=== PATIENT | male | born 1960 | race Caucasian/White ===

== ENCOUNTER 2018-02-16 07:07 | Inpatient (IN) | payer MEDICAID ==
[~2018-02-16] VITALS: Ht 190.5 cm; Wt 70.2 kg
[2018-02-16] VITALS (13 sets, daily range): BP systolic 88–119; BP diastolic 51–73
[~2018-02-16 07:07] MED LIST: ALBU2.5V12 NEB; ASPI81TA52 PO; ATOR-2 PO; BECL7.3A7 IH; CLOP75TA15 PO; OMEP-84 PO; SILD100T PO; TRAZ-219 PO
[2018-02-16 08:59] LABS: HEMATOCRIT 45.2 % (42.0-52.0); HEMOGLOBIN 15.1 g/dl (14.0-17.9); MEAN CORPUSCULAR HEMOGLOBIN 34.8 PG (27.0-31.0); MEAN CORPUSCULAR HGB CONC 33.5 % (33.0-36.5); MEAN CORPUSCULAR VOLUME 103.9 FL (78-98); PLATELET COUNT 489 X10'3 (140-440); RED BLOOD COUNT 4.35 X10'6 (4.70-6.10); RED CELL DISTRIBUTION WIDTH 14.4 % (11.5-14.5); WHITE BLOOD COUNT 7.6 X10'3 (4.5-11.0)
[2018-02-16 09:00] LABS: BASOPHILS % (AUTO) 0.6 % (0-1); EOSINOPHILS # (AUTO) 0.2 X10'3 (0-0.9); EOSINOPHILS % (AUTO) 2.2 % (0-6); LYMPHOCYTES # (AUTO) 1.9 X10'3 (1.1-4.8); LYMPHOCYTES % (AUTO) 24.8 % (21-51); MONOCYTES # (AUTO) 0.5 X10'3 (0-0.9); MONOCYTES % (AUTO) 7.2 % (2-12); NEUTROPHILS % (AUTO) 65.2 % (42-75)
[2018-02-16] MEDS ORDERED: ondansetron/PF 4mg/2ml inj IV PRN ×2 (09:00→14:30)
[2018-02-16] MEDS ORDERED: magnesium 4gm in 100ml NS 100 ML IV PRN (09:00)
[2018-02-16] MEDS ORDERED: potassium Cl 40MEQ/NS 500ml 500 ML IV PRN ×2 (09:00)
[2018-02-16] MEDS ORDERED: potassium Cl 20 mEq SR tablet PO PRN ×2 (09:00)
[2018-02-16] MEDS ORDERED: magnesium Cl slow-release 64mg tablet PO PRN (09:00)
[2018-02-16] MEDS ORDERED: magnesium 1gm/100ml D5W IVPB 100 ML IV PRN (09:00)
[2018-02-16 09:13] LABS: ALANINE AMINOTRANSFERASE 21 U/L (12-78); ALBUMIN 3.6 G/DL (3.4-5.0); ALBUMIN/GLOBULIN RATIO 0.9 (1.1-1.5); ALKALINE PHOSPHATASE 165 IU/L (46-116); ANION GAP 9 (8-16); ASPARTATE AMINO TRANSFERASE 16 U/L (10-37); BILIRUBIN,TOTAL 0.4 MG/DL (0.1-1.0); BLOOD UREA NITROGEN 6 MG/DL (7-18); BUN/CREATININE RATIO 6.6 (5.4-32.0); CALCIUM 9.4 MG/DL (8.5-10.1); CHLORIDE 103 MMOL/L (99-107); CREATININE 0.91 MG/DL (0.60-1.10); GLUCOSE 103 MG/DL (70-104); POTASSIUM 4.1 MMOL/L (3.5-5.1); SODIUM 140 MMOL/L (135-145); TOTAL CARBON DIOXIDE 27.8 MMOL/L (24-32); TOTAL PROTEIN 7.8 G/DL (6.4-8.2); eGFR 86 ML/MIN
[2018-02-16] MEDS ORDERED: bacitracin 15gm ointment TP ONE (14:21)
[2018-02-16] MEDS ORDERED: ceFAZolin 1000mg inj ONE (14:21)
[2018-02-16] MEDS ORDERED: ringers solution, lacted 1,000 ML IV SCH (14:26)
[2018-02-16] MEDS ORDERED: hydrALAZINE 20mg/ml inj. IV PRN (14:30)
[2018-02-16] MEDS ORDERED: enalaprilat dihydrate 2.5mg/2ml vial IV PRN (14:30)
[2018-02-16] MEDS ORDERED: fentaNYL/PF 50MCG/1 ML 2ML syringe IV PRN ×2 (14:30)
[2018-02-16] MEDS ORDERED: morphine 4 MG/ML inj SYRINge IV PRN ×2 (14:30)
[2018-02-16] MEDS ORDERED: sevoflurane 250ml liquid IH ONE (14:46)
[2018-02-16] MEDS ORDERED: fentaNYL/PF 50MCG/1 ML 2ML syringe ONE (14:54)
[2018-02-16] MEDS ORDERED: midazolam 2 mg/2 ml injection ONE (14:54)
[2018-02-16] MEDS ORDERED: phenylephrine 10mg/ml inj. ONE (15:08)
[2018-02-16] MEDS ORDERED: LIDOcaine 2% (20mg/ml) 5ml vial ONE (15:27)
[2018-02-16] MEDS ORDERED: propofol inj 20 ML IV ONE (15:27)
[2018-02-16] MEDS: HYDROcodone/acetaminophen 5mg/325mg tablet PO PRN ×2 (17:32→21:31)
[2018-02-16] MEDS: lactobacillus rhamnosus 10,000 MMU CELLS/CAPSULE PO SCH (20:57)
[2018-02-16] MEDS ORDERED: traZODone 50mg tablet PO SCH (21:00)
[2018-02-16] MEDS: ceFAZolin 1GM/D5W- ADD-VANTAGE 50 ML IV SCH (21:23)
[2018-02-16] MEDS: albuterol 2.5 MG/3 ML nebule NEB SCH (22:00)
[2018-02-17] VITALS: BP 103/56
[2018-02-17] MEDS: ceFAZolin 1GM/D5W- ADD-VANTAGE 50 ML IV SCH ×2 (02:16→08:20)
[2018-02-17] MEDS: albuterol 2.5 MG/3 ML nebule NEB SCH ×2 (03:00→07:31)
[2018-02-17 05:42] LABS: BASOPHILS # (AUTO) 0.1 X10'3 (0-0.2); BASOPHILS % (AUTO) 0.5 % (0-1); EOSINOPHILS # (AUTO) 0.1 X10'3 (0-0.9); EOSINOPHILS % (AUTO) 1.4 % (0-6); HEMATOCRIT 43.7 % (42.0-52.0); HEMOGLOBIN 14.4 g/dl (14.0-17.9); LYMPHOCYTES % (AUTO) 10.3 % (21-51); MEAN CORPUSCULAR HEMOGLOBIN 34.3 PG (27.0-31.0); MEAN CORPUSCULAR VOLUME 103.9 FL (78-98); MEAN PLATELET VOLUME 7.6 FL (7.4-10.4); MONOCYTES # (AUTO) 0.4 X10'3 (0-0.9); MONOCYTES % (AUTO) 4.5 % (2-12); NEUTROPHILS # (AUTO) 8.3 X10'3 (1.8-7.7); NEUTROPHILS % (AUTO) 83.3 % (42-75); PLATELET COUNT 462 X10'3 (140-440); RED BLOOD COUNT 4.21 X10'6 (4.70-6.10); RED CELL DISTRIBUTION WIDTH 13.8 % (11.5-14.5); WHITE BLOOD COUNT 9.9 X10'3 (4.5-11.0)
[2018-02-17 05:57] LABS: ALBUMIN 3.3 G/DL (3.4-5.0); ANION GAP 12 (8-16); BLOOD UREA NITROGEN 12 MG/DL (7-18); BUN/CREATININE RATIO 13.3 (5.4-32.0); CALCIUM 9.5 MG/DL (8.5-10.1); CHLORIDE 103 MMOL/L (99-107); GLUCOSE 135 MG/DL (70-104); POTASSIUM 4.2 MMOL/L (3.5-5.1); SODIUM 139 MMOL/L (135-145); TOTAL CARBON DIOXIDE 24.5 MMOL/L (24-32); eGFR 87 ML/MIN
[2018-02-17 07:11] VITALS: BP 136/70
[2018-02-17] MEDS ORDERED: pantoprazole 40mg Tablet.DR PO SCH (07:30)
[2018-02-17] MEDS ORDERED: clopidogrel 75mg tablet PO SCH (08:00)
[2018-02-17] MEDS ORDERED: K and/or MAG REPLACEMENT MC SCH (08:00)
[2018-02-17] MEDS ORDERED: atorvastatin 20mg tablet PO SCH (08:00)
[2018-02-17] MEDS ORDERED: budesonide 0.5mg/2ml UD nebule IH SCH (08:00)
[2018-02-17] MEDS ORDERED: aspirin 81mg tablet.DR PO SCH (08:00)
[2018-02-17] MEDS: lactobacillus rhamnosus 10,000 MMU CELLS/CAPSULE PO SCH (08:19)
[2018-02-17] MEDS: HYDROcodone/acetaminophen 5mg/325mg tablet PO PRN ×2 (08:19→11:36)
[2018-02-17] MEDS ORDERED: CEPH250T PO (11:02)
[2018-02-17 12:00] VITALS: BP 121/74
[2018-02-17] MEDS ORDERED: traZODone 50mg tablet PO SCH ×2 (20:00→21:00)
[2018-02-17] MEDS ORDERED: non-formulary drug (Trazodone HCl 1 TAB) PO SCH (21:00)
== END 2018-02-17 13:50 | disposition home or self-care (01) | DRG 813 ==
LOC: ER 07:08 → ED HOLD 08:58 → SUR 3N 11:41 → PACU 14:21 → SUR 3N 16:16
PROVIDERS: ADMIT Internal Medicine; ATTEND Internal Medicine
PROC: 0Y9J0ZZ Drainage of Left Lower Leg, Open Approach (ICD-10-PCS; 2018-02-16)
PROC: 3E02340 Introduction of Influenza Vaccine into Muscle, Percutaneous Approach (ICD-10-PCS; principal; 2018-02-17)
DX: M96.841 Postprocedural hematoma of a musculoskeletal structure following other procedure (principal); I89.8 Other specified noninfective disorders of lymphatic vessels and lymph nodes; E78.00 Pure hypercholesterolemia, unspecified; E78.5 Hyperlipidemia, unspecified; I10 Essential (primary) hypertension; I73.9 Peripheral vascular disease, unspecified; J44.9 Chronic obstructive pulmonary disease, unspecified; Y83.2 Surgical operation with anastomosis, bypass or graft as the cause of abnormal reaction of the patient, or of later complication, without mention of misadventure at the time of the procedure; Y82.8 Other medical devices associated with adverse incidents; K21.9 Gastro-esophageal reflux disease without esophagitis; S80.12XA Contusion of left lower leg, initial encounter; F12.90 Cannabis use, unspecified, uncomplicated; Z79.02 Long term (current) use of antithrombotics/antiplatelets; Z79.51 Long term (current) use of inhaled steroids; Z79.82 Long term (current) use of aspirin; Z87.891 Personal history of nicotine dependence; Z23 Encounter for immunization; Z91.030 Bee allergy status; Z79.899 Other long term (current) drug therapy; Y92.89 Other specified places as the place of occurrence of the external cause
CPT/HCPCS: 36415; 80048; 80053; 83735; 85025; 85610; 87070; 87075; 87077; 87186; 93005; 94760; 99285; A7000; G0378; J0690; J2001; J2250; J2370; J2704; J3010; J7120; Q2037

== ENCOUNTER 2018-03-01 13:27 | Inpatient (IN) | payer MEDICAID ==
[2018-03-01] VITALS (16 sets, daily range): BP systolic 101–138; BP diastolic 57–88
[~2018-03-01] VITALS: Ht 190.5 cm; Wt 71.0 kg
[~2018-03-01 13:27] MED LIST changes: +cefazolin/dext.iso 2gm/100 ML IV ONE; +famotidine 20mg tablet PO ONE; +ringers solution, lacted 1,000 ML IV SCH
[2018-03-01] MEDS ORDERED: LYR25C PO (14:14)
[2018-03-01] MEDS: albuterol 2.5 MG/3 ML nebule NEB PRN (14:14)
[2018-03-01] MEDS ORDERED: LISI40TA4 PO (14:14)
[2018-03-01] MEDS ORDERED: ALBU18HF2 INH (14:14)
[2018-03-01] MEDS ORDERED: LAMO100T2 PO (14:14)
[2018-03-01] MEDS ORDERED: LURA20TA PO (14:14)
[2018-03-01] MEDS ORDERED: famotidine 20mg tablet PO ONE (14:15)
[2018-03-01 14:39] LABS: BASOPHILS % (AUTO) 0.2 % (0-1); EOSINOPHILS # (AUTO) 0.6 X10'3 (0-0.9); EOSINOPHILS % (AUTO) 2.5 % (0-6); LYMPHOCYTES # (AUTO) 2.3 X10'3 (1.1-4.8); LYMPHOCYTES % (AUTO) 10.3 % (21-51); MEAN CORPUSCULAR VOLUME 102.8 FL (78-98); MEAN PLATELET VOLUME 7.4 FL (7.4-10.4); MONOCYTES # (AUTO) 1.1 X10'3 (0-0.9); MONOCYTES % (AUTO) 5.2 % (2-12); NEUTROPHILS # (AUTO) 17.9 X10'3 (1.8-7.7); NEUTROPHILS % (AUTO) 81.8 % (42-75); PRE OP HEMATOCRIT 44.9 % (42.0-52.0); PRE OP HEMOGLOBIN 14.8 g/dL (14.0-17.9); PRE OP PLATELET COUNT 321 X10'3 (140-440); RED BLOOD COUNT 4.37 X10'6 (4.70-6.10); RED CELL DISTRIBUTION WIDTH 14.3 % (11.5-14.5)
[2018-03-01 14:47] LABS: ALBUMIN 3.8 G/DL (3.4-5.0); ALKALINE PHOSPHATASE 150 IU/L (46-116); BLOOD UREA NITROGEN 9 MG/DL (7-18); BUN/CREATININE RATIO 10.6 (5.4-32.0); CALCIUM 9.3 MG/DL (8.5-10.1); CHLORIDE 101 MMOL/L (99-107); CREATININE 0.85 MG/DL (0.60-1.10); PRE OP ALT 23 U/L (30-65); PRE OP ANION GAP 12 (8-16); PRE OP AST 17 U/L (10-37); PRE OP BILIRUB, TOTAL 0.4 MG/DL (0.0-1.0); PRE OP GLUCOSE 100 MG/DL (70-104); PRE OP POTASSIUM 4.2 MMOL/L (3.4-5.1); PRE OP SODIUM 139 MMOL/L (135-145); TOTAL CARBON DIOXIDE 25.7 MMOL/L (24-32); TOTAL PROTEIN 7.7 G/DL (6.4-8.2); eGFR > 90 ML/MIN
[2018-03-01 14:48] LABS: PRE OP PROTIME 9.9 SECONDS (9.0-12.0)
[2018-03-01] MEDS ORDERED: midazolam 2 mg/2 ml injection ONE (16:24)
[2018-03-01] MEDS ORDERED: fentaNYL /PF 50mcg/ml 5ml ampule ONE (16:24)
[2018-03-01] MEDS ORDERED: propofol inj 20 ML IV ONE (16:52)
[2018-03-01] MEDS ORDERED: LIDOcaine 2% (20mg/ml) 5ml vial ONE (16:52)
[2018-03-01] MEDS ORDERED: sevoflurane 250ml liquid IH ONE (16:55)
[2018-03-01] MEDS ORDERED: proCHLORperazine 10 MG/2 ml inj IV PRN (17:35)
[2018-03-01] MEDS ORDERED: meperidine/PF 25mg/ml syringe IV PRN ×3 (17:35)
[2018-03-01] MEDS ORDERED: ondansetron/PF 4mg/2ml inj IV PRN ×2 (17:35→18:00)
[2018-03-01] MEDS ORDERED: morphine 4 MG/ML inj SYRINge IV PRN ×2 (17:35)
[2018-03-01] MEDS ORDERED: ringers solution, lacted 1,000 ML IV SCH (17:35)
[2018-03-01] MEDS ORDERED: dexamethasone sod phosphate 4mg/ml inj. ONE (17:37)
[2018-03-01] MEDS ORDERED: ondansetron/PF 4mg/2ml inj ONE (17:37)
[2018-03-01] MEDS ORDERED: vancomycin/NS 1 GM ADD-VANTAGE 250 ML IV SCH (19:00)
[2018-03-01] MEDS: potassium CL 20mEq in D5-1/2NS 1,000 ML IV SCH (19:21)
[2018-03-01] MEDS ORDERED: non-formulary drug (Sildenafil Citrate* (Viagra*) 1 TAB) PO SCH (21:05)
[2018-03-01] MEDS ORDERED: non-formulary drug (Albuterol Sulfate 1 VIAL) NEB PRN (21:05)
[2018-03-01] MEDS: traZODone 50mg tablet PO SCH (22:44)
[2018-03-01] MEDS: lurasidone 20mg tablet PO SCH (22:45)
[2018-03-01] MEDS: HYDROcodone/acetaminophen 10/325mg tab PO PRN (22:54)
[2018-03-01] MEDS: lamoTRIgine 100mg tablet PO SCH (22:58)
[2018-03-02] VITALS: BP 116/64
[2018-03-02 04:00] VITALS: BP 113/72
[2018-03-02] MEDS: potassium CL 20mEq in D5-1/2NS 1,000 ML IV SCH ×4 (04:50→23:39)
[2018-03-02 04:51] LABS: BASOPHILS % (AUTO) 0.1 % (0-1); EOSINOPHILS % (AUTO) 0.7 % (0-6); HEMATOCRIT 39.5 % (42.0-52.0); HEMOGLOBIN 13.1 g/dl (14.0-17.9); LYMPHOCYTES # (AUTO) 0.8 X10'3 (1.1-4.8); LYMPHOCYTES % (AUTO) 14.7 % (21-51); MEAN CORPUSCULAR HEMOGLOBIN 33.9 PG (27.0-31.0); MEAN CORPUSCULAR HGB CONC 33.1 % (33.0-36.5); MEAN CORPUSCULAR VOLUME 102.3 FL (78-98); MEAN PLATELET VOLUME 7.8 FL (7.4-10.4); MONOCYTES # (AUTO) 0.2 X10'3 (0-0.9); NEUTROPHILS # (AUTO) 4.2 X10'3 (1.8-7.7); NEUTROPHILS % (AUTO) 80.5 % (42-75); PLATELET COUNT 278 X10'3 (140-440); RED BLOOD COUNT 3.86 X10'6 (4.70-6.10); RED CELL DISTRIBUTION WIDTH 14.4 % (11.5-14.5); WHITE BLOOD COUNT 5.2 X10'3 (4.5-11.0)
[2018-03-02] MEDS: HYDROcodone/acetaminophen 10/325mg tab PO PRN ×3 (04:53→23:48)
[2018-03-02] MEDS ORDERED: vancomycin/NS 1 GM ADD-VANTAGE 250 ML IV ONE ×2 (06:30→06:35)
[2018-03-02] MEDS: atorvastatin 20mg tablet PO SCH (07:27)
[2018-03-02] MEDS: pantoprazole 40mg Tablet.DR PO SCH (07:28)
[2018-03-02] MEDS: aspirin 81mg tablet.DR PO SCH (07:28)
[2018-03-02] MEDS: clopidogrel 75mg tablet PO SCH (07:28)
[2018-03-02 07:41] VITALS: BP 97/58
[2018-03-02] MEDS ORDERED: pregabalin 25mg capsule PO SCH (08:00)
[2018-03-02] MEDS: lisinopril 20mg tablet PO SCH (08:00)
[2018-03-02] MEDS: budesonide 0.5mg/2ml UD nebule IH SCH ×2 (09:44→19:49)
[2018-03-02] MEDS: albuterol 2.5 MG/3 ML nebule NEB PRN ×2 (09:44→19:50)
[2018-03-02] MEDS ORDERED: vancomycin/NS 1 GM ADD-VANTAGE 250 ML IV SCH ×2 (10:00→20:00)
[2018-03-02 12:00] VITALS: BP 90/48
[2018-03-02] MEDS ORDERED: iohexol 350MG/ML 100ml bottle IV ONE (14:56)
[2018-03-02 15:57] LABS: BASOPHILS % (AUTO) 0.3 % (0-1); EOSINOPHILS # (AUTO) 0.2 X10'3 (0-0.9); EOSINOPHILS % (AUTO) 1.5 % (0-6); HEMATOCRIT 36.9 % (42.0-52.0); HEMOGLOBIN 12.1 g/dl (14.0-17.9); LYMPHOCYTES # (AUTO) 1.7 X10'3 (1.1-4.8); LYMPHOCYTES % (AUTO) 14.7 % (21-51); MEAN CORPUSCULAR HEMOGLOBIN 33.6 PG (27.0-31.0); MEAN CORPUSCULAR HGB CONC 32.8 % (33.0-36.5); MEAN CORPUSCULAR VOLUME 102.5 FL (78-98); MEAN PLATELET VOLUME 7.3 FL (7.4-10.4); MONOCYTES # (AUTO) 0.8 X10'3 (0-0.9); MONOCYTES % (AUTO) 6.5 % (2-12); NEUTROPHILS # (AUTO) 9.1 X10'3 (1.8-7.7); PLATELET COUNT 280 X10'3 (140-440); RED CELL DISTRIBUTION WIDTH 14.4 % (11.5-14.5); WHITE BLOOD COUNT 11.8 X10'3 (4.5-11.0)
[2018-03-02] MEDS: vancomycin/NS 1 GM ADD-VANTAGE 250 ML IV SCH ×2 (16:45→23:46)
[2018-03-02 19:30] VITALS: BP 125/68
[2018-03-02] MEDS ORDERED: lamoTRIgine 100mg tablet PO SCH (21:00)
[2018-03-02] MEDS: traZODone 50mg tablet PO SCH (21:16)
[2018-03-02] MEDS: lactobacillus rhamnosus 10,000 MMU CELLS/CAPSULE PO SCH (21:17)
[2018-03-02] MEDS: lamoTRIgine 100mg tablet PO SCH (21:17)
[2018-03-03 04:53] LABS: BASOPHILS % (AUTO) 0.4 % (0-1); EOSINOPHILS # (AUTO) 0.1 X10'3 (0-0.9); EOSINOPHILS % (AUTO) 0.6 % (0-6); HEMATOCRIT 35.7 % (42.0-52.0); HEMOGLOBIN 11.6 g/dl (14.0-17.9); LYMPHOCYTES # (AUTO) 2.6 X10'3 (1.1-4.8); LYMPHOCYTES % (AUTO) 26.9 % (21-51); MEAN CORPUSCULAR HEMOGLOBIN 33.4 PG (27.0-31.0); MEAN CORPUSCULAR HGB CONC 32.5 % (33.0-36.5); MEAN CORPUSCULAR VOLUME 102.9 FL (78-98); MEAN PLATELET VOLUME 7.9 FL (7.4-10.4); MONOCYTES # (AUTO) 0.6 X10'3 (0-0.9); NEUTROPHILS # (AUTO) 6.3 X10'3 (1.8-7.7); NEUTROPHILS % (AUTO) 66.1 % (42-75); PLATELET COUNT 265 X10'3 (140-440); RED BLOOD COUNT 3.47 X10'6 (4.70-6.10); RED CELL DISTRIBUTION WIDTH 14.6 % (11.5-14.5); WHITE BLOOD COUNT 9.5 X10'3 (4.5-11.0)
[2018-03-03 07:00] VITALS: BP 106/73
[2018-03-03] MEDS: lisinopril 20mg tablet PO SCH (07:21)
[2018-03-03] MEDS: lactobacillus rhamnosus 10,000 MMU CELLS/CAPSULE PO SCH ×2 (07:26→20:27)
[2018-03-03] MEDS: pantoprazole 40mg Tablet.DR PO SCH (07:26)
[2018-03-03] MEDS: vancomycin/NS 1 GM ADD-VANTAGE 250 ML IV SCH (07:27)
[2018-03-03] MEDS: atorvastatin 20mg tablet PO SCH (07:27)
[2018-03-03] MEDS: pregabalin 75mg capsule PO SCH (07:28)
[2018-03-03] MEDS: lurasidone 20mg tablet PO SCH ×2 (08:00→21:11)
[2018-03-03] MEDS: budesonide 0.5mg/2ml UD nebule IH SCH ×2 (08:15→21:03)
[2018-03-03] MEDS: clopidogrel 75mg tablet PO SCH (10:27)
[2018-03-03] MEDS: HYDROcodone/acetaminophen 10/325mg tab PO PRN ×3 (10:28→21:18)
[2018-03-03] MEDS: aspirin 81mg tablet.DR PO SCH (10:28)
[2018-03-03] MEDS: potassium CL 20mEq in D5-1/2NS 1,000 ML IV SCH (11:12)
[2018-03-03 12:00] VITALS: BP 105/69
[2018-03-03] MEDS: doxycycline inj 100 MG in normal saline 100ml IV soln 100 ML IV SCH ×2 (13:02→19:41)
[2018-03-03] MEDS ORDERED: VANCOMYCIN LEVEL IV NR (14:30)
[2018-03-03 18:00] VITALS: BP 124/68
[2018-03-03] MEDS: albuterol 2.5 MG/3 ML nebule NEB PRN (21:03)
[2018-03-03] MEDS: traZODone 50mg tablet PO SCH (21:12)
[2018-03-03] MEDS: lamoTRIgine 100mg tablet PO SCH (21:12)
[2018-03-04] VITALS: BP 150/78
[2018-03-04 05:20] LABS: BASOPHILS % (AUTO) 0.5 % (0-1); EOSINOPHILS # (AUTO) 0.2 X10'3 (0-0.9); EOSINOPHILS % (AUTO) 2.4 % (0-6); HEMATOCRIT 38.7 % (42.0-52.0); HEMOGLOBIN 12.4 g/dl (14.0-17.9); LYMPHOCYTES # (AUTO) 3.1 X10'3 (1.1-4.8); LYMPHOCYTES % (AUTO) 34.4 % (21-51); MEAN CORPUSCULAR HGB CONC 32.1 % (33.0-36.5); MEAN CORPUSCULAR VOLUME 102.8 FL (78-98); MEAN PLATELET VOLUME 7.7 FL (7.4-10.4); MONOCYTES # (AUTO) 0.6 X10'3 (0-0.9); MONOCYTES % (AUTO) 7.3 % (2-12); NEUTROPHILS # (AUTO) 4.9 X10'3 (1.8-7.7); NEUTROPHILS % (AUTO) 55.4 % (42-75); PLATELET COUNT 300 X10'3 (140-440); RED BLOOD COUNT 3.77 X10'6 (4.70-6.10); RED CELL DISTRIBUTION WIDTH 14.7 % (11.5-14.5); WHITE BLOOD COUNT 8.9 X10'3 (4.5-11.0)
[2018-03-04] MEDS: pantoprazole 40mg Tablet.DR PO SCH (07:00)
[2018-03-04] MEDS: budesonide 0.5mg/2ml UD nebule IH SCH ×2 (07:40→19:47)
[2018-03-04] MEDS: atorvastatin 20mg tablet PO SCH (08:00)
[2018-03-04] MEDS: lactobacillus rhamnosus 10,000 MMU CELLS/CAPSULE PO SCH ×2 (08:00→20:33)
[2018-03-04] MEDS: pregabalin 75mg capsule PO SCH (08:00)
[2018-03-04] MEDS: clopidogrel 75mg tablet PO SCH (08:00)
[2018-03-04] MEDS: aspirin 81mg tablet.DR PO SCH (08:00)
[2018-03-04] MEDS: doxycycline inj 100 MG in normal saline 100ml IV soln 100 ML IV SCH (08:00)
[2018-03-04] MEDS: lisinopril 20mg tablet PO SCH (08:00)
[2018-03-04 09:34] VITALS: BP 114/65
[2018-03-04 12:27] VITALS: BP 119/59
[2018-03-04] MEDS: DOXYCYCLINE 100MG CAPSULE PO SCH (17:16)
[2018-03-04] MEDS: albuterol 2.5 MG/3 ML nebule NEB PRN (19:47)
[2018-03-04 20:00] VITALS: BP 128/70
[2018-03-04] MEDS: lurasidone 20mg tablet PO SCH (20:33)
[2018-03-04] MEDS: traZODone 50mg tablet PO SCH (20:34)
[2018-03-04] MEDS: lamoTRIgine 100mg tablet PO SCH (20:34)
[2018-03-04] MEDS: HYDROcodone/acetaminophen 10/325mg tab PO PRN (20:35)
[2018-03-05] VITALS: BP 96/53
[2018-03-05 04:31] LABS: BASOPHILS % (AUTO) 0.4 % (0-1); EOSINOPHILS # (AUTO) 0.3 X10'3 (0-0.9); HEMATOCRIT 41.9 % (42.0-52.0); HEMOGLOBIN 13.7 g/dl (14.0-17.9); LYMPHOCYTES # (AUTO) 2.5 X10'3 (1.1-4.8); LYMPHOCYTES % (AUTO) 27.4 % (21-51); MEAN CORPUSCULAR HEMOGLOBIN 33.7 PG (27.0-31.0); MEAN CORPUSCULAR HGB CONC 32.7 % (33.0-36.5); MEAN CORPUSCULAR VOLUME 102.9 FL (78-98); MEAN PLATELET VOLUME 7.8 FL (7.4-10.4); MONOCYTES # (AUTO) 0.7 X10'3 (0-0.9); MONOCYTES % (AUTO) 8.1 % (2-12); NEUTROPHILS # (AUTO) 5.7 X10'3 (1.8-7.7); NEUTROPHILS % (AUTO) 61.1 % (42-75); PLATELET COUNT 294 X10'3 (140-440); RED BLOOD COUNT 4.07 X10'6 (4.70-6.10); RED CELL DISTRIBUTION WIDTH 14.4 % (11.5-14.5); WHITE BLOOD COUNT 9.3 X10'3 (4.5-11.0)
[2018-03-05 07:00] VITALS: BP 101/66
[2018-03-05] MEDS: lisinopril 20mg tablet PO SCH (07:42)
[2018-03-05] MEDS: pregabalin 75mg capsule PO SCH (07:42)
[2018-03-05] MEDS: clopidogrel 75mg tablet PO SCH (07:42)
[2018-03-05] MEDS: lactobacillus rhamnosus 10,000 MMU CELLS/CAPSULE PO SCH ×2 (07:42→20:01)
[2018-03-05] MEDS: aspirin 81mg tablet.DR PO SCH (07:42)
[2018-03-05] MEDS: pantoprazole 40mg Tablet.DR PO SCH (07:43)
[2018-03-05] MEDS: atorvastatin 20mg tablet PO SCH (07:43)
[2018-03-05] MEDS: albuterol 2.5 MG/3 ML nebule NEB PRN ×2 (08:24→21:10)
[2018-03-05] MEDS: budesonide 0.5mg/2ml UD nebule IH SCH ×2 (08:24→21:10)
[2018-03-05] MEDS: DOXYCYCLINE 100MG CAPSULE PO SCH ×2 (08:43→17:50)
[2018-03-05 11:00] VITALS: BP 95/50
[2018-03-05 20:00] VITALS: BP 99/63
[2018-03-05] MEDS: lamoTRIgine 100mg tablet PO SCH (20:01)
[2018-03-05] MEDS: lurasidone 20mg tablet PO SCH (20:01)
[2018-03-05] MEDS: traZODone 50mg tablet PO SCH (20:01)
[2018-03-06] VITALS: BP 89/65
[2018-03-06 05:15] LABS: BASOPHILS % (AUTO) 0.3 % (0-1); EOSINOPHILS # (AUTO) 0.4 X10'3 (0-0.9); EOSINOPHILS % (AUTO) 4.5 % (0-6); HEMATOCRIT 43.7 % (42.0-52.0); HEMOGLOBIN 14.4 g/dl (14.0-17.9); LYMPHOCYTES # (AUTO) 2.1 X10'3 (1.1-4.8); MEAN CORPUSCULAR HEMOGLOBIN 33.5 PG (27.0-31.0); MEAN CORPUSCULAR HGB CONC 32.9 % (33.0-36.5); MEAN CORPUSCULAR VOLUME 101.6 FL (78-98); MEAN PLATELET VOLUME 7.7 FL (7.4-10.4); MONOCYTES # (AUTO) 0.7 X10'3 (0-0.9); MONOCYTES % (AUTO) 8.3 % (2-12); NEUTROPHILS # (AUTO) 4.8 X10'3 (1.8-7.7); NEUTROPHILS % (AUTO) 59.9 % (42-75); PLATELET COUNT 331 X10'3 (140-440); RED CELL DISTRIBUTION WIDTH 14.6 % (11.5-14.5); WHITE BLOOD COUNT 7.9 X10'3 (4.5-11.0)
[2018-03-06] MEDS: lisinopril 20mg tablet PO SCH (08:00)
[2018-03-06 08:07] VITALS: BP 100/78
[2018-03-06] MEDS: budesonide 0.5mg/2ml UD nebule IH SCH ×2 (08:09→19:23)
[2018-03-06] MEDS: albuterol 2.5 MG/3 ML nebule NEB PRN (08:09)
[2018-03-06] MEDS: aspirin 81mg tablet.DR PO SCH (08:55)
[2018-03-06] MEDS: pantoprazole 40mg Tablet.DR PO SCH (08:55)
[2018-03-06] MEDS: lactobacillus rhamnosus 10,000 MMU CELLS/CAPSULE PO SCH ×2 (08:55→20:30)
[2018-03-06] MEDS: atorvastatin 20mg tablet PO SCH (09:01)
[2018-03-06] MEDS: DOXYCYCLINE 100MG CAPSULE PO SCH ×2 (09:02→17:45)
[2018-03-06] MEDS: pregabalin 75mg capsule PO SCH (09:02)
[2018-03-06] MEDS: magnesium hydroxide 30ml (MOM) UD suspension PO SCH ×2 (09:06→20:30)
[2018-03-06] MEDS: clopidogrel 75mg tablet PO SCH (09:06)
[2018-03-06 12:35] VITALS: BP 117/72
[2018-03-06 20:00] VITALS: BP 117/80
[2018-03-06] MEDS: lurasidone 20mg tablet PO SCH (20:30)
[2018-03-06] MEDS: traZODone 50mg tablet PO SCH (20:30)
[2018-03-06] MEDS: lamoTRIgine 100mg tablet PO SCH (20:30)
[2018-03-06] MEDS: HYDROcodone/acetaminophen 10/325mg tab PO PRN (20:30)
[2018-03-07] VITALS: BP 106/72
[2018-03-07 07:22] VITALS: BP 116/71
[2018-03-07] MEDS: budesonide 0.5mg/2ml UD nebule IH SCH ×2 (07:42→19:53)
[2018-03-07] MEDS: pantoprazole 40mg Tablet.DR PO SCH (09:02)
[2018-03-07] MEDS: lactobacillus rhamnosus 10,000 MMU CELLS/CAPSULE PO SCH ×2 (09:02→20:14)
[2018-03-07] MEDS: aspirin 81mg tablet.DR PO SCH (09:03)
[2018-03-07] MEDS: atorvastatin 20mg tablet PO SCH (09:04)
[2018-03-07] MEDS: magnesium hydroxide 30ml (MOM) UD suspension PO SCH ×2 (09:05→20:14)
[2018-03-07] MEDS: pregabalin 75mg capsule PO SCH (09:05)
[2018-03-07] MEDS: lisinopril 20mg tablet PO SCH (09:06)
[2018-03-07] MEDS: DOXYCYCLINE 100MG CAPSULE PO SCH ×2 (09:07→17:30)
[2018-03-07] MEDS: clopidogrel 75mg tablet PO SCH (09:07)
[2018-03-07 11:30] VITALS: BP 100/67
[2018-03-07] MEDS: HYDROcodone/acetaminophen 10/325mg tab PO PRN ×2 (12:43→20:15)
[2018-03-07 20:00] VITALS: BP 145/67
[2018-03-07] MEDS: lamoTRIgine 100mg tablet PO SCH (20:14)
[2018-03-07] MEDS: traZODone 50mg tablet PO SCH (20:14)
[2018-03-07] MEDS: lurasidone 20mg tablet PO SCH (20:14)
[2018-03-08] VITALS: BP 117/67
[2018-03-08] MEDS: budesonide 0.5mg/2ml UD nebule IH SCH ×2 (07:57→21:08)
[2018-03-08 08:38] VITALS: BP 110/73
[2018-03-08] MEDS: clopidogrel 75mg tablet PO SCH (08:46)
[2018-03-08] MEDS: magnesium hydroxide 30ml (MOM) UD suspension PO SCH ×2 (08:46→20:00)
[2018-03-08] MEDS: atorvastatin 20mg tablet PO SCH (08:46)
[2018-03-08] MEDS: DOXYCYCLINE 100MG CAPSULE PO SCH ×2 (08:46→17:40)
[2018-03-08] MEDS: lactobacillus rhamnosus 10,000 MMU CELLS/CAPSULE PO SCH ×2 (08:46→20:20)
[2018-03-08] MEDS: aspirin 81mg tablet.DR PO SCH (08:46)
[2018-03-08] MEDS: pregabalin 75mg capsule PO SCH (08:47)
[2018-03-08] MEDS: lisinopril 20mg tablet PO SCH (08:47)
[2018-03-08] MEDS: pantoprazole 40mg Tablet.DR PO SCH (09:00)
[2018-03-08] MEDS: HYDROcodone/acetaminophen 10/325mg tab PO PRN (09:20)
[2018-03-08 13:02] VITALS: BP 140/79
[2018-03-08 20:00] VITALS: BP 95/62
[2018-03-08] MEDS: hydrocortisone 1% cream 28gm TP SCH (20:00)
[2018-03-08] MEDS: traZODone 50mg tablet PO SCH (20:20)
[2018-03-08] MEDS: lamoTRIgine 100mg tablet PO SCH (20:20)
[2018-03-08] MEDS: nystatin 15 GM powder TP SCH (20:20)
[2018-03-08] MEDS: lurasidone 20mg tablet PO SCH (20:20)
[2018-03-08] MEDS: albuterol 2.5 MG/3 ML nebule NEB PRN (21:08)
[2018-03-09] VITALS: BP 91/54
[2018-03-09 07:00] VITALS: BP 113/70
[2018-03-09] MEDS: budesonide 0.5mg/2ml UD nebule IH SCH ×2 (07:30→19:49)
[2018-03-09] MEDS: magnesium hydroxide 30ml (MOM) UD suspension PO SCH ×2 (08:00→20:00)
[2018-03-09] MEDS: pregabalin 75mg capsule PO SCH (08:19)
[2018-03-09] MEDS: lisinopril 20mg tablet PO SCH (08:20)
[2018-03-09] MEDS: lactobacillus rhamnosus 10,000 MMU CELLS/CAPSULE PO SCH ×2 (08:20→21:00)
[2018-03-09] MEDS: DOXYCYCLINE 100MG CAPSULE PO SCH ×2 (08:20→18:20)
[2018-03-09] MEDS: clopidogrel 75mg tablet PO SCH (08:20)
[2018-03-09] MEDS: aspirin 81mg tablet.DR PO SCH (08:20)
[2018-03-09] MEDS: atorvastatin 20mg tablet PO SCH (08:21)
[2018-03-09] MEDS: enoxaparin 40mg/0.4ml syringe SUBCUT SCH (08:22)
[2018-03-09] MEDS: nystatin 15 GM powder TP SCH ×2 (08:29→21:01)
[2018-03-09] MEDS: hydrocortisone 1% cream 28gm TP SCH ×2 (08:30→20:59)
[2018-03-09] MEDS: pantoprazole 40mg Tablet.DR PO SCH (08:41)
[2018-03-09 11:00] VITALS: BP 122/80
[2018-03-09 13:00] VITALS: BP 99/67
[2018-03-09] MEDS: albuterol 2.5 MG/3 ML nebule NEB PRN (19:49)
[2018-03-09 20:00] VITALS: BP 97/68
[2018-03-09] MEDS: traZODone 50mg tablet PO SCH (20:59)
[2018-03-09] MEDS: lamoTRIgine 100mg tablet PO SCH (20:59)
[2018-03-09] MEDS: lurasidone 20mg tablet PO SCH (21:00)
[2018-03-10] VITALS: BP 90/53
[2018-03-10] MEDS: enoxaparin 40mg/0.4ml syringe SUBCUT SCH (08:00)
[2018-03-10] MEDS: clopidogrel 75mg tablet PO SCH (08:00)
[2018-03-10] MEDS: magnesium hydroxide 30ml (MOM) UD suspension PO SCH ×2 (08:00→20:00)
[2018-03-10] MEDS: aspirin 81mg tablet.DR PO SCH (08:00)
[2018-03-10 08:14] VITALS: BP 115/62
[2018-03-10 08:32] LABS: BASOPHILS % (AUTO) 0.3 % (0-1); EOSINOPHILS # (AUTO) 0.2 X10'3 (0-0.9); EOSINOPHILS % (AUTO) 2.5 % (0-6); LYMPHOCYTES # (AUTO) 2.1 X10'3 (1.1-4.8); LYMPHOCYTES % (AUTO) 23.5 % (21-51); MEAN CORPUSCULAR HEMOGLOBIN 33.8 PG (27.0-31.0); MEAN CORPUSCULAR HGB CONC 33.5 % (33.0-36.5); MEAN PLATELET VOLUME 7.6 FL (7.4-10.4); MONOCYTES # (AUTO) 0.9 X10'3 (0-0.9); MONOCYTES % (AUTO) 9.7 % (2-12); NEUTROPHILS # (AUTO) 5.7 X10'3 (1.8-7.7); PRE OP HEMATOCRIT 45.4 % (42.0-52.0); PRE OP HEMOGLOBIN 15.2 g/dL (14.0-17.9); PRE OP PLATELET COUNT 336 X10'3 (140-440); RED CELL DISTRIBUTION WIDTH 14.4 % (11.5-14.5)
[2018-03-10] MEDS: lactobacillus rhamnosus 10,000 MMU CELLS/CAPSULE PO SCH ×2 (08:40→21:12)
[2018-03-10] MEDS: pregabalin 75mg capsule PO SCH (08:40)
[2018-03-10] MEDS: atorvastatin 20mg tablet PO SCH (08:41)
[2018-03-10] MEDS: pantoprazole 40mg Tablet.DR PO SCH (08:41)
[2018-03-10] MEDS: lisinopril 20mg tablet PO SCH (08:41)
[2018-03-10] MEDS: DOXYCYCLINE 100MG CAPSULE PO SCH (08:42)
[2018-03-10 08:48] LABS: ALANINE AMINOTRANSFERASE 34 U/L (12-78); ALKALINE PHOSPHATASE 168 IU/L (46-116); ANION GAP 12 (8-16); ASPARTATE AMINO TRANSFERASE 19 U/L (10-37); BILIRUBIN,TOTAL 0.6 MG/DL (0.1-1.0); BLOOD UREA NITROGEN 14 MG/DL (7-18); BUN/CREATININE RATIO 12.6 (5.4-32.0); CALCIUM 9.7 MG/DL (8.5-10.1); CHLORIDE 101 MMOL/L (99-107); CREATININE 1.11 MG/DL (0.60-1.10); GLUCOSE 118 MG/DL (70-104); POTASSIUM 4.5 MMOL/L (3.5-5.1); SODIUM 138 MMOL/L (135-145); TOTAL CARBON DIOXIDE 24.6 MMOL/L (24-32); TOTAL PROTEIN 8.1 G/DL (6.4-8.2); eGFR 68 ML/MIN
[2018-03-10 08:49] LABS: PARTIAL THROMBOPLASTIN TIME 29 SECONDS (22-32); PROTHROMBIN TIME 9.7 SECONDS (9.0-12.0)
[2018-03-10] MEDS: HYDROcodone/acetaminophen 10/325mg tab PO PRN ×2 (10:22→21:17)
[2018-03-10] MEDS: budesonide 0.5mg/2ml UD nebule IH SCH ×2 (10:40→21:23)
[2018-03-10] MEDS: nystatin 15 GM powder TP SCH ×2 (10:51→21:15)
[2018-03-10] MEDS: hydrocortisone 1% cream 28gm TP SCH ×2 (10:51→21:15)
[2018-03-10 12:40] VITALS: BP_SYST 107; BP_SYST 115; BP_DIAS 62; BP_DIAS 70
[2018-03-10 13:00] VITALS: BP 101/63
[2018-03-10 18:00] VITALS: BP 113/63
[2018-03-10] MEDS: linezolid 600mg tablet PO SCH (20:00)
[2018-03-10] MEDS: traZODone 50mg tablet PO SCH (21:15)
[2018-03-10] MEDS: lurasidone 20mg tablet PO SCH (21:16)
[2018-03-10] MEDS: lamoTRIgine 100mg tablet PO SCH (21:16)
[2018-03-11] VITALS: BP 100/64
[2018-03-11] MEDS: HYDROcodone/acetaminophen 10/325mg tab PO PRN (02:04)
[2018-03-11 07:23] VITALS: BP 104/63
[2018-03-11] MEDS: budesonide 0.5mg/2ml UD nebule IH SCH (07:53)
[2018-03-11] MEDS: nystatin 15 GM powder TP SCH (08:00)
[2018-03-11] MEDS: magnesium hydroxide 30ml (MOM) UD suspension PO SCH (08:00)
[2018-03-11] MEDS: lisinopril 20mg tablet PO SCH (08:00)
[2018-03-11] MEDS: hydrocortisone 1% cream 28gm TP SCH (08:00)
[2018-03-11] MEDS: atorvastatin 20mg tablet PO SCH (09:18)
[2018-03-11] MEDS: clopidogrel 75mg tablet PO SCH (09:19)
[2018-03-11] MEDS: pregabalin 75mg capsule PO SCH (09:19)
[2018-03-11] MEDS: pantoprazole 40mg Tablet.DR PO SCH (09:19)
[2018-03-11] MEDS: lactobacillus rhamnosus 10,000 MMU CELLS/CAPSULE PO SCH (09:19)
[2018-03-11] MEDS: aspirin 81mg tablet.DR PO SCH (09:19)
[2018-03-11] MEDS: linezolid 600mg tablet PO SCH (09:20)
[2018-03-11] MEDS: enoxaparin 40mg/0.4ml syringe SUBCUT SCH (09:21)
[2018-03-11 11:48] VITALS: BP 108/71
[2018-03-11] MEDS ORDERED: LINE600T36 PO (16:46)
== END 2018-03-11 18:20 | disposition home health service (06) | DRG 206 ==
LOC: PAS 13:27 → SUR 3N 19:09
PROVIDERS: ADMIT Surgery; ATTEND Surgery
PROC: 0HDKXZZ Extraction of Right Lower Leg Skin, External Approach (ICD-10-PCS; principal; 2018-03-01 16:55)
PROC: B42G1ZZ Computerized Tomography (CT Scan) of Left Lower Extremity Arteries using Low Osmolar Contrast (ICD-10-PCS; 2018-03-02)
PROC: CP1 Nuclear Medicine, Musculoskeletal System, Planar Nuclear Medicine Imaging (ICD-10-PCS; 2018-03-07)
DX: T82.392A Other mechanical complication of femoral arterial graft (bypass), initial encounter (principal); E78.5 Hyperlipidemia, unspecified; I10 Essential (primary) hypertension; I73.9 Peripheral vascular disease, unspecified; K21.9 Gastro-esophageal reflux disease without esophagitis; F32.9 Major depressive disorder, single episode, unspecified; Y82.8 Other medical devices associated with adverse incidents; J44.9 Chronic obstructive pulmonary disease, unspecified; Z87.891 Personal history of nicotine dependence; Z79.899 Other long term (current) drug therapy; Z79.82 Long term (current) use of aspirin; Y92.89 Other specified places as the place of occurrence of the external cause
CPT/HCPCS: 36415; 73706; 78805; 80053; 85025; 85610; 85730; 86885; 86900; 86901; 93005; 93922; 93926; 94640; 94760; A7000; A9570; G0378; J0690; J1100; J1650; J2001; J2250; J2405; J2704; J3010; J3370; J3490; J7030; J7120; J7626; Q9967

== ENCOUNTER 2018-03-31 09:45 | Day surgery (SDC) | payer MEDICAID ==
[~2018-03-31 09:45] MED LIST changes: +ALBU18HF2 INH; +LAMO100T2 PO; +LINE600T36 PO; +LISI40TA4 PO; +LURA20TA PO; +LYR25C PO; -cefazolin/dext.iso 2gm/100 ML IV ONE; -famotidine 20mg tablet PO ONE; -ringers solution, lacted 1,000 ML IV SCH
== END 2018-03-31 12:59 | disposition home or self-care (01) ==
LOC: WOUND CARE 09:45
PROVIDERS: ATTEND Surgery
DX: T81.89XD Other complications of procedures, not elsewhere classified, subsequent encounter (principal); L97.222 Non-pressure chronic ulcer of left calf with fat layer exposed; J44.9 Chronic obstructive pulmonary disease, unspecified; I10 Essential (primary) hypertension; K21.9 Gastro-esophageal reflux disease without esophagitis; E78.5 Hyperlipidemia, unspecified; F32.9 Major depressive disorder, single episode, unspecified; I73.9 Peripheral vascular disease, unspecified; F12.90 Cannabis use, unspecified, uncomplicated; E78.00 Pure hypercholesterolemia, unspecified; Z79.82 Long term (current) use of aspirin; Z79.899 Other long term (current) drug therapy; Z87.891 Personal history of nicotine dependence; Y83.8 Other surgical procedures as the cause of abnormal reaction of the patient, or of later complication, without mention of misadventure at the time of the procedure
CPT/HCPCS: 87070; 87075; 87077; 87102; 87186; 97597; A4456

== ENCOUNTER 2018-04-08 08:37 | Day surgery (SDC) | payer MEDICAID ==
[~2018-04-08 08:37] MED LIST changes: -SILD100T PO
--- NOTE | 2018-04-08 11:15 | NUR ---
Patient ambulated independently from [facility] and was admitted to outpatient wound care for physician visit with Souleymane Willis MD. Dressing removed, wound cleansed and lidocaine applied per order. Patient assessed for changes in conditions, medications and medical history. Patient is accompanied by his friend and his home health RN from [facility]. 1020 - Dr. Willis at bedside accompanied by RN. Wound assessed, time out performed by MD/RN. Wound debrided as detailed in the physician progress/procedure note. Plan of care discussed with patient. Dressings placed per MD orders. Pt instructed that they should not be disconnected from suction for more than 2 hours at a time. If they are not able to get the suction back on they need to remove the dressing and take all of the foam out of the wound, place hydrogel gauze on/in the wound, and change the dressing daily until someone can replace the dressing. Pt instructed to call the Wound Center or their Home Health Agency immediately if they notice a change in the color or amount of the fluid in the canister, their wound looks more red than usual or has a foul smell, the skin around their wound looks reddened or irritated, the dressing feels or appears loose, they experience pain or the alarm will not turn off. Pt instructed to call 911 or go to the ED if their canister fills rapidly with blood. Patient instructed on the signs and symptoms of infection and to call the Wound Center if any occur or to go to the ED if we are closed: Increased pain in wound Increase in drainage from the wound Redness in the skin surrounding the wound Bleeding from the wound Temperature of 101 or greater Patient instructed that the weight of their body puts a large amount of pressure on their wounds. This pressure keeps the new tissue from growing and inhibits new blood vessels from forming. Explained that, if they continue to bear weight on a body part that has a wound, the time it takes to heal the wound increases, the wound may get worse or the wound may not heal at all. Patient verbalized understanding of all discharge instructions and plan of care and ambulated independently out to [facility] accompanied by his friend and home health RN in stable condition with no sign or symptom of distress at time of discharge.
== END 2018-04-08 11:05 | disposition home or self-care (01) ==
LOC: WOUND CARE 08:37
PROVIDERS: ATTEND Surgery
DX: T81.89XD Other complications of procedures, not elsewhere classified, subsequent encounter (principal); L97.222 Non-pressure chronic ulcer of left calf with fat layer exposed; J44.9 Chronic obstructive pulmonary disease, unspecified; I10 Essential (primary) hypertension; K21.9 Gastro-esophageal reflux disease without esophagitis; E78.5 Hyperlipidemia, unspecified; I73.9 Peripheral vascular disease, unspecified; E78.00 Pure hypercholesterolemia, unspecified; F32.9 Major depressive disorder, single episode, unspecified; F12.90 Cannabis use, unspecified, uncomplicated; Z79.82 Long term (current) use of aspirin; Z79.899 Other long term (current) drug therapy; Z87.891 Personal history of nicotine dependence; Y83.8 Other surgical procedures as the cause of abnormal reaction of the patient, or of later complication, without mention of misadventure at the time of the procedure
CPT/HCPCS: 97597; A4456

== ENCOUNTER 2018-04-15 04:02 | Inpatient (IN) | payer MEDICAID | END 2018-04-22 17:51 | disposition home health service (06) | LOC: ER 04:02 → SUR 3N 04-18 17:29 → ED HOLD 09:25 → CICU 2S 14:06 ==

== ENCOUNTER → 2019-08-21 | Outpatient (CLI) | payer MEDICAID ==
[~2019-08-21] MED LIST changes: -LINE600T36 PO; -TRAZ-219 PO; +TRAZ-256 PO
== END | disposition home or self-care (01) ==
LOC: RAD 09:08
PROVIDERS: ATTEND Registered Nurse
DX: M79.672 Pain in left foot (principal); M62.81 Muscle weakness (generalized)
CPT/HCPCS: 78800; A9570

== ENCOUNTER → 2020-01-26 | Outpatient (CLI) | payer MEDICAID ==
[~2020-01-26] MED LIST changes: +barium sulfate 450ml oral suspension ONE
== END | disposition home or self-care (01) ==
LOC: RAD 10:05
PROVIDERS: ATTEND Nurse Practitioner
DX: K21.9 Gastro-esophageal reflux disease without esophagitis (principal)
CPT/HCPCS: 74220

== ENCOUNTER 2020-02-12 13:51 | Day surgery (SDC) | payer MEDICAID ==
[~2020-02-12] VITALS: Ht 190.5 cm; Wt 83.0 kg
[~2020-02-12 13:51] MED LIST changes: -barium sulfate 450ml oral suspension ONE
[2020-02-12] MEDS ORDERED: LISI-604 PO (14:14)
[2020-02-12] MEDS ORDERED: diphenhydrAMINE 25mg capsule PO PRN (14:15)
[2020-02-12] MEDS ORDERED: LORazepam 0.5 MG tablet PO PRN (14:15)
[2020-02-12] MEDS ORDERED: LISI-600 PO (14:15)
[2020-02-12] MEDS ORDERED: normal saline 1,000 ML IV SCH (14:15)
[2020-02-12] MEDS ORDERED: ATOR80TA13 PO (14:16)
[2020-02-12] MEDS ORDERED: GABA300C PO (14:17)
[2020-02-12] MEDS ORDERED: LIDO5CRE18 TOP (14:17)
[2020-02-12] MEDS ORDERED: HYDR-3965 PO (14:18)
[2020-02-12] MEDS ORDERED: ASPI-611 PO (14:19)
[2020-02-12] MEDS ORDERED: SILD50TA PO (14:20)
[2020-02-12] MEDS ORDERED: MIRT7.5T11 PO (14:20)
[2020-02-12] MEDS ORDERED: BUPR150T8 PO (14:21)
[2020-02-12 14:30] VITALS: BP 128/66
[2020-02-12] MEDS ORDERED: FLU VACC QS2020-21(6MOS UP)/PF 60 MCG/0.5 ML SYRINGE IMVAC ONE (16:50)
[2020-02-12] MEDS ORDERED: midazolam 2 mg/2 ml injection ONE ×2 (18:29→19:06)
[2020-02-12] MEDS ORDERED: heparin 1,000 UNITS/NS 500ml 500 ML ONE ×2 (18:29)
[2020-02-12] MEDS ORDERED: iohexol 350MG/ML 100ml bottle IV ONE (18:29)
[2020-02-12] MEDS ORDERED: fentaNYL/PF 50MCG/1 ML 2ML syringe ONE ×2 (18:29→19:06)
[2020-02-12] MEDS ORDERED: LIDOcaine 1% (10mg/ml)w/preservative injection 20ml MDV ONE (18:29)
[2020-02-12] MEDS ORDERED: heparin 1,000unit/ml 10ml vial 10 ML ONE (19:20)
[2020-02-12] MEDS ORDERED: iohexol 350 MG/ML 50ML vial IV ONE (20:05)
[2020-02-12] MEDS ORDERED: clopidogrel 300mg tablet ONE (20:10)
--- NOTE | 2020-02-12 20:15 | NUR ---
Report called to EASTON Kemp. 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
[2020-02-12 20:30] VITALS: BP 172/86
[2020-02-12 20:45] VITALS: BP 169/79
[2020-02-12 21:00] VITALS: BP 91/70
[2020-02-12] MEDS ORDERED: proCHLORperazine 10 MG/2 ml inj IV PRN (21:05)
[2020-02-12] MEDS ORDERED: OXAZEpam 15mg capsule PO PRN (21:05)
[2020-02-12] MEDS ORDERED: ondansetron/PF 4mg/2ml inj IV PRN (21:05)
[2020-02-12] MEDS ORDERED: HYDROcodone/acetaminophen 5mg/325mg tablet PO PRN ×2 (21:05)
[2020-02-12] MEDS ORDERED: nitroGLYCERIN 0.4mg SUBLingual tab SL PRN (21:05)
[2020-02-12] MEDS ORDERED: HYDROcodone/acetaminophen 10/325mg tab PO PRN (21:05)
[2020-02-12] MEDS ORDERED: non-formulary drug (Sildenafil Citrate* (Viagra*) 1 TAB) PO SCH (21:05)
[2020-02-12] MEDS ORDERED: acetaminophen 325mg tablet PO PRN (21:05)
[2020-02-12 21:15] VITALS: BP 133/93
[2020-02-12] MEDS ORDERED: albuterol 2.5 MG/3 ML nebule NEB PRN (21:25)
[2020-02-12 21:30] VITALS: BP 151/133
--- NOTE | 2020-02-12 21:41 | NUR ---
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
--- NOTE | 2020-02-12 22:12 | NUR ---
called Dr Elizondo regarding increased BP, Dr Elizondo stated "dont worry about it, he can still D/C tonight."
--- NOTE | 2020-02-12 22:14 | NUR ---
Pt C/O of Left calf cramping, stated he wants to still leave tonight.
--- NOTE | 2020-02-12 23:08 | NUR ---
Pt D/C'd in stable condition, IV taken out, cath site CDI, no hematoma, no bruising in the back. Pt left via wheelchair via home in personal car.
[2020-02-13] MEDS ORDERED: gabapentin 300mg capsule PO SCH
[2020-02-13] MEDS ORDERED: lurasidone 20mg tablet PO SCH (08:00)
[2020-02-13] MEDS ORDERED: pantoprazole 40mg Tablet.DR PO SCH (08:00)
[2020-02-13] MEDS ORDERED: lisinopril 10 MG tablet PO SCH (08:00)
[2020-02-13] MEDS ORDERED: clopidogrel 75mg tablet PO SCH (08:00)
[2020-02-13] MEDS ORDERED: pregabalin 75mg capsule PO SCH (08:00)
[2020-02-13] MEDS ORDERED: aspirin 81mg tablet.DR PO SCH (08:00)
[2020-02-13] MEDS ORDERED: LIDOcaine 5% patch TP SCH (08:00)
[2020-02-13] MEDS ORDERED: atorvastatin 20mg tablet PO SCH (08:00)
[2020-02-13] MEDS ORDERED: buPROPion SR 150mg tablet PO SCH (08:00)
[2020-02-13] MEDS ORDERED: lamoTRIgine 100mg tablet PO SCH (21:00)
[2020-02-13] MEDS ORDERED: traZODone 50mg tablet PO SCH (21:00)
[2020-02-13] MEDS ORDERED: mirtazapine 15mg tablet PO SCH (21:00)
== END 2020-02-12 23:18 | disposition home or self-care (01) ==
LOC: SSTAY O 13:51 → MED 3N 20:40 → SSTAY O 23:18
PROVIDERS: ATTEND Internal Medicine Interventional Cardiology
DX: I70.213 Atherosclerosis of native arteries of extremities with intermittent claudication, bilateral legs (principal); T82.856A Stenosis of peripheral vascular stent, initial encounter; E78.5 Hyperlipidemia, unspecified; F17.200 Nicotine dependence, unspecified, uncomplicated; I25.10 Atherosclerotic heart disease of native coronary artery without angina pectoris; I65.23 Occlusion and stenosis of bilateral carotid arteries; I10 Essential (primary) hypertension; F41.9 Anxiety disorder, unspecified; Z98.890 Other specified postprocedural states; Z23 Encounter for immunization; Z79.899 Other long term (current) drug therapy; Z79.01 Long term (current) use of anticoagulants; Z79.82 Long term (current) use of aspirin; Z82.3 Family history of stroke; Y83.8 Other surgical procedures as the cause of abnormal reaction of the patient, or of later complication, without mention of misadventure at the time of the procedure; Y92.89 Other specified places as the place of occurrence of the external cause
CPT/HCPCS: 37221; 37223; 37226; 75716; 90471; 93005; 99152; 99153; C1725; C1760; C1769; C1876; C1894; J1644; J2001; J2250; J3010; J7030; Q2039; Q9967; A4620; A6258; G0378

== ENCOUNTER 2020-07-02 12:25 | Day surgery (SDC) | payer MEDICAID ==
[~2020-07-02] VITALS: Ht 190.5 cm; Wt 88.3 kg
[2020-07-02] VITALS (8 sets, daily range): BP systolic 98–121; BP diastolic 63–86
[~2020-07-02 12:25] MED LIST changes: -ALBU18HF2 INH; +ASPI-611 PO; -ASPI81TA52 PO; -ATOR-2 PO; +ATOR80TA13 PO; -BECL7.3A7 IH; +BUPR150T8 PO; +GABA300C PO; +HYDR-3965 PO; +LIDO5CRE18 TOP; +LISI20TA28 PO; -LISI40TA4 PO; +MIRT7.5T11 PO; +SILD50TA PO
[2020-07-02] MEDS ORDERED: LORazepam 0.5 MG tablet PO PRN (12:50)
[2020-07-02] MEDS ORDERED: normal saline 1,000 ML IV SCH (12:50)
[2020-07-02] MEDS ORDERED: diphenhydrAMINE 25mg capsule PO PRN (12:50)
[2020-07-02] MEDS ORDERED: MONT10TA21 PO (12:55)
[2020-07-02] MEDS ORDERED: midazolam 1 mg/ML 2ml injection ONE (13:49)
[2020-07-02] MEDS ORDERED: LIDOcaine 1% (10mg/ml)w/preservative injection 20ml MDV ONE (13:49)
[2020-07-02] MEDS ORDERED: heparin 1,000unit/ml 10ml vial 10 ML ONE (13:49)
[2020-07-02] MEDS ORDERED: iohexol 350MG/ML 100ml bottle IV ONE (13:49)
[2020-07-02] MEDS ORDERED: fentaNYL/PF 50MCG/1 ML 2ML syringe ONE (13:49)
[2020-07-02] MEDS ORDERED: verapamil 2.5 mg/ml inj IV ONE (14:12)
[2020-07-02] MEDS ORDERED: nitroGLYCERIN-Tridil 50MG/D5W 250 ML IV ONE (14:12)
[2020-07-02] MEDS ORDERED: proCHLORperazine 10 MG/2 ml inj IV PRN (15:05)
[2020-07-02] MEDS ORDERED: HYDROcodone/acetaminophen 10/325mg tab PO PRN (15:05)
[2020-07-02] MEDS ORDERED: ondansetron/PF 4mg/2ml inj IV PRN (15:05)
[2020-07-02] MEDS ORDERED: HYDROcodone/acetaminophen 5mg/325mg tablet PO PRN (15:05)
[2020-07-02] MEDS ORDERED: OXAZEpam 15mg capsule PO PRN (15:05)
[2020-07-02] MEDS ORDERED: FLU VACC QS2020-21(6MOS UP)/PF 60 MCG/0.5 ML SYRINGE IMVAC ONE (17:30)
== END 2020-07-02 17:50 | disposition home or self-care (01) ==
LOC: SSTAY O 12:25
PROVIDERS: ATTEND Internal Medicine Interventional Cardiology
DX: I70.218 Atherosclerosis of native arteries of extremities with intermittent claudication, other extremity (principal); J44.9 Chronic obstructive pulmonary disease, unspecified; I10 Essential (primary) hypertension; I25.10 Atherosclerotic heart disease of native coronary artery without angina pectoris; E78.5 Hyperlipidemia, unspecified; F41.9 Anxiety disorder, unspecified; Z79.899 Other long term (current) drug therapy; Z79.82 Long term (current) use of aspirin; Z85.01 Personal history of malignant neoplasm of esophagus; Z82.3 Family history of stroke; Z95.820 Peripheral vascular angioplasty status with implants and grafts
CPT/HCPCS: 36216; 75756; 93005; 99152; C1769; C1894; J1644; J2001; J2250; J3010; J7030; Q0163; Q9967; 36215; A4620; J3490

== ENCOUNTER 2020-08-20 11:11 | Day surgery (SDC) | payer MEDICAID ==
[~2020-08-20] VITALS: Ht 190.5 cm; Wt 90.1 kg
[2020-08-20] VITALS (8 sets, daily range): BP systolic 102–132; BP diastolic 70–89
[~2020-08-20 11:11] MED LIST changes: -GABA300C PO; +MONT10TA21 PO; -SILD50TA PO
[2020-08-20] MEDS ORDERED: LORazepam 0.5 MG tablet PO PRN (11:40)
[2020-08-20] MEDS ORDERED: diphenhydrAMINE 25mg capsule PO PRN (11:40)
[2020-08-20] MEDS ORDERED: normal saline 1,000 ML IV SCH (11:40)
[2020-08-20] MEDS ORDERED: FLO110IN INH (12:04)
[2020-08-20] MEDS ORDERED: SILD100T PO (12:05)
[2020-08-20] MEDS ORDERED: fentaNYL/PF 50MCG/1 ML 2ML syringe ONE (13:32)
[2020-08-20] MEDS ORDERED: LIDOcaine 1% (10mg/ml)w/preservative injection 20ml MDV ONE (13:32)
[2020-08-20] MEDS ORDERED: heparin 1,000unit/ml 10ml vial 10 ML ONE (13:32)
[2020-08-20] MEDS ORDERED: midazolam 1 mg/ML 2ml injection ONE (13:32)
[2020-08-20] MEDS ORDERED: iohexol 350MG/ML 100ml bottle IV ONE ×3 (13:33→14:17)
[2020-08-20] MEDS ORDERED: HYDROcodone/acetaminophen 5mg/325mg tablet PO PRN (15:25)
[2020-08-20] MEDS ORDERED: ondansetron/PF 4mg/2ml inj IV PRN (15:25)
[2020-08-20] MEDS ORDERED: OXAZEpam 15mg capsule PO PRN (15:25)
[2020-08-20] MEDS ORDERED: HYDROcodone/acetaminophen 10/325mg tab PO PRN (15:25)
[2020-08-20] MEDS ORDERED: proCHLORperazine 10 MG/2 ml inj IV PRN (15:25)
== END 2020-08-20 17:00 | disposition home or self-care (01) ==
LOC: SSTAY O 11:11
PROVIDERS: ATTEND Internal Medicine Interventional Cardiology
DX: I77.1 Stricture of artery (principal); I10 Essential (primary) hypertension; E78.5 Hyperlipidemia, unspecified; F41.9 Anxiety disorder, unspecified; I65.23 Occlusion and stenosis of bilateral carotid arteries; I70.213 Atherosclerosis of native arteries of extremities with intermittent claudication, bilateral legs; F17.200 Nicotine dependence, unspecified, uncomplicated; J44.9 Chronic obstructive pulmonary disease, unspecified; I25.10 Atherosclerotic heart disease of native coronary artery without angina pectoris; Z85.01 Personal history of malignant neoplasm of esophagus; Z79.899 Other long term (current) drug therapy; Z79.82 Long term (current) use of aspirin; Z79.01 Long term (current) use of anticoagulants; Z82.3 Family history of stroke
CPT/HCPCS: 36215; 75625; 75710; 93005; 99152; 99153; C1751; C1760; C1769; C1887; J1644; J2001; J2250; J3010; Q9967; 36200; A4620; A6258

== ENCOUNTER 2020-12-10 11:52 | Day surgery (SDC) | payer MEDICAID ==
[2020-12-09 14:55] LABS: PARTIAL THROMBOPLASTIN TIME 26 SECONDS (22-32)
[~2020-12-10] VITALS: Ht 190.5 cm; Wt 91.8 kg
[~2020-12-10 11:52] MED LIST changes: +FLO110IN INH; +SILD100T PO
[2020-12-10] MEDS ORDERED: diphenhydrAMINE 25mg capsule PO PRN (12:10)
[2020-12-10] MEDS ORDERED: normal saline 1,000 ML IV SCH (12:10)
[2020-12-10] MEDS ORDERED: LORazepam 0.5 MG tablet PO PRN (12:10)
[2020-12-10 12:30] VITALS: BP 128/87
[2020-12-10 13:17] LABS: ALBUMIN 3.7 G/DL (3.4-5.0); ANION GAP 10 (8-16); BLOOD UREA NITROGEN 10 MG/DL (7-18); CALCIUM 8.7 MG/DL (8.5-10.1); CHLORIDE 103 MMOL/L (99-107); CREATININE 1.11 MG/DL (0.60-1.10); GLUCOSE 114 MG/DL (70-104); POTASSIUM 4.5 MMOL/L (3.5-5.1); SODIUM 137 MMOL/L (135-145); TOTAL CARBON DIOXIDE 24.5 MMOL/L (24-32); eGFR 68 ML/MIN
[2020-12-10 13:26] LABS: BASOPHILS % (AUTO) 0.6 % (0-1); EOSINOPHILS # (AUTO) 0.2 X10'3 (0-0.9); EOSINOPHILS % (AUTO) 2.7 % (0-6); HEMATOCRIT 47.5 % (42.0-52.0); HEMOGLOBIN 16.1 g/dl (14.0-17.9); LYMPHOCYTES # (AUTO) 1.7 X10'3 (1.1-4.8); LYMPHOCYTES % (AUTO) 20.6 % (21-51); MEAN CORPUSCULAR HEMOGLOBIN 35.9 PG (27.0-31.0); MEAN CORPUSCULAR HGB CONC 33.9 g/dL (33.0-36.5); MEAN CORPUSCULAR VOLUME 105.9 FL (78-98); MEAN PLATELET VOLUME 7.3 FL (7.4-10.4); MONOCYTES # (AUTO) 0.6 X10'3 (0-0.9); MONOCYTES % (AUTO) 6.9 % (2-12); NEUTROPHILS # (AUTO) 5.9 X10'3 (1.8-7.7); NEUTROPHILS % (AUTO) 69.2 % (42-75); PLATELET COUNT 252 X10'3 (140-440); RED BLOOD COUNT 4.49 X10'6 (4.70-6.10); RED CELL DISTRIBUTION WIDTH 14.4 % (11.5-14.5); WHITE BLOOD COUNT 8.5 X10'3 (4.5-11.0)
[2020-12-10] MEDS ORDERED: fentaNYL/PF 50MCG/1 ML 2ML syringe ONE ×2 (15:03→15:51)
[2020-12-10] MEDS ORDERED: midazolam 1 mg/ML 2ml injection ONE ×2 (15:03→15:51)
[2020-12-10] MEDS ORDERED: LIDOcaine 1% (10mg/ml)w/preservative injection 20ml MDV ONE (15:03)
[2020-12-10] MEDS ORDERED: iohexol 350MG/ML 100ml bottle IV ONE (15:04)
[2020-12-10] MEDS ORDERED: heparin 1,000 UNITS/NS 500ml 500 ML ONE (15:04)
[2020-12-10] MEDS ORDERED: heparin 1,000unit/ml 10ml vial 10 ML ONE (15:25)
[2020-12-10] MEDS ORDERED: clopidogrel 300mg tablet ONE (16:29)
[2020-12-10 16:52] VITALS: BP 136/76
[2020-12-10 17:00] VITALS: BP 146/77
[2020-12-10 17:31] VITALS: BP 162/84
[2020-12-10 17:45] VITALS: BP 172/79
[2020-12-10 18:15] VITALS: BP 149/78
== END 2020-12-10 18:55 | disposition home or self-care (01) ==
LOC: SSTAY O 11:52
PROVIDERS: ATTEND Internal Medicine Interventional Cardiology
DX: I70.213 Atherosclerosis of native arteries of extremities with intermittent claudication, bilateral legs (principal); I25.10 Atherosclerotic heart disease of native coronary artery without angina pectoris; I10 Essential (primary) hypertension; E78.5 Hyperlipidemia, unspecified; F41.9 Anxiety disorder, unspecified; F17.200 Nicotine dependence, unspecified, uncomplicated; Z85.01 Personal history of malignant neoplasm of esophagus; Z79.899 Other long term (current) drug therapy; Z79.01 Long term (current) use of anticoagulants; Z82.3 Family history of stroke
CPT/HCPCS: 36415; 37226; 75630; 80048; 85025; 85610; 85730; 93005; 99152; 99153; C1725; C1760; C1769; C1876; C1894; J1644; J2001; J2250; J3010; J7030; Q0163; Q9967; 75716; A4620; A6258

== ENCOUNTER 2022-07-31 12:38 | Outpatient (CLI) | payer MEDICAID ==
[~2022-07-31 12:38] MED LIST changes: -LURA20TA PO; +LURA20TA8 PO; +MONT-48 PO; -MONT10TA21 PO
== END 2022-07-31 23:59 | disposition home or self-care (01) ==
LOC: VAS 12:38
PROVIDERS: ATTEND Surgery
DX: I73.9 Peripheral vascular disease, unspecified (principal)
CPT/HCPCS: 93970

== ENCOUNTER 2022-09-28 09:14 | Inpatient (IN) | payer MEDICAID ==
[2022-09-25 10:37] LABS: MEAN CORPUSCULAR HEMOGLOBIN 35.9 PG (27.0-31.0); MEAN CORPUSCULAR HGB CONC 33.7 g/dL (33.0-36.5); MEAN CORPUSCULAR VOLUME 106.7 FL (78-98); PRE OP HEMOGLOBIN 17.2 g/dL (14.0-17.9); RED BLOOD COUNT 4.78 X10'6 (4.70-6.10)
[2022-09-25 10:38] LABS: BASOPHILS # (AUTO) 0.1 X10'3 (0-0.2); BASOPHILS % (AUTO) 0.6 % (0-1); EOSINOPHILS # (AUTO) 0.8 X10'3 (0-0.9); EOSINOPHILS % (AUTO) 8.2 % (0-6); LYMPHOCYTES # (AUTO) 2.2 X10'3 (1.1-4.8); LYMPHOCYTES % (AUTO) 21.7 % (21-51); MEAN PLATELET VOLUME 7.2 FL (7.4-10.4); MONOCYTES # (AUTO) 0.8 X10'3 (0-0.9); MONOCYTES % (AUTO) 7.6 % (2-12); NEUTROPHILS # (AUTO) 6.3 X10'3 (1.8-7.7); NEUTROPHILS % (AUTO) 61.9 % (42-75); PRE OP PLATELET COUNT 255 X10'3 (140-440)
[2022-09-25 10:53] LABS: ALBUMIN 3.7 G/DL (3.4-5.0); ALKALINE PHOSPHATASE 191 IU/L (46-116); BLOOD UREA NITROGEN 13 MG/DL (7-18); BUN/CREATININE RATIO 12.3 (10.0-20.0); CALCIUM 8.8 MG/DL (8.5-10.1); CHLORIDE 104 MMOL/L (99-107); CREATININE 1.06 MG/DL (0.60-1.10); PRE OP ANION GAP 11 (8-16); PRE OP AST 42 U/L (10-37); PRE OP BILIRUB, TOTAL 0.5 MG/DL (0.0-1.0); PRE OP GLUCOSE 135 MG/DL (70-104); PRE OP POTASSIUM 3.8 MMOL/L (3.4-5.1); PRE OP SODIUM 141 MMOL/L (135-145); TOTAL CARBON DIOXIDE 25.8 MMOL/L (24-32); TOTAL PROTEIN 7.4 G/DL (6.4-8.2); eGFR 71 ML/MIN
[2022-09-25 11:09] LABS: CLARITY,URINE CLEAR (Clear); COLOR,URINE YELLOW (Yellow); GLUCOSE, URINE NEGATIVE (Neg); KETONES,URINE NEGATIVE (Neg); LEUKOCYTE ESTERASE ,URINE NEGATIVE (Neg); NITRITES, URINE NEGATIVE (Neg); OCCULT BLOOD,URINE NEGATIVE (Neg); PH,URINE 5.5 (4.8-8.0); PROTEIN,URINE NEGATIVE (Neg); UROBILINOGEN,URINE 0.2 E.U/dL (0.2-1.0)
[2022-09-25 11:10] LABS: UA COLLECTION TYPE VOIDED
[2022-09-25 11:16] LABS: PRE OP ALT 80 U/L (30-65); PRE OP INR 0.9 INR
[2022-09-28] VITALS (16 sets, daily range): BP systolic 115–172; BP diastolic 63–85
[~2022-09-28] VITALS: Ht 190.5 cm; Wt 94.8 kg
[~2022-09-28 09:14] MED LIST changes: +ALBU18HF2 IH; -ALBU2.5V12 NEB; +BUPR-317 PO; -BUPR150T8 PO; +BUSP15TA3 PO; +EZET10TA6 PO; +IPRA3AMP31 NEB; +LIDO35.4 TOP; -LIDO5CRE18 TOP; +LIDOcaine 1% (10mg/ml) 2ml vial ONE; +LORA10TA7 PO; -LURA20TA8 PO; -LYR25C PO; -MIRT7.5T11 PO; -MONT-48 PO; +PREG150C46 PO; +PROC10TA10 PO; -SILD100T PO; +TIOT4MIS5 PO; +ceFAZolin inj. 3,000 MG in normal saline 100ml IV soln 100 ML IV ONE; +famotidine 20mg tablet PO ONE; +ringers solution, lacted 1,000 ML IV SCH
[2022-09-28] MEDS ORDERED: dexamethasone sod phosphate 10mg/ml inj ONE (13:47)
[2022-09-28] MEDS ORDERED: desflurane 240ml liquid inh. IH ONE (13:47)
[2022-09-28] MEDS ORDERED: protamine sulf. 10mg/ml inj. IV ONE (13:47)
[2022-09-28] MEDS ORDERED: ePHEDrine 50MG/ML INJ. ONE (13:47)
[2022-09-28] MEDS ORDERED: MIDAZolam 1 MG/ML 5ML VIAL ONE (13:59)
[2022-09-28] MEDS ORDERED: fentaNYL /PF 50mcg/ml 5ml ampule ONE (13:59)
[2022-09-28] MEDS ORDERED: heparin 10,000 units/1 ML INJ ONE (14:45)
[2022-09-28] MEDS ORDERED: propofol inj 20 ML IV ONE (15:05)
[2022-09-28] MEDS ORDERED: LIDOcaine 2% (20mg/ml) 5ml vial ONE (15:06)
[2022-09-28] MEDS ORDERED: rocuronium 10mg/ml inj IV ONE ×3 (15:06→17:09)
[2022-09-28] MEDS ORDERED: phenylephrine 10mg/ml inj. -priapism dosing ONE (15:06)
[2022-09-28] MEDS ORDERED: morphine 10mg/ml inj. ONE ×2 (16:51→19:29)
[2022-09-28] MEDS ORDERED: heparin 1,000unit/ml 10ml vial 10 ML ONE (17:09)
[2022-09-28] MEDS ORDERED: ceFAZolin 1000mg inj ONE (18:08)
[2022-09-28] MEDS ORDERED: protamine sulfate 10mg/ml inj. ONE (18:44)
[2022-09-28] MEDS ORDERED: ondansetron/PF 4mg/2ml inj IV PRN ×2 (19:00→20:20)
[2022-09-28] MEDS ORDERED: acetaminophen 1,000mg/100ml IV 100 ML IV PRN ×2 (19:00→20:15)
[2022-09-28] MEDS ORDERED: hydrALAZINE 20mg/ml inj. IV PRN ×2 (19:00→20:15)
[2022-09-28] MEDS ORDERED: labetalol 20mg/4ml (5mg/ml) syringe IV PRN ×2 (19:00→20:15)
[2022-09-28] MEDS ORDERED: proCHLORperazine 10 MG/2 ml inj IV PRN ×2 (19:00→20:20)
[2022-09-28] MEDS ORDERED: morphine 4 MG/ML inj SYRINge IV PRN ×2 (19:00→20:20)
[2022-09-28] MEDS ORDERED: meperidine/PF 25mg/ml syringe IV PRN ×6 (19:00→20:20)
[2022-09-28] MEDS ORDERED: morphine 2 MG/ML inj. syringe IV PRN ×2 (19:00→20:20)
[2022-09-28] MEDS ORDERED: ringers solution, lacted 1,000 ML IV SCH ×2 (19:00→20:25)
[2022-09-28] MEDS ORDERED: ondansetron/PF 4mg/2ml inj ONE (19:00)
[2022-09-28 19:10] LABS: APTT 29 SECONDS (22-32)
[2022-09-28] MEDS ORDERED: sugammadex 200mg/2ml injection IV ONE (19:29)
--- NOTE | 2022-09-28 19:48 | NUR ---
Received from OR viaICU BED TO RR 4 , accompanied by Anesthesiologist DR TORRES and report given by Anesthesiolgist. PT PRESENTS WITH 20G RIGHT HAND, ART LINE RIGHT WRIST, BI LATERAL DORSALAS PEDUS PALPATED, DRESSIGN ON LEFT AND RIGHT LEGS CDI, BROWN CATHETER 60 NLS OUTPUT FROM OR, NEURO CHECK INTACT, SPO2 99% 10L MASK, LR RUNNING AT 100MLS/HR. VSS. Addendum: 09/28/22 at 1956 by Emerita Velez RN, RN Amended: Links added.
[2022-09-28] MEDS ORDERED: HYDROmorphone inj. 0.5 MG/0.5 ML DISP.SYRIN IV PRN (20:40)
[2022-09-28] MEDS ORDERED: naloxone 0.4 mg/ml inj IV PRN (20:45)
[2022-09-28] MEDS ORDERED: HYDROcodone/acetaminophen 10/325mg tab PO PRN (20:45)
--- NOTE | 2022-09-28 20:48 | NUR ---
Report called to receiving nurse NATE MCCORMACK. Transferred via ICU BED TO ROOM 2043. BED IN LOW LOCKED POSTION WITH CALL LIGHT IN REACH, PT HOOKED UP TO ALL MONITORS, CHART TAKEN TO NURSES STATION. TWO PT BELONGINGS BAGS WITH UPPER DENTURE AND READING GLASSES TAKEN TO PT ROOM 2043. Special Issues communicated to receiving nurse. Addendum: 09/28/22 at 2100 by Emerita Velez RN RN Amended: Links added.
[2022-09-28 21:39] LABS: BASOPHILS % (AUTO) 0.2 % (0-1); EOSINOPHILS % (AUTO) 0.1 % (0-6); HEMATOCRIT 41.6 % (42.0-52.0); HEMOGLOBIN 14.2 g/dl (14.0-17.9); LYMPHOCYTES # (AUTO) 0.6 X10'3 (1.1-4.8); LYMPHOCYTES % (AUTO) 4.9 % (21-51); MEAN CORPUSCULAR HEMOGLOBIN 36.1 PG (27.0-31.0); MEAN PLATELET VOLUME 7.3 FL (7.4-10.4); MONOCYTES # (AUTO) 0.2 X10'3 (0-0.9); MONOCYTES % (AUTO) 1.4 % (2-12); NEUTROPHILS # (AUTO) 10.8 X10'3 (1.8-7.7); NEUTROPHILS % (AUTO) 93.4 % (42-75); PLATELET COUNT 215 X10'3 (140-440); RED BLOOD COUNT 3.92 X10'6 (4.70-6.10); RED CELL DISTRIBUTION WIDTH 13.7 % (11.5-14.5); WHITE BLOOD COUNT 11.6 X10'3 (4.5-11.0)
[2022-09-28 21:55] LABS: GLUCOSE 180 MG/DL (70-104); POTASSIUM 4.3 MMOL/L (3.5-5.1); SODIUM 138 MMOL/L (135-145)
[2022-09-28 21:56] LABS: ALANINE AMINOTRANSFERASE 48 U/L (12-78); ALKALINE PHOSPHATASE 142 IU/L (46-116); ANION GAP 11 (8-16); ASPARTATE AMINO TRANSFERASE 27 U/L (10-37); BILIRUBIN,TOTAL 0.6 MG/DL (0.1-1.0); BLOOD UREA NITROGEN 8 MG/DL (7-18); BUN/CREATININE RATIO 7.8 (10.0-20.0); CALCIUM 8.2 MG/DL (8.5-10.1); CHLORIDE 105 MMOL/L (99-107); CREATININE 1.02 MG/DL (0.60-1.10); MAGNESIUM 1.7 MG/DL (1.5-2.4); PHOSPHORUS 3.8 MG/DL (2.3-4.5); TOTAL CARBON DIOXIDE 21.8 MMOL/L (24-32); TOTAL PROTEIN 6.1 G/DL (6.4-8.2); eGFR 74 ML/MIN
[2022-09-29] VITALS (18 sets, daily range): BP systolic 92–133; BP diastolic 56–82
[2022-09-29] MEDS ORDERED: proCHLORperazine 10mg tablet PO PRN (00:20)
[2022-09-29] MEDS ORDERED: HYDROcodone/acetaminophen 5mg/325mg tablet PO PRN (00:20)
[2022-09-29] MEDS: ceFAZolin/D5W- 1GM premix 50 ML IV SCH ×2 (00:21→07:11)
[2022-09-29] MEDS: HYDROcodone/acetaminophen 10/325mg tab PO PRN ×5 (00:22→20:45)
[2022-09-29] MEDS: potassium CL 20mEq in D5-1/2NS 1,000 ML IV SCH ×2 (00:22→04:45)
[2022-09-29] MEDS: traZODone 50mg tablet PO SCH ×2 (00:33→20:44)
[2022-09-29 02:33] LABS: BASOPHILS % (AUTO) 0.1 % (0-1); EOSINOPHILS % (AUTO) 0 % (0-6); HEMATOCRIT 38.3 % (42.0-52.0); HEMOGLOBIN 12.7 g/dl (14.0-17.9); LYMPHOCYTES # (AUTO) 0.4 X10'3 (1.1-4.8); LYMPHOCYTES % (AUTO) 3.2 % (21-51); MEAN CORPUSCULAR HEMOGLOBIN 35.5 PG (27.0-31.0); MEAN CORPUSCULAR HGB CONC 33.2 g/dL (33.0-36.5); MEAN PLATELET VOLUME 7.5 FL (7.4-10.4); MONOCYTES # (AUTO) 0.6 X10'3 (0-0.9); NEUTROPHILS # (AUTO) 12.9 X10'3 (1.8-7.7); NEUTROPHILS % (AUTO) 92.7 % (42-75); PLATELET COUNT 221 X10'3 (140-440); RED BLOOD COUNT 3.57 X10'6 (4.70-6.10); RED CELL DISTRIBUTION WIDTH 13.9 % (11.5-14.5); WHITE BLOOD COUNT 13.9 X10'3 (4.5-11.0)
[2022-09-29 02:38] LABS: ALBUMIN 2.7 G/DL (3.4-5.0); ANION GAP 13 (8-16); BLOOD UREA NITROGEN 8 MG/DL (7-18); BUN/CREATININE RATIO 6.1 (10.0-20.0); CALCIUM 8.1 MG/DL (8.5-10.1); CHLORIDE 102 MMOL/L (99-107); CREATININE 1.32 MG/DL (0.60-1.10); GLUCOSE 261 MG/DL (70-104); POTASSIUM 4.5 MMOL/L (3.5-5.1); SODIUM 135 MMOL/L (135-145); TOTAL CARBON DIOXIDE 20.3 MMOL/L (24-32); eGFR 55 ML/MIN
--- NOTE | 2022-09-29 06:18 | NUR ---
Problems reprioritized. Patient report given, questions answered & plan of care reviewed with Yasmeen MCCORMACK.
[2022-09-29] MEDS: ezetimibe 10mg tablet PO SCH (07:02)
[2022-09-29] MEDS: pantoprazole 40mg Tablet.DR PO SCH (07:03)
[2022-09-29] MEDS: lisinopril 20mg tablet PO SCH (07:03)
[2022-09-29] MEDS: pregabalin 75mg capsule PO SCH ×2 (07:03→20:44)
[2022-09-29] MEDS: aspirin 81mg, enteric-coated 1 TAB TABLET.DR PO SCH ×2 (07:04→10:45)
[2022-09-29] MEDS: atorvastatin 20mg tablet PO SCH (07:04)
[2022-09-29] MEDS: buproprion 150mg XL (24-hour) tablet PO SCH (07:07)
[2022-09-29] MEDS: loratadine 10mg tablet PO SCH (07:09)
[2022-09-29] MEDS: busPIRone 15mg tablet PO SCH ×2 (07:10→20:45)
[2022-09-29] MEDS: ipratropium/albuterol 3ml nebule NEB SCH ×2 (07:43→14:14)
[2022-09-29] MEDS: budesonide 0.5mg/2ml UD nebule IH SCH ×2 (07:44→19:55)
[2022-09-29] MEDS ORDERED: ipratropium 0.5 MG/2.5ML nebule NEB PRN (08:00)
[2022-09-29] MEDS ORDERED: clopidogrel 75mg tablet PO SCH (08:00)
[2022-09-29] MEDS: LIDOCAINE 5% OINTMENT 35GM TP SCH ×2 (08:00→20:00)
--- NOTE | 2022-09-29 09:30 | NUR ---
RN left voicemail for Dr. Jimenez re. Plavix and ASA resuming this morning and if Roberto can be dc'd.
[2022-09-29] MEDS: clopidogrel 75mg tablet PO SCH (10:45)
--- NOTE | 2022-09-29 13:08 | NUR ---
Report called to Allison TINSLEY on Tele Floor. Pt. to go to room 9858E.
--- NOTE | 2022-09-29 13:12 | NUR ---
Patient in room ICU 2043. I have received report from ICU nurse Yasmeen MCCORMACK and had the opportunity to ask questions and assume patient care.
--- NOTE | 2022-09-29 13:23 | NUR ---
Patient arrived to unit via hospital bed. No complaints of pain or discomfort noted at this time. Call light is in reach and BLL.
--- NOTE | 2022-09-29 13:37 | NUR ---
Pt. transferred to 3026 A via bed in stable condition. silver service waiter aware of pt's arrival. Pt. given call light. Water pitcher filled and provided. All belongings sent with pt.
--- NOTE | 2022-09-29 15:50 | NUR ---
Patient's dressings began to come off reinforced per surgeon's request for dressing to remain in place until tomorrow.
--- NOTE | 2022-09-29 18:09 | NUR ---
Problems reprioritized. Patient report given, questions answered & plan of care reviewed with Henrietta MCCORMACK.
--- NOTE | 2022-09-29 18:25 | NUR ---
Received report from primary care nurse Rosana TINSLEY. Assumed patient care. Patient is awake and alert on room air. In no apparent distress visiting with his . Call light and items of frequent use within reach. will continue to monitor for changes.
[2022-09-29] MEDS: lamoTRIgine 100mg tablet PO SCH (20:45)
[2022-09-30 02:00] VITALS: BP 120/87
[2022-09-30] MEDS: HYDROcodone/acetaminophen 10/325mg tab PO PRN ×4 (02:24→16:24)
--- NOTE | 2022-09-30 06:18 | NUR ---
Reported off to Rosana TAX COMMISSIONER. Patient is awake and alert watching television. In no apparent distress. Call light and items of frequent use within reach.
--- NOTE | 2022-09-30 06:30 | NUR ---
Patient in room PCU 3026. I have received report from Henrietta MCCORMACK and had the opportunity to ask questions and assume patient care.
[2022-09-30 06:58] LABS: BASOPHILS % (AUTO) 0.3 % (0-1); EOSINOPHILS % (AUTO) 0.5 % (0-6); HEMOGLOBIN 12.2 g/dl (14.0-17.9); LYMPHOCYTES % (AUTO) 18.9 % (21-51); MEAN CORPUSCULAR HEMOGLOBIN 37.7 PG (27.0-31.0); MEAN CORPUSCULAR HGB CONC 34.8 g/dL (33.0-36.5); MEAN CORPUSCULAR VOLUME 108.4 FL (78-98); MEAN PLATELET VOLUME 7.6 FL (7.4-10.4); MONOCYTES % (AUTO) 9.4 % (2-12); NEUTROPHILS # (AUTO) 7.6 X10'3 (1.8-7.7); NEUTROPHILS % (AUTO) 70.9 % (42-75); PLATELET COUNT 226 X10'3 (140-440); RED BLOOD COUNT 3.23 X10'6 (4.70-6.10); RED CELL DISTRIBUTION WIDTH 14.4 % (11.5-14.5); WHITE BLOOD COUNT 10.7 X10'3 (4.5-11.0)
[2022-09-30 07:00] VITALS: BP 97/59
[2022-09-30 07:00] LABS: ALBUMIN 2.7 G/DL (3.4-5.0); ANION GAP 9 (8-16); BLOOD UREA NITROGEN 12 MG/DL (7-18); BUN/CREATININE RATIO 10.6 (10.0-20.0); CALCIUM 8.7 MG/DL (8.5-10.1); CHLORIDE 102 MMOL/L (99-107); CREATININE 1.13 MG/DL (0.60-1.10); GLUCOSE 164 MG/DL (70-104); POTASSIUM 4.4 MMOL/L (3.5-5.1); SODIUM 136 MMOL/L (135-145); TOTAL CARBON DIOXIDE 25.5 MMOL/L (24-32); eGFR 66 ML/MIN
[2022-09-30] MEDS: budesonide 0.5mg/2ml UD nebule IH SCH ×2 (07:37→19:39)
[2022-09-30] MEDS: ipratropium/albuterol 3ml nebule NEB SCH ×3 (07:37→19:40)
[2022-09-30] MEDS: clopidogrel 75mg tablet PO SCH (07:58)
[2022-09-30] MEDS: pregabalin 75mg capsule PO SCH ×2 (07:58→19:18)
[2022-09-30] MEDS: ezetimibe 10mg tablet PO SCH (07:58)
[2022-09-30] MEDS: buproprion 150mg XL (24-hour) tablet PO SCH (07:58)
[2022-09-30] MEDS: loratadine 10mg tablet PO SCH (07:59)
[2022-09-30] MEDS: aspirin 81mg, enteric-coated 1 TAB TABLET.DR PO SCH (07:59)
[2022-09-30] MEDS: atorvastatin 20mg tablet PO SCH (07:59)
[2022-09-30] MEDS: busPIRone 15mg tablet PO SCH ×2 (07:59→19:19)
[2022-09-30] MEDS: pantoprazole 40mg Tablet.DR PO SCH (07:59)
[2022-09-30] MEDS: lisinopril 20mg tablet PO SCH (08:00)
[2022-09-30] MEDS: LIDOCAINE 5% OINTMENT 35GM TP SCH ×2 (08:00→19:27)
[2022-09-30 11:30] VITALS: BP 97/60
[2022-09-30 15:00] VITALS: BP 104/69
--- NOTE | 2022-09-30 17:45 | NUR ---
Bandages changed per Dr Padron's order. Incisions shows no s/s of infection at this time.
[2022-09-30 18:00] VITALS: BP 123/71
--- NOTE | 2022-09-30 18:30 | NUR ---
Problems reprioritized. Patient report given, questions answered & plan of care reviewed with Deanne RN.
--- NOTE | 2022-09-30 18:35 | NUR ---
Patient in room PCU 3026. I have received report from REFUGIO MCCORMACK and had the opportunity to ask questions and assume patient care.
[2022-09-30] MEDS: buPROPion SR 150mg tablet PO SCH (19:18)
[2022-09-30] MEDS: traZODone 50mg tablet PO SCH (21:08)
[2022-09-30] MEDS: lamoTRIgine 100mg tablet PO SCH (21:09)
[2022-09-30 22:00] VITALS: BP 123/72
[2022-10-01 02:00] VITALS: BP 133/75
--- NOTE | 2022-10-01 06:15 | NUR ---
Problems reprioritized. Patient report given, questions answered & plan of care reviewed with MANJINDER MCCORMACK.
--- NOTE | 2022-10-01 06:19 | NUR ---
Patient in room PCU 3026. I have received report from EASTON Cole and had the opportunity to ask questions and assume patient care.
[2022-10-01 07:41] VITALS: BP 116/75
[2022-10-01] MEDS: HYDROcodone/acetaminophen 10/325mg tab PO PRN ×3 (07:49→18:45)
[2022-10-01] MEDS: aspirin 81mg, enteric-coated 1 TAB TABLET.DR PO SCH (07:49)
[2022-10-01] MEDS: busPIRone 15mg tablet PO SCH ×2 (07:49→20:57)
[2022-10-01] MEDS: buPROPion SR 150mg tablet PO SCH ×2 (07:50→20:57)
[2022-10-01] MEDS: pantoprazole 40mg Tablet.DR PO SCH (07:50)
[2022-10-01] MEDS: ezetimibe 10mg tablet PO SCH (07:50)
[2022-10-01] MEDS: atorvastatin 20mg tablet PO SCH (07:50)
[2022-10-01] MEDS: loratadine 10mg tablet PO SCH (07:50)
[2022-10-01] MEDS: pregabalin 75mg capsule PO SCH ×2 (07:50→20:57)
[2022-10-01] MEDS: clopidogrel 75mg tablet PO SCH (07:50)
[2022-10-01] MEDS: lisinopril 20mg tablet PO SCH (07:50)
[2022-10-01] MEDS: LIDOCAINE 5% OINTMENT 35GM TP SCH ×2 (07:51→20:00)
[2022-10-01 07:52] LABS: BASOPHILS % (AUTO) 0.3 % (0-1); EOSINOPHILS # (AUTO) 0.1 X10'3 (0-0.9); EOSINOPHILS % (AUTO) 1.5 % (0-6); HEMATOCRIT 34.8 % (42.0-52.0); HEMOGLOBIN 11.8 g/dl (14.0-17.9); LYMPHOCYTES # (AUTO) 1.4 X10'3 (1.1-4.8); LYMPHOCYTES % (AUTO) 16.5 % (21-51); MEAN CORPUSCULAR HEMOGLOBIN 36.5 PG (27.0-31.0); MEAN CORPUSCULAR HGB CONC 33.9 g/dL (33.0-36.5); MEAN CORPUSCULAR VOLUME 107.6 FL (78-98); MEAN PLATELET VOLUME 7.3 FL (7.4-10.4); MONOCYTES % (AUTO) 12.2 % (2-12); NEUTROPHILS # (AUTO) 5.7 X10'3 (1.8-7.7); NEUTROPHILS % (AUTO) 69.5 % (42-75); PLATELET COUNT 243 X10'3 (140-440); RED BLOOD COUNT 3.23 X10'6 (4.70-6.10); RED CELL DISTRIBUTION WIDTH 14.1 % (11.5-14.5); WHITE BLOOD COUNT 8.2 X10'3 (4.5-11.0)
[2022-10-01 07:54] LABS: ALBUMIN 2.6 G/DL (3.4-5.0); ANION GAP 11 (8-16); BLOOD UREA NITROGEN 11 MG/DL (7-18); BUN/CREATININE RATIO 11.1 (10.0-20.0); CALCIUM 8.8 MG/DL (8.5-10.1); CHLORIDE 100 MMOL/L (99-107); CREATININE 0.99 MG/DL (0.60-1.10); GLUCOSE 176 MG/DL (70-104); POTASSIUM 4.1 MMOL/L (3.5-5.1); SODIUM 135 MMOL/L (135-145); TOTAL CARBON DIOXIDE 24.1 MMOL/L (24-32); eGFR 77 ML/MIN
[2022-10-01] MEDS: ipratropium/albuterol 3ml nebule NEB SCH ×3 (08:38→21:09)
[2022-10-01] MEDS: budesonide 0.5mg/2ml UD nebule IH SCH ×2 (08:38→21:09)
[2022-10-01 11:46] VITALS: BP 115/69
[2022-10-01 16:00] VITALS: BP 110/69
[2022-10-01 18:00] VITALS: BP 129/79
--- NOTE | 2022-10-01 18:19 | NUR ---
Problems reprioritized. Patient report given, questions answered & plan of care reviewed with EASTON Shrestha and EASTON Aaron.
[2022-10-01] MEDS: traZODone 50mg tablet PO SCH (20:57)
[2022-10-01] MEDS: lamoTRIgine 100mg tablet PO SCH (20:57)
[2022-10-01 22:00] VITALS: BP 120/68
[2022-10-02 02:00] VITALS: BP 118/76
[2022-10-02 06:18] LABS: BASOPHILS % (AUTO) 0.3 % (0-1); EOSINOPHILS # (AUTO) 0.4 X10'3 (0-0.9); EOSINOPHILS % (AUTO) 4.3 % (0-6); HEMATOCRIT 34.9 % (42.0-52.0); HEMOGLOBIN 11.8 g/dl (14.0-17.9); LYMPHOCYTES # (AUTO) 1.4 X10'3 (1.1-4.8); LYMPHOCYTES % (AUTO) 17.4 % (21-51); MEAN CORPUSCULAR HEMOGLOBIN 36.5 PG (27.0-31.0); MEAN CORPUSCULAR HGB CONC 33.8 g/dL (33.0-36.5); MEAN CORPUSCULAR VOLUME 107.9 FL (78-98); MEAN PLATELET VOLUME 7.2 FL (7.4-10.4); NEUTROPHILS # (AUTO) 5.5 X10'3 (1.8-7.7); PLATELET COUNT 282 X10'3 (140-440); RED BLOOD COUNT 3.23 X10'6 (4.70-6.10); RED CELL DISTRIBUTION WIDTH 14.3 % (11.5-14.5); WHITE BLOOD COUNT 8.3 X10'3 (4.5-11.0)
--- NOTE | 2022-10-02 06:19 | NUR ---
Problems reprioritized. Patient report given, questions answered & plan of care reviewed with Cherise MCCORMACK.
[2022-10-02 06:31] LABS: ALBUMIN 2.6 G/DL (3.4-5.0); ANION GAP 9 (8-16); BLOOD UREA NITROGEN 13 MG/DL (7-18); BUN/CREATININE RATIO 11.9 (10.0-20.0); CALCIUM 9.1 MG/DL (8.5-10.1); CHLORIDE 101 MMOL/L (99-107); CREATININE 1.09 MG/DL (0.60-1.10); GLUCOSE 157 MG/DL (70-104); POTASSIUM 4.1 MMOL/L (3.5-5.1); SODIUM 137 MMOL/L (135-145); TOTAL CARBON DIOXIDE 27.3 MMOL/L (24-32); eGFR 69 ML/MIN
--- NOTE | 2022-10-02 06:32 | NUR ---
Patient in room PCU 3026. I have received report from Scar RN and EASTON Shrestha and had the opportunity to ask questions and assume patient care.
[2022-10-02 06:49] VITALS: BP 115/71
[2022-10-02] MEDS: ezetimibe 10mg tablet PO SCH (07:04)
[2022-10-02] MEDS: atorvastatin 20mg tablet PO SCH (07:04)
[2022-10-02] MEDS: clopidogrel 75mg tablet PO SCH (07:04)
[2022-10-02] MEDS: buPROPion SR 150mg tablet PO SCH (07:04)
[2022-10-02] MEDS: busPIRone 15mg tablet PO SCH (07:05)
[2022-10-02] MEDS: loratadine 10mg tablet PO SCH (07:05)
[2022-10-02] MEDS: pantoprazole 40mg Tablet.DR PO SCH (07:05)
[2022-10-02] MEDS: lisinopril 20mg tablet PO SCH (07:05)
[2022-10-02] MEDS: pregabalin 75mg capsule PO SCH (07:05)
[2022-10-02] MEDS: aspirin 81mg, enteric-coated 1 TAB TABLET.DR PO SCH (07:06)
[2022-10-02] MEDS: LIDOCAINE 5% OINTMENT 35GM TP SCH (07:09)
[2022-10-02] MEDS: ipratropium/albuterol 3ml nebule NEB SCH (07:54)
[2022-10-02] MEDS: budesonide 0.5mg/2ml UD nebule IH SCH (07:54)
[2022-10-02] MEDS: HYDROcodone/acetaminophen 10/325mg tab PO PRN (08:57)
[2022-10-02 11:28] VITALS: BP 106/65
--- NOTE | 2022-10-02 12:35 | NUR ---
Report called to ALVINA Toscano at [facility]. All questions answered.
--- NOTE | 2022-10-02 13:40 | NUR ---
Patient dc't with all personal belongings to [facility] via [employer].
== END 2022-10-02 12:52 | DRG 181 ==
LOC: PAS IN 09:14 → ICU 2S 19:58 → PCU 3S 09-29 13:28
PROVIDERS: ADMIT Surgery; ATTEND Surgery
PROC: 041L09Q Bypass Left Femoral Artery to Lower Extremity Artery with Autologous Venous Tissue, Open Approach (ICD-10-PCS; 2022-09-28)
PROC: 04CL0ZZ Extirpation of Matter from Left Femoral Artery, Open Approach (ICD-10-PCS; 2022-09-28)
PROC: 06BP3ZZ Excision of Right Saphenous Vein, Percutaneous Approach (ICD-10-PCS; 2022-09-28)
PROC: 041L0JQ Bypass Left Femoral Artery to Lower Extremity Artery with Synthetic Substitute, Open Approach (ICD-10-PCS; principal; 2022-09-28 13:47)
DX: I70.212 Atherosclerosis of native arteries of extremities with intermittent claudication, left leg (principal); Z87.891 Personal history of nicotine dependence
CPT/HCPCS: 36415; 71046; 80048; 80053; 81003; 82948; 83735; 84100; 85025; 85610; 85730; 86885; 86900; 86901; 87081; 93005; 93306; 94640; 94760; 97116; 97161; 97530; A4615; A4618; A6213; A6253; A6258; A6260; A6402; A6446; A6449; A6455; A7000; C1758; C1768; G0378; J0131; J0690; J1100; J1170; J1644; J2250; J2274; J2370; J2405; J2704; J2720; J3010; J3480; J3490; J7030; J7040; J7120; Q0164

== ENCOUNTER 2022-12-29 07:59 | Outpatient (CLI) | payer MEDICAID ==
[~2022-12-29 07:59] MED LIST changes: -LIDOcaine 1% (10mg/ml) 2ml vial ONE; -PREG150C46 PO; +PREG150C47 PO; -PROC10TA10 PO; +PROC10TA97 PO; -ceFAZolin inj. 3,000 MG in normal saline 100ml IV soln 100 ML IV ONE; -famotidine 20mg tablet PO ONE; -ringers solution, lacted 1,000 ML IV SCH
== END 2022-12-29 23:59 | disposition home or self-care (01) ==
LOC: RT 07:59
PROVIDERS: ATTEND Family Medicine
DX: Z53.9 Procedure and treatment not carried out, unspecified reason (principal); J84.112 Idiopathic pulmonary fibrosis

== ENCOUNTER 2023-03-29 15:04 | Inpatient (IN) | payer MEDICAID ==
[~2023-03-29] VITALS: Ht 190.5 cm; Wt 102.7 kg
[2023-03-29] MEDS ORDERED: heparin 10,000 units/1 ML INJ IV ONE ×2 (16:35→16:55)
[2023-03-29] MEDS ORDERED: heparin 10,000 units/1 ML INJ IV PRN (16:35)
[2023-03-29] MEDS ORDERED: HYDROcodone/acetaminophen 5mg/325mg tablet PO PRN (16:50)
[2023-03-29] MEDS ORDERED: mag hydrox/Alum hydrox/simeth 30ml oral suspension PO PRN (16:50)
[2023-03-29] MEDS ORDERED: morphine 2 MG/ML inj. syringe IV PRN (16:50)
[2023-03-29] MEDS ORDERED: potassium Cl 20 mEq SR tablet PO PRN ×2 (16:50)
[2023-03-29] MEDS ORDERED: magnesium 4gm in 100ml NS 100 ML IV PRN (16:50)
[2023-03-29] MEDS ORDERED: magnesium hydroxide 30ml (MOM) UD suspension PO PRN (16:50)
[2023-03-29] MEDS ORDERED: ondansetron/PF 4mg/2ml inj IV PRN (16:50)
[2023-03-29] MEDS ORDERED: magnesium 2GM in 50ml NS 50 ML IV PRN (16:50)
[2023-03-29] MEDS ORDERED: potassium Cl 40MEQ/1/2NS 520ml 520 ML IV PRN (16:50)
[2023-03-29] MEDS ORDERED: magnesium Cl slow-release 64mg tablet PO PRN (16:50)
[2023-03-29 16:59] LABS: BASOPHILS # (AUTO) 0.1 X10'3 (0-0.2); BASOPHILS % (AUTO) 0.6 % (0-1); EOSINOPHILS # (AUTO) 0.2 X10'3 (0-0.9); HEMATOCRIT 46.2 % (42.0-52.0); HEMOGLOBIN 14.8 g/dl (14.0-17.9); LYMPHOCYTES # (AUTO) 1.2 X10'3 (1.1-4.8); LYMPHOCYTES % (AUTO) 13.8 % (21-51); MEAN CORPUSCULAR HEMOGLOBIN 30.7 PG (27.0-31.0); MEAN CORPUSCULAR HGB CONC 32.1 g/dL (33.0-36.5); MEAN CORPUSCULAR VOLUME 95.5 FL (78-98); MEAN PLATELET VOLUME 7.4 FL (7.4-10.4); MONOCYTES # (AUTO) 0.5 X10'3 (0-0.9); NEUTROPHILS # (AUTO) 6.9 X10'3 (1.8-7.7); NEUTROPHILS % (AUTO) 77.6 % (42-75); PLATELET COUNT 259 X10'3 (140-440); RED BLOOD COUNT 4.84 X10'6 (4.70-6.10); RED CELL DISTRIBUTION WIDTH 17.5 % (11.5-14.5); WHITE BLOOD COUNT 8.9 X10'3 (4.5-11.0)
[2023-03-29 17:12] LABS: APTT 26 SECONDS (22-32)
[2023-03-29 17:15] LABS: ALANINE AMINOTRANSFERASE 49 U/L (12-78); ALBUMIN 3.3 G/DL (3.4-5.0); ALBUMIN/GLOBULIN RATIO 0.8 (1.1-1.5); ALKALINE PHOSPHATASE 154 IU/L (46-116); ANION GAP 10 (8-16); ASPARTATE AMINO TRANSFERASE 30 U/L (10-37); BILIRUBIN,TOTAL 0.5 MG/DL (0.1-1.0); BLOOD UREA NITROGEN 10 MG/DL (7-18); BUN/CREATININE RATIO 8.3 (10.0-20.0); CALCIUM 9.2 MG/DL (8.5-10.1); CHLORIDE 103 MMOL/L (99-107); CREATININE 1.21 MG/DL (0.60-1.10); GLUCOSE 199 MG/DL (70-104); SODIUM 136 MMOL/L (135-145); TOTAL CARBON DIOXIDE 23.4 MMOL/L (24-32); TOTAL PROTEIN 7.3 G/DL (6.4-8.2); eCRCL 76 ML/MIN; eGFR 61 ML/MIN
[2023-03-29 17:20] LABS: INR 0.9 INR; POTASSIUM 4.3 MMOL/L (3.5-5.1)
[2023-03-29] MEDS: heparin 25,000 UNIT/250ml bag 250 ML IV PRN (17:25)
[2023-03-29 17:26] LABS: HEMOGLOBIN A1C 6.2 % (4.5-6.2)
[2023-03-29] MEDS: docusate sod 100mg capsule PO SCH (20:00)
[2023-03-29] MEDS: K and/or MAG REPLACEMENT MC SCH (20:12)
[2023-03-29 21:00] VITALS: BP 143/79; PULSE 75; RESP 16; TEMP 98; O2SAT 96
[2023-03-30] VITALS (12 sets, daily range): BP systolic 123–163; BP diastolic 56–82; PULSE 64–94; RESP 11–18; TEMP 98–98.2; O2SAT 94–98
[2023-03-30 05:30] LABS: BASOPHILS # (AUTO) 0.1 X10'3 (0-0.2); BASOPHILS % (AUTO) 0.7 % (0-1); EOSINOPHILS # (AUTO) 0.3 X10'3 (0-0.9); HEMATOCRIT 43.1 % (42.0-52.0); HEMOGLOBIN 14.5 g/dl (14.0-17.9); LYMPHOCYTES # (AUTO) 2.5 X10'3 (1.1-4.8); LYMPHOCYTES % (AUTO) 33.4 % (21-51); MEAN CORPUSCULAR HEMOGLOBIN 31.8 PG (27.0-31.0); MEAN CORPUSCULAR HGB CONC 33.5 g/dL (33.0-36.5); MEAN CORPUSCULAR VOLUME 94.9 FL (78-98); MEAN PLATELET VOLUME 7.6 FL (7.4-10.4); MONOCYTES # (AUTO) 0.6 X10'3 (0-0.9); MONOCYTES % (AUTO) 8.4 % (2-12); NEUTROPHILS % (AUTO) 53.5 % (42-75); PLATELET COUNT 255 X10'3 (140-440); RED BLOOD COUNT 4.54 X10'6 (4.70-6.10); RED CELL DISTRIBUTION WIDTH 17.4 % (11.5-14.5); WHITE BLOOD COUNT 7.4 X10'3 (4.5-11.0)
[2023-03-30 06:02] LABS: ALANINE AMINOTRANSFERASE 49 U/L (12-78); ALBUMIN 3.3 G/DL (3.4-5.0); ALBUMIN/GLOBULIN RATIO 0.8 (1.1-1.5); ALKALINE PHOSPHATASE 154 IU/L (46-116); ANION GAP 8 (8-16); ASPARTATE AMINO TRANSFERASE 31 U/L (10-37); BILIRUBIN,TOTAL 0.4 MG/DL (0.1-1.0); BLOOD UREA NITROGEN 13 MG/DL (7-18); BUN/CREATININE RATIO 11.1 (10.0-20.0); CALCIUM 9.4 MG/DL (8.5-10.1); CHLORIDE 103 MMOL/L (99-107); CHOLESTEROL 349 MG/DL (0-200); CREATININE 1.17 MG/DL (0.60-1.10); GLUCOSE 145 MG/DL (70-104); HDL CHOLESTEROL 50 MG/DL (35-60); LDL CHOLESTEROL 240 MG/DL (50-100); MAGNESIUM 2.1 MG/DL (1.5-2.4); SODIUM 136 MMOL/L (135-145); TOTAL CARBON DIOXIDE 24.8 MMOL/L (24-32); TOTAL PROTEIN 7.2 G/DL (6.4-8.2); TRIGLYCERIDES 243 MG/DL (20-135); eCRCL 78 ML/MIN; eGFR 63 ML/MIN
[2023-03-30] MEDS: K and/or MAG REPLACEMENT MC SCH ×2 (08:00→20:00)
[2023-03-30] MEDS: docusate sod 100mg capsule PO SCH ×2 (08:00→20:00)
[2023-03-30] MEDS: HYDROcodone/acetaminophen 10/325mg tab PO PRN ×3 (08:46→22:03)
[2023-03-30] MEDS: heparin 25,000 UNIT/250ml bag 250 ML IV PRN (11:50)
[2023-03-30] MEDS ORDERED: heparin 1,000 UNITS/NS 500ml 500 ML ONE ×2 (12:29→14:14)
[2023-03-30] MEDS ORDERED: iohexol 300mg/ml 100ml inj. ONE (12:29)
[2023-03-30] MEDS ORDERED: diphenhydrAMINE 50 mg/ml inj ONE (12:35)
[2023-03-30] MEDS ORDERED: midazolam 1 mg/ML 2ml injection ONE ×2 (12:35→13:21)
[2023-03-30] MEDS ORDERED: fentaNYL/PF 50MCG/1 ML 2ML syringe ONE ×2 (12:35→13:22)
[2023-03-30] MEDS ORDERED: heparin 1,000 UNITS/NS 500ml 500 ML IV SCH (14:15)
[2023-03-30] MEDS: tPA-cathflo 2mg/2ml IV flush 4 MG in normal saline 100ml IV soln 100 ML ICATH SCH ×2 (15:11→20:51)
[2023-03-30] MEDS: heparin 1,000 UNITS/NS 500ml 500 ML IV SCH (15:11)
[2023-03-30] MEDS ORDERED: HYDR-3972 PO (15:55)
[2023-03-30] MEDS ORDERED: HYDROcodone/acetaminophen 10/325mg tab PO PRN (16:00)
[2023-03-30] MEDS ORDERED: proCHLORperazine 10mg tablet PO PRN (16:10)
[2023-03-30] MEDS ORDERED: albuterol 2.5 MG/3 ML nebule NEB PRN (16:10)
[2023-03-30] MEDS: lamoTRIgine 100mg tablet PO SCH (20:54)
[2023-03-30 21:21] LABS: HEMATOCRIT 43.8 % (42.0-52.0); HEMOGLOBIN 14.3 g/dl (14.0-17.9); MEAN CORPUSCULAR HEMOGLOBIN 31.1 PG (27.0-31.0); MEAN CORPUSCULAR HGB CONC 32.7 g/dL (33.0-36.5); MEAN CORPUSCULAR VOLUME 95.2 FL (78-98); MEAN PLATELET VOLUME 7.2 FL (7.4-10.4); PLATELET COUNT 258 X10'3 (140-440); RED CELL DISTRIBUTION WIDTH 17.6 % (11.5-14.5); WHITE BLOOD COUNT 6.9 X10'3 (4.5-11.0)
[2023-03-30 21:37] LABS: FIBRINOGEN 398 MG/DL (177-424)
[2023-03-31] VITALS (25 sets, daily range): BP systolic 108–157; BP diastolic 64–98; PULSE 69–84; RESP 12–21; O2SAT 91–98
[2023-03-31] MEDS: morphine 2 MG/ML inj. syringe IV PRN ×3 (00:55→09:39)
[2023-03-31] MEDS ORDERED: heparin 25,000 UNIT/250ml bag 250 ML IV PRN (01:15)
[2023-03-31] MEDS: heparin 1,000 UNITS/NS 500ml 500 ML IV SCH ×2 (02:01→13:59)
[2023-03-31] MEDS: tPA-cathflo 2mg/2ml IV flush 4 MG in normal saline 100ml IV soln 100 ML ICATH SCH ×3 (05:36→21:27)
[2023-03-31 06:35] LABS: BASOPHILS % (AUTO) 0.4 % (0-1); EOSINOPHILS # (AUTO) 0.2 X10'3 (0-0.9); EOSINOPHILS % (AUTO) 2.3 % (0-6); HEMATOCRIT 42.4 % (42.0-52.0); HEMOGLOBIN 14.1 g/dl (14.0-17.9); LYMPHOCYTES # (AUTO) 1.6 X10'3 (1.1-4.8); LYMPHOCYTES % (AUTO) 15.3 % (21-51); MEAN CORPUSCULAR HEMOGLOBIN 31.9 PG (27.0-31.0); MEAN CORPUSCULAR HGB CONC 33.3 g/dL (33.0-36.5); MEAN CORPUSCULAR VOLUME 95.8 FL (78-98); MEAN PLATELET VOLUME 7.5 FL (7.4-10.4); MONOCYTES # (AUTO) 0.9 X10'3 (0-0.9); MONOCYTES % (AUTO) 8.3 % (2-12); NEUTROPHILS # (AUTO) 7.6 X10'3 (1.8-7.7); NEUTROPHILS % (AUTO) 73.7 % (42-75); PLATELET COUNT 237 X10'3 (140-440); RED BLOOD COUNT 4.43 X10'6 (4.70-6.10); RED CELL DISTRIBUTION WIDTH 17.3 % (11.5-14.5); WHITE BLOOD COUNT 10.4 X10'3 (4.5-11.0)
[2023-03-31 06:41] LABS: ALANINE AMINOTRANSFERASE 58 U/L (12-78); ALBUMIN 3.3 G/DL (3.4-5.0); ALBUMIN/GLOBULIN RATIO 0.8 (1.1-1.5); ALKALINE PHOSPHATASE 153 IU/L (46-116); AMYLASE 33 U/L (25-115); ANION GAP 8 (8-16); ASPARTATE AMINO TRANSFERASE 39 U/L (10-37); BILIRUBIN,TOTAL 0.7 MG/DL (0.1-1.0); BLOOD UREA NITROGEN 13 MG/DL (7-18); BUN/CREATININE RATIO 11.4 (10.0-20.0); CALCIUM 9.3 MG/DL (8.5-10.1); CHLORIDE 100 MMOL/L (99-107); CREATININE 1.14 MG/DL (0.60-1.10); GLUCOSE 145 MG/DL (70-104); LIPASE 23 U/L (16-77); PHOSPHORUS 4.7 MG/DL (2.3-4.5); POTASSIUM 4.2 MMOL/L (3.5-5.1); SODIUM 135 MMOL/L (135-145); TOTAL CARBON DIOXIDE 26.6 MMOL/L (24-32); TOTAL PROTEIN 7.4 G/DL (6.4-8.2); eCRCL 80 ML/MIN; eGFR 65 ML/MIN
[2023-03-31 06:45] LABS: APTT 26 SECONDS (22-32); FIBRINOGEN 389 MG/DL (177-424)
[2023-03-31 06:57] LABS: INR 0.9 INR
[2023-03-31] MEDS: K and/or MAG REPLACEMENT MC SCH ×2 (07:05→19:30)
[2023-03-31] MEDS: pantoprazole 40mg Tablet.DR PO SCH ×2 (07:05→07:35)
[2023-03-31] MEDS: docusate sod 100mg capsule PO SCH ×2 (07:06→20:52)
[2023-03-31] MEDS: ezetimibe 10mg tablet PO SCH (07:06)
[2023-03-31] MEDS: lisinopril 10 MG tablet PO SCH ×2 (07:06→07:35)
[2023-03-31] MEDS: atorvastatin 20mg tablet PO SCH (07:06)
[2023-03-31] MEDS: HYDROcodone/acetaminophen 10/325mg tab PO PRN (07:36)
[2023-03-31] MEDS ORDERED: midazolam 1 mg/ML 2ml injection ONE (09:57)
[2023-03-31] MEDS ORDERED: heparin 1,000 UNITS/NS 500ml 500 ML ONE (09:57)
[2023-03-31] MEDS ORDERED: LIDOcaine 1% 30ml preserv. free vial ONE (09:57)
[2023-03-31] MEDS ORDERED: iohexol 300mg/ml 100ml inj. ONE (09:57)
[2023-03-31] MEDS ORDERED: fentaNYL/PF 50MCG/1 ML 2ML syringe ONE (09:57)
[2023-03-31] MEDS ORDERED: diphenhydrAMINE 50 mg/ml inj ONE (09:57)
[2023-03-31] MEDS ORDERED: naloxone 0.4 mg/ml inj IV PRN (11:00)
[2023-03-31] MEDS ORDERED: PCA WASTE DOCUMENTATION 1 MG ML MC PRN (11:00)
[2023-03-31 11:45] LABS: HEMATOCRIT 42.7 % (42.0-52.0); HEMOGLOBIN 14.2 g/dl (14.0-17.9); MEAN CORPUSCULAR HEMOGLOBIN 31.5 PG (27.0-31.0); MEAN CORPUSCULAR HGB CONC 33.1 g/dL (33.0-36.5); MEAN CORPUSCULAR VOLUME 94.9 FL (78-98); MEAN PLATELET VOLUME 7.1 FL (7.4-10.4); PLATELET COUNT 226 X10'3 (140-440); RED CELL DISTRIBUTION WIDTH 17.5 % (11.5-14.5); WHITE BLOOD COUNT 8.4 X10'3 (4.5-11.0)
[2023-03-31 11:49] LABS: FIBRINOGEN 430 MG/DL (177-424)
[2023-03-31] MEDS: HYDROmorph/NS 0.2 mg/ml PCA 100 ML IV SCH ×7 (11:53→23:00)
[2023-03-31] MEDS ORDERED: FLU VACC QS2023-24(6MOS UP)/PF 60 MCG/0.5 ML SYRINGE IM ONE (12:00)
[2023-03-31] MEDS ORDERED: pneumococcal 23-VAL P-sac vacc 25 mcg/0.5ml vial IMVAC ONE (12:00)
[2023-03-31 19:54] LABS: FIBRINOGEN 338 MG/DL (177-424)
[2023-03-31 20:11] LABS: HEMOGLOBIN 13.6 g/dl (14.0-17.9); MEAN CORPUSCULAR HEMOGLOBIN 31.6 PG (27.0-31.0); MEAN CORPUSCULAR HGB CONC 33.3 g/dL (33.0-36.5); MEAN PLATELET VOLUME 6.8 FL (7.4-10.4); PLATELET COUNT 196 X10'3 (140-440); RED BLOOD COUNT 4.32 X10'6 (4.70-6.10); WHITE BLOOD COUNT 8.5 X10'3 (4.5-11.0)
[2023-03-31 20:21] LABS: FIBRINOGEN 346 MG/DL (177-424)
[2023-03-31] MEDS: lamoTRIgine 100mg tablet PO SCH (20:51)
[2023-04-01] VITALS (18 sets, daily range): BP systolic 102–152; BP diastolic 59–80; PULSE 69–114; RESP 13–23; O2SAT 81–98
[2023-04-01] MEDS ORDERED: heparin 1,000 UNITS/NS 500ml 500 ML ICATH ONE (00:40)
[2023-04-01] MEDS: HYDROmorph/NS 0.2 mg/ml PCA 100 ML IV SCH ×6 (01:00→23:00)
[2023-04-01] MEDS: tPA-cathflo 2mg/2ml IV flush 4 MG in normal saline 100ml IV soln 100 ML ICATH SCH ×3 (05:49→22:15)
[2023-04-01 06:30] LABS: EOSINOPHILS # (AUTO) 0.2 X10'3 (0-0.9); LYMPHOCYTES # (AUTO) 1.6 X10'3 (1.1-4.8); MEAN PLATELET VOLUME 7.4 FL (7.4-10.4); MONOCYTES # (AUTO) 0.8 X10'3 (0-0.9)
[2023-04-01 06:34] LABS: BASOPHILS % (AUTO) 0.4 % (0-1); EOSINOPHILS % (AUTO) 2.3 % (0-6); HEMATOCRIT 39.8 % (42.0-52.0); HEMOGLOBIN 13.3 g/dl (14.0-17.9); LYMPHOCYTES % (AUTO) 16.7 % (21-51); MEAN CORPUSCULAR HEMOGLOBIN 31.7 PG (27.0-31.0); MEAN CORPUSCULAR HGB CONC 33.5 g/dL (33.0-36.5); MEAN CORPUSCULAR VOLUME 94.5 FL (78-98); MONOCYTES % (AUTO) 8.4 % (2-12); NEUTROPHILS # (AUTO) 7.1 X10'3 (1.8-7.7); NEUTROPHILS % (AUTO) 72.2 % (42-75); PLATELET COUNT 193 X10'3 (140-440); RED BLOOD COUNT 4.21 X10'6 (4.70-6.10); RED CELL DISTRIBUTION WIDTH 16.7 % (11.5-14.5); WHITE BLOOD COUNT 9.8 X10'3 (4.5-11.0)
[2023-04-01 06:40] LABS: FIBRINOGEN 338 MG/DL (177-424); PROTHROMBIN TIME 10.8 SECONDS (9.0-12.0)
[2023-04-01 06:53] LABS: ALANINE AMINOTRANSFERASE 42 U/L (12-78); ALBUMIN 3.1 G/DL (3.4-5.0); ALBUMIN/GLOBULIN RATIO 0.8 (1.1-1.5); ALKALINE PHOSPHATASE 130 IU/L (46-116); AMYLASE 31 U/L (25-115); ANION GAP 11 (8-16); ASPARTATE AMINO TRANSFERASE 25 U/L (10-37); BILIRUBIN,TOTAL 1.1 MG/DL (0.1-1.0); BLOOD UREA NITROGEN 12 MG/DL (7-18); BUN/CREATININE RATIO 12.5 (10.0-20.0); CALCIUM 8.9 MG/DL (8.5-10.1); CHLORIDE 99 MMOL/L (99-107); CREATININE 0.96 MG/DL (0.60-1.10); GLUCOSE 137 MG/DL (70-104); LIPASE 23 U/L (16-77); MAGNESIUM 1.9 MG/DL (1.5-2.4); PHOSPHORUS 4.1 MG/DL (2.3-4.5); SODIUM 132 MMOL/L (135-145); TOTAL CARBON DIOXIDE 22.5 MMOL/L (24-32); eCRCL 95 ML/MIN; eGFR 79 ML/MIN
[2023-04-01] MEDS: lisinopril 10 MG tablet PO SCH (07:42)
[2023-04-01] MEDS: ezetimibe 10mg tablet PO SCH (07:42)
[2023-04-01] MEDS: pantoprazole 40mg Tablet.DR PO SCH (07:42)
[2023-04-01] MEDS: atorvastatin 20mg tablet PO SCH (07:43)
[2023-04-01] MEDS: docusate sod 100mg capsule PO SCH ×2 (07:43→20:36)
[2023-04-01] MEDS: K and/or MAG REPLACEMENT MC SCH ×2 (08:00→19:21)
[2023-04-01] MEDS ORDERED: LIDOcaine 1% (10mg/ml)w/preservative inj. 20ml MDV ONE (09:40)
[2023-04-01] MEDS ORDERED: iohexol 300mg/ml 100ml inj. ONE (09:41)
[2023-04-01] MEDS ORDERED: heparin 1,000 UNITS/NS 500ml 500 ML ONE (09:55)
[2023-04-01] MEDS ORDERED: midazolam 1 mg/ML 2ml injection ONE ×2 (10:08→20:59)
[2023-04-01 12:47] LABS: HEMATOCRIT 41.1 % (42.0-52.0); HEMOGLOBIN 13.7 g/dl (14.0-17.9); MEAN CORPUSCULAR HEMOGLOBIN 31.9 PG (27.0-31.0); MEAN CORPUSCULAR HGB CONC 33.4 g/dL (33.0-36.5); MEAN CORPUSCULAR VOLUME 95.6 FL (78-98); MEAN PLATELET VOLUME 7.2 FL (7.4-10.4); PLATELET COUNT 189 X10'3 (140-440); RED CELL DISTRIBUTION WIDTH 16.9 % (11.5-14.5); WHITE BLOOD COUNT 10.7 X10'3 (4.5-11.0)
[2023-04-01] MEDS ORDERED: heparin 10,000 units/1 ML INJ ONE (12:54)
[2023-04-01] MEDS ORDERED: iohexol 300 MG/1 ML 50ml polymer ONE ×3 (12:55→23:52)
[2023-04-01] MEDS ORDERED: ceFAZolin 1000mg inj ONE ×3 (13:18→21:49)
[2023-04-01 13:50] LABS: FIBRINOGEN 370 MG/DL (177-424)
[2023-04-01] MEDS ORDERED: LIDOcaine 1% (10mg/ml) 2ml vial ONE (15:00)
[2023-04-01] MEDS: normal saline 1000ml 1,000 ML IV SCH (19:14)
[2023-04-01] MEDS: lamoTRIgine 100mg tablet PO SCH (20:37)
[2023-04-01] MEDS ORDERED: ondansetron/PF 4mg/2ml inj ONE (20:52)
[2023-04-01] MEDS ORDERED: NORepinephrine 8 MG in NS 250 ML BAG (32 mcg/ml) IV ONE (20:52)
[2023-04-01] MEDS ORDERED: dexamethasone sod phosphate 10mg/ml inj ONE (20:52)
[2023-04-01] MEDS ORDERED: labetalol 20mg/4ml (5mg/ml) syringe IV ONE (20:52)
[2023-04-01] MEDS ORDERED: sevoflurane 250ml liquid IH ONE (20:52)
[2023-04-01] MEDS ORDERED: heparin 10,000 units/1 ML INJ IV ONE (21:00)
[2023-04-01] MEDS ORDERED: fentaNYL /PF 50mcg/ml 5ml ampule ONE (21:00)
[2023-04-01] MEDS ORDERED: propofol inj 20 ML IV ONE (21:50)
[2023-04-01] MEDS ORDERED: rocuronium 10mg/ml inj IV ONE ×2 (21:50→23:39)
[2023-04-01] MEDS ORDERED: LIDOcaine 2% (20mg/ml) 5ml vial ONE (21:50)
[2023-04-01] MEDS ORDERED: 0.9 % SODIUM CHLORIDE 10 ML VIAL ONE (22:01)
[2023-04-01] MEDS ORDERED: ePHEDrine 50MG/ML INJ. ONE (22:01)
[2023-04-02] VITALS (27 sets, daily range): BP systolic 97–154; BP diastolic 49–75; PULSE 78–114; RESP 13–24; O2SAT 92–98
[2023-04-02] MEDS ORDERED: hydrALAZINE 20mg/ml inj. IV PRN (00:10)
[2023-04-02] MEDS ORDERED: morphine 4 MG/ML inj SYRINge IV PRN (00:10)
[2023-04-02] MEDS ORDERED: morphine 2 MG/ML inj. syringe IV PRN (00:10)
[2023-04-02] MEDS ORDERED: acetaminophen 1,000mg/100ml IV 100 ML IV ONE (00:10)
[2023-04-02] MEDS ORDERED: ondansetron/PF 4mg/2ml inj IV PRN ×2 (00:10→00:30)
[2023-04-02] MEDS ORDERED: labetalol 20mg/4ml (5mg/ml) syringe IV PRN (00:10)
[2023-04-02] MEDS ORDERED: meperidine/PF 25mg/ml syringe IV PRN ×3 (00:10)
[2023-04-02] MEDS ORDERED: proCHLORperazine 10 MG/2 ml inj IV PRN (00:10)
[2023-04-02] MEDS ORDERED: ringers solution, lacted 1,000 ML IV SCH (00:10)
[2023-04-02] MEDS ORDERED: HYDROcodone/acetaminophen 10/325mg tab PO PRN (00:25)
[2023-04-02] MEDS ORDERED: naloxone 0.4 mg/ml inj IV PRN (00:30)
[2023-04-02] MEDS ORDERED: neostigmine methylsulfate 1 MG/ML 10ml vial ONE (00:40)
[2023-04-02] MEDS ORDERED: morphine 10mg/ml inj. ONE (00:40)
[2023-04-02] MEDS ORDERED: glycopyrrolate 0.2mg/ml inj ONE (00:40)
[2023-04-02] MEDS ORDERED: heparin 1,000unit/ml 10ml vial 10 ML ONE (00:40)
[2023-04-02] MEDS ORDERED: propofol inj 20 ML IV ONE (00:40)
[2023-04-02] MEDS: HYDROmorph/NS 0.2 mg/ml PCA 100 ML IV SCH ×11 (01:00→21:00)
[2023-04-02 01:14] LABS: APTT > 139 SECONDS (22-32)
[2023-04-02 01:20] LABS: BASOPHILS % (AUTO) 0.2 % (0-1); EOSINOPHILS # (AUTO) 0.1 X10'3 (0-0.9); HEMOGLOBIN 10.9 g/dl (14.0-17.9); MEAN CORPUSCULAR VOLUME 96.9 FL (78-98); MEAN PLATELET VOLUME 7.2 FL (7.4-10.4); MONOCYTES # (AUTO) 0.8 X10'3 (0-0.9); MONOCYTES % (AUTO) 6.5 % (2-12); NEUTROPHILS # (AUTO) 10.9 X10'3 (1.8-7.7); NEUTROPHILS % (AUTO) 84.3 % (42-75); PLATELET COUNT 171 X10'3 (140-440); WHITE BLOOD COUNT 12.9 X10'3 (4.5-11.0)
[2023-04-02] MEDS: normal saline 1000ml 1,000 ML IV SCH ×2 (01:20→16:20)
[2023-04-02 01:31] LABS: INR 1.1 INR; PROTHROMBIN TIME 11.5 SECONDS (9.0-12.0)
[2023-04-02 01:37] LABS: ALANINE AMINOTRANSFERASE 30 U/L (12-78); ALBUMIN 2.4 G/DL (3.4-5.0); ALBUMIN/GLOBULIN RATIO 0.7 (1.1-1.5); ALKALINE PHOSPHATASE 102 IU/L (46-116); AMYLASE 31 U/L (25-115); ANION GAP 8 (8-16); ASPARTATE AMINO TRANSFERASE 25 U/L (10-37); BILIRUBIN,TOTAL 1.6 MG/DL (0.1-1.0); BLOOD UREA NITROGEN 13 MG/DL (7-18); CALCIUM 7.8 MG/DL (8.5-10.1); CHLORIDE 101 MMOL/L (99-107); CREATININE 1.18 MG/DL (0.60-1.10); GLUCOSE 157 MG/DL (70-104); LIPASE 22 U/L (16-77); MAGNESIUM 1.6 MG/DL (1.5-2.4); PHOSPHORUS 4.1 MG/DL (2.3-4.5); SODIUM 132 MMOL/L (135-145); TOTAL PROTEIN 5.8 G/DL (6.4-8.2); eCRCL 78 ML/MIN; eGFR 63 ML/MIN
[2023-04-02] MEDS: K and/or MAG REPLACEMENT MC SCH ×2 (06:50→20:00)
[2023-04-02] MEDS ORDERED: enoxaparin 40mg/0.4ml syringe SQ SCH (08:00)
[2023-04-02] MEDS ORDERED: ceFAZolin/D5W- 1GM premix 50 ML IV SCH (08:00)
[2023-04-02] MEDS: docusate sod 100mg capsule PO SCH ×2 (08:06→19:52)
[2023-04-02] MEDS: apixaban 5mg tablet PO SCH ×2 (08:07→19:52)
[2023-04-02] MEDS: clopidogrel 75mg tablet PO SCH (08:07)
[2023-04-02] MEDS: pantoprazole 40mg Tablet.DR PO SCH (08:07)
[2023-04-02] MEDS: ezetimibe 10mg tablet PO SCH (08:08)
[2023-04-02] MEDS: atorvastatin 20mg tablet PO SCH (08:08)
[2023-04-02] MEDS: lisinopril 10 MG tablet PO SCH (08:15)
[2023-04-02] MEDS: acetaminophen 325mg tablet PO PRN ×3 (08:29→23:37)
[2023-04-02] MEDS: cefepime 2g/NS 100ml ADVANTAGE 100 ML IV SCH ×2 (09:15→16:03)
[2023-04-02] MEDS: vancomycin/NS 1 GM ADD-VANTAGE 250 ML IV SCH ×2 (09:15→20:50)
[2023-04-02] MEDS ORDERED: iohexol 350MG/ML 100ml bottle IV ONE (11:12)
[2023-04-02] MEDS ORDERED: iohexol 350 MG/ML 50ML vial IV ONE (11:12)
[2023-04-02] MEDS: lamoTRIgine 100mg tablet PO SCH (19:53)
[2023-04-03] VITALS (24 sets, daily range): BP systolic 81–146; BP diastolic 41–86; PULSE 75–111; RESP 12–26; O2SAT 95–98
[2023-04-03] MEDS: HYDROmorph/NS 0.2 mg/ml PCA 100 ML IV SCH ×2 (00:57→03:00)
[2023-04-03] MEDS: cefepime 2g/NS 100ml ADVANTAGE 100 ML IV SCH ×3 (01:07→16:00)
[2023-04-03] MEDS: normal saline 1000ml 1,000 ML IV SCH ×2 (02:15→04:12)
[2023-04-03 02:57] LABS: BASOPHILS % (AUTO) 0.4 % (0-1); EOSINOPHILS # (AUTO) 0.1 X10'3 (0-0.9); EOSINOPHILS % (AUTO) 1.8 % (0-6); HEMATOCRIT 29.1 % (42.0-52.0); HEMOGLOBIN 9.8 g/dl (14.0-17.9); LYMPHOCYTES # (AUTO) 0.7 X10'3 (1.1-4.8); LYMPHOCYTES % (AUTO) 10.9 % (21-51); MEAN CORPUSCULAR HEMOGLOBIN 32.2 PG (27.0-31.0); MEAN CORPUSCULAR HGB CONC 33.5 g/dL (33.0-36.5); MEAN PLATELET VOLUME 7.2 FL (7.4-10.4); MONOCYTES # (AUTO) 0.7 X10'3 (0-0.9); MONOCYTES % (AUTO) 10.7 % (2-12); NEUTROPHILS % (AUTO) 76.2 % (42-75); PLATELET COUNT 160 X10'3 (140-440); RED BLOOD COUNT 3.03 X10'6 (4.70-6.10); RED CELL DISTRIBUTION WIDTH 16.9 % (11.5-14.5); WHITE BLOOD COUNT 6.6 X10'3 (4.5-11.0)
[2023-04-03 03:12] LABS: PROTHROMBIN TIME 10.7 SECONDS (9.0-12.0)
[2023-04-03 03:19] LABS: ALANINE AMINOTRANSFERASE 54 U/L (12-78); ALBUMIN 2.2 G/DL (3.4-5.0); ALBUMIN/GLOBULIN RATIO 0.6 (1.1-1.5); ALKALINE PHOSPHATASE 97 IU/L (46-116); AMYLASE 36 U/L (25-115); ANION GAP 10 (8-16); ASPARTATE AMINO TRANSFERASE 88 U/L (10-37); BLOOD UREA NITROGEN 8 MG/DL (7-18); BUN/CREATININE RATIO 7.6 (10.0-20.0); CHLORIDE 101 MMOL/L (99-107); CREATININE 1.05 MG/DL (0.60-1.10); GLUCOSE 181 MG/DL (70-104); LIPASE 20 U/L (16-77); PHOSPHORUS 2.2 MG/DL (2.3-4.5); POTASSIUM 3.5 MMOL/L (3.5-5.1); SODIUM 132 MMOL/L (135-145); TOTAL CARBON DIOXIDE 21.3 MMOL/L (24-32); TOTAL PROTEIN 5.8 G/DL (6.4-8.2); eCRCL 87 ML/MIN; eGFR 72 ML/MIN
[2023-04-03] MEDS: K and/or MAG REPLACEMENT MC SCH ×2 (08:00→20:00)
[2023-04-03] MEDS: clopidogrel 75mg tablet PO SCH (08:34)
[2023-04-03] MEDS: atorvastatin 20mg tablet PO SCH (08:36)
[2023-04-03] MEDS: docusate sod 100mg capsule PO SCH ×2 (08:36→19:52)
[2023-04-03] MEDS: apixaban 5mg tablet PO SCH ×2 (08:36→19:50)
[2023-04-03] MEDS: lisinopril 10 MG tablet PO SCH (08:37)
[2023-04-03] MEDS: ezetimibe 10mg tablet PO SCH (08:37)
[2023-04-03] MEDS: pantoprazole 40mg Tablet.DR PO SCH (08:38)
[2023-04-03] MEDS: HYDROcodone/acetaminophen 10/325mg tab PO PRN ×2 (09:28→19:51)
[2023-04-03] MEDS: vancomycin/NS 1 GM ADD-VANTAGE 250 ML IV SCH (09:28)
[2023-04-03] MEDS: lactose-reduced food (Ensure Enlive) - 237ml bottle PO SCH (17:30)
[2023-04-03] MEDS: lamoTRIgine 100mg tablet PO SCH (19:51)
[2023-04-03] MEDS ORDERED: VANCOMYCIN LEVEL IV ONE (20:30)
[2023-04-03] MEDS: VANCOmycin 1250MG/NS 250ml Bag 250 ML IV SCH (21:06)
[2023-04-04] VITALS (13 sets, daily range): BP systolic 98–129; BP diastolic 47–73; PULSE 74–91; RESP 16–26; TEMP 98.1–98.6; O2SAT 94–100
[2023-04-04] MEDS: cefepime 2g/NS 100ml ADVANTAGE 100 ML IV SCH ×3 (00:06→15:32)
[2023-04-04 02:48] LABS: PROTHROMBIN TIME 10.3 SECONDS (9.0-12.0)
[2023-04-04 02:54] LABS: ALBUMIN 2.2 G/DL (3.4-5.0); AMYLASE 43 U/L (25-115); ANION GAP 10 (8-16); BLOOD UREA NITROGEN 9 MG/DL (7-18); BUN/CREATININE RATIO 9.7 (10.0-20.0); CHLORIDE 105 MMOL/L (99-107); CREATININE 0.93 MG/DL (0.60-1.10); GLUCOSE 149 MG/DL (70-104); LIPASE 51 U/L (16-77); PHOSPHORUS 2.1 MG/DL (2.3-4.5); POTASSIUM 3.3 MMOL/L (3.5-5.1); SODIUM 135 MMOL/L (135-145); eCRCL 98 ML/MIN; eGFR 82 ML/MIN
[2023-04-04] MEDS ORDERED: potassium phosphate inj 30 MMOL in normal saline 250ml IV soln 250 ML IV ONE (03:20)
[2023-04-04] MEDS: HYDROcodone/acetaminophen 10/325mg tab PO PRN ×3 (06:52→20:33)
[2023-04-04] MEDS: lactose-reduced food (Ensure Enlive) - 237ml bottle PO SCH ×2 (07:30→17:38)
[2023-04-04] MEDS: pantoprazole 40mg Tablet.DR PO SCH (07:32)
[2023-04-04] MEDS: clopidogrel 75mg tablet PO SCH (07:32)
[2023-04-04] MEDS: atorvastatin 20mg tablet PO SCH (07:33)
[2023-04-04] MEDS: lisinopril 10 MG tablet PO SCH (07:33)
[2023-04-04] MEDS: apixaban 5mg tablet PO SCH ×2 (07:33→20:29)
[2023-04-04] MEDS: ezetimibe 10mg tablet PO SCH (07:34)
[2023-04-04 08:00] LABS: BASOPHILS # (AUTO) 0.1 X10'3 (0-0.2); BASOPHILS % (AUTO) 1.1 % (0-1); EOSINOPHILS # (AUTO) 0.3 X10'3 (0-0.9); EOSINOPHILS % (AUTO) 4.4 % (0-6); HEMOGLOBIN 10.1 g/dl (14.0-17.9); LYMPHOCYTES # (AUTO) 1.1 X10'3 (1.1-4.8); LYMPHOCYTES % (AUTO) 19.3 % (21-51); MEAN CORPUSCULAR HEMOGLOBIN 31.5 PG (27.0-31.0); MEAN CORPUSCULAR HGB CONC 32.7 g/dL (33.0-36.5); MEAN CORPUSCULAR VOLUME 96.4 FL (78-98); MEAN PLATELET VOLUME 7.4 FL (7.4-10.4); MONOCYTES # (AUTO) 0.8 X10'3 (0-0.9); MONOCYTES % (AUTO) 13.4 % (2-12); NEUTROPHILS # (AUTO) 3.6 X10'3 (1.8-7.7); NEUTROPHILS % (AUTO) 61.8 % (42-75); PLATELET COUNT 205 X10'3 (140-440); RED BLOOD COUNT 3.21 X10'6 (4.70-6.10); RED CELL DISTRIBUTION WIDTH 17.3 % (11.5-14.5); WHITE BLOOD COUNT 5.8 X10'3 (4.5-11.0)
[2023-04-04] MEDS: K and/or MAG REPLACEMENT MC SCH ×3 (08:00→19:33)
[2023-04-04] MEDS: docusate sod 100mg capsule PO SCH ×2 (08:00→20:00)
[2023-04-04 08:11] LABS: ALANINE AMINOTRANSFERASE 90 U/L (12-78); ALBUMIN/GLOBULIN RATIO 0.5 (1.1-1.5); ALKALINE PHOSPHATASE 141 IU/L (46-116); ASPARTATE AMINO TRANSFERASE 115 U/L (10-37); BILIRUBIN,DIRECT 0.3 MG/DL (0-0.3); BILIRUBIN,TOTAL 0.5 MG/DL (0.1-1.0); TOTAL PROTEIN 6.6 G/DL (6.4-8.2)
[2023-04-04] MEDS: VANCOmycin 1250MG/NS 250ml Bag 250 ML IV SCH ×2 (08:44→20:31)
[2023-04-04] MEDS ORDERED: potassium Cl 40MEQ/1/2NS 520ml 520 ML IV PRN (16:20)
[2023-04-04] MEDS ORDERED: potassium Cl 20 mEq SR tablet PO PRN ×2 (16:20)
[2023-04-04] MEDS: lamoTRIgine 100mg tablet PO SCH (20:29)
[2023-04-04] MEDS: traZODone 50mg tablet PO PRN (20:33)
[2023-04-05] MEDS: cefepime 2g/NS 100ml ADVANTAGE 100 ML IV SCH ×3 (00:21→17:34)
[2023-04-05 06:00] VITALS: BP 97/46; PULSE 89; RESP 20; TEMP 98.8; O2SAT 96
[2023-04-05 06:22] LABS: ALANINE AMINOTRANSFERASE 72 U/L (12-78); ALBUMIN 2.2 G/DL (3.4-5.0); ALBUMIN/GLOBULIN RATIO 0.5 (1.1-1.5); ALKALINE PHOSPHATASE 147 IU/L (46-116); ANION GAP 13 (8-16); ASPARTATE AMINO TRANSFERASE 58 U/L (10-37); BILIRUBIN,TOTAL 0.5 MG/DL (0.1-1.0); BLOOD UREA NITROGEN 9 MG/DL (7-18); BUN/CREATININE RATIO 9.6 (10.0-20.0); CALCIUM 8.7 MG/DL (8.5-10.1); CHLORIDE 106 MMOL/L (99-107); CREATININE 0.94 MG/DL (0.60-1.10); GLUCOSE 141 MG/DL (70-104); POTASSIUM 3.6 MMOL/L (3.5-5.1); SODIUM 138 MMOL/L (135-145); TOTAL CARBON DIOXIDE 19.4 MMOL/L (24-32); TOTAL PROTEIN 6.5 G/DL (6.4-8.2); eCRCL 97 ML/MIN; eGFR 81 ML/MIN
[2023-04-05 06:37] LABS: BASOPHILS % (AUTO) 0.6 % (0-1); EOSINOPHILS # (AUTO) 0.4 X10'3 (0-0.9); EOSINOPHILS % (AUTO) 6.3 % (0-6); HEMATOCRIT 29.7 % (42.0-52.0); LYMPHOCYTES # (AUTO) 1.3 X10'3 (1.1-4.8); LYMPHOCYTES % (AUTO) 21.2 % (21-51); MEAN CORPUSCULAR HEMOGLOBIN 32.2 PG (27.0-31.0); MEAN CORPUSCULAR HGB CONC 33.5 g/dL (33.0-36.5); MEAN CORPUSCULAR VOLUME 96.1 FL (78-98); MEAN PLATELET VOLUME 7.6 FL (7.4-10.4); MONOCYTES # (AUTO) 0.7 X10'3 (0-0.9); NEUTROPHILS # (AUTO) 3.7 X10'3 (1.8-7.7); NEUTROPHILS % (AUTO) 59.9 % (42-75); PLATELET COUNT 241 X10'3 (140-440); RED BLOOD COUNT 3.09 X10'6 (4.70-6.10); RED CELL DISTRIBUTION WIDTH 16.6 % (11.5-14.5); WHITE BLOOD COUNT 6.2 X10'3 (4.5-11.0)
[2023-04-05] MEDS: lactose-reduced food (Ensure Enlive) - 237ml bottle PO SCH ×2 (07:30→18:24)
[2023-04-05] MEDS ORDERED: VANCOMYCIN LEVEL IV ONE (08:30)
[2023-04-05 10:00] VITALS: BP 141/69; PULSE 77; RESP 20; TEMP 98.2; O2SAT 97
[2023-04-05] MEDS: morphine 2 MG/ML inj. syringe IV PRN (11:03)
[2023-04-05] MEDS: VANCOmycin 1250MG/NS 250ml Bag 250 ML IV SCH ×2 (13:13→21:11)
[2023-04-05] MEDS: atorvastatin 20mg tablet PO SCH (13:14)
[2023-04-05] MEDS: apixaban 5mg tablet PO SCH ×2 (13:14→20:00)
[2023-04-05] MEDS: clopidogrel 75mg tablet PO SCH (13:14)
[2023-04-05] MEDS: lisinopril 10 MG tablet PO SCH (13:14)
[2023-04-05] MEDS: ezetimibe 10mg tablet PO SCH (13:15)
[2023-04-05] MEDS: pantoprazole 40mg Tablet.DR PO SCH (13:15)
[2023-04-05] MEDS: docusate sod 100mg capsule PO SCH ×2 (13:23→20:00)
[2023-04-05] MEDS: K and/or MAG REPLACEMENT MC SCH ×4 (13:24→20:00)
[2023-04-05 20:00] VITALS: RESP 16; O2SAT 98
[2023-04-05] MEDS: lamoTRIgine 100mg tablet PO SCH (21:11)
[2023-04-05] MEDS: HYDROcodone/acetaminophen 10/325mg tab PO PRN (21:14)
[2023-04-05] MEDS: traZODone 50mg tablet PO PRN (21:49)
[2023-04-05 22:00] VITALS: BP 134/74; PULSE 84; RESP 16; TEMP 98; O2SAT 97
[2023-04-06] VITALS (17 sets, daily range): BP systolic 77–146; BP diastolic 50–81; PULSE 85–128; RESP 14–29; TEMP 98.3–98.5; O2SAT 91–100
[2023-04-06] MEDS: cefepime 2g/NS 100ml ADVANTAGE 100 ML IV SCH ×3 (00:35→16:00)
[2023-04-06 06:57] LABS: BASOPHILS # (AUTO) 0.1 X10'3 (0-0.2); BASOPHILS % (AUTO) 1.2 % (0-1); EOSINOPHILS # (AUTO) 0.4 X10'3 (0-0.9); EOSINOPHILS % (AUTO) 5.8 % (0-6); HEMATOCRIT 29.2 % (42.0-52.0); HEMOGLOBIN 9.7 g/dl (14.0-17.9); LYMPHOCYTES # (AUTO) 1.2 X10'3 (1.1-4.8); LYMPHOCYTES % (AUTO) 19.3 % (21-51); MEAN CORPUSCULAR HEMOGLOBIN 31.8 PG (27.0-31.0); MEAN CORPUSCULAR HGB CONC 33.3 g/dL (33.0-36.5); MEAN CORPUSCULAR VOLUME 95.5 FL (78-98); MEAN PLATELET VOLUME 7.7 FL (7.4-10.4); MONOCYTES # (AUTO) 0.7 X10'3 (0-0.9); MONOCYTES % (AUTO) 10.4 % (2-12); NEUTROPHILS # (AUTO) 4.1 X10'3 (1.8-7.7); NEUTROPHILS % (AUTO) 63.3 % (42-75); PLATELET COUNT 289 X10'3 (140-440); RED BLOOD COUNT 3.06 X10'6 (4.70-6.10); RED CELL DISTRIBUTION WIDTH 16.7 % (11.5-14.5); WHITE BLOOD COUNT 6.5 X10'3 (4.5-11.0)
[2023-04-06 07:08] LABS: ALANINE AMINOTRANSFERASE 70 U/L (12-78); ALBUMIN 2.3 G/DL (3.4-5.0); ALBUMIN/GLOBULIN RATIO 0.5 (1.1-1.5); ALKALINE PHOSPHATASE 179 IU/L (46-116); ANION GAP 9 (8-16); ASPARTATE AMINO TRANSFERASE 42 U/L (10-37); BILIRUBIN,TOTAL 0.4 MG/DL (0.1-1.0); BLOOD UREA NITROGEN 12 MG/DL (7-18); BUN/CREATININE RATIO 11.9 (10.0-20.0); CALCIUM 8.9 MG/DL (8.5-10.1); CHLORIDE 107 MMOL/L (99-107); CREATININE 1.01 MG/DL (0.60-1.10); GLUCOSE 191 MG/DL (70-104); POTASSIUM 3.7 MMOL/L (3.5-5.1); SODIUM 138 MMOL/L (135-145); TOTAL CARBON DIOXIDE 21.8 MMOL/L (24-32); TOTAL PROTEIN 6.7 G/DL (6.4-8.2); eCRCL 91 ML/MIN; eGFR 75 ML/MIN
[2023-04-06] MEDS: lactose-reduced food (Ensure Enlive) - 237ml bottle PO SCH ×2 (07:30→17:30)
[2023-04-06] MEDS: pantoprazole 40mg Tablet.DR PO SCH (07:30)
[2023-04-06] MEDS: atorvastatin 20mg tablet PO SCH (08:00)
[2023-04-06] MEDS: lisinopril 10 MG tablet PO SCH (08:00)
[2023-04-06] MEDS: K and/or MAG REPLACEMENT MC SCH ×3 (08:00→20:00)
[2023-04-06] MEDS: docusate sod 100mg capsule PO SCH ×2 (08:00→21:19)
[2023-04-06] MEDS: clopidogrel 75mg tablet PO SCH (08:00)
[2023-04-06] MEDS: ezetimibe 10mg tablet PO SCH (08:00)
[2023-04-06] MEDS: apixaban 5mg tablet PO SCH ×2 (08:00→21:19)
[2023-04-06] MEDS: VANCOmycin 1250MG/NS 250ml Bag 250 ML IV SCH ×2 (09:00→21:21)
[2023-04-06] MEDS ORDERED: midazolam 1 mg/ML 2ml injection ONE ×2 (09:02→12:19)
[2023-04-06] MEDS ORDERED: fentaNYL/PF 50MCG/1 ML 2ML syringe ONE ×2 (09:03→15:45)
[2023-04-06] MEDS ORDERED: heparin 1,000 UNITS/NS 500ml 500 ML ONE (09:03)
[2023-04-06] MEDS ORDERED: iohexol 300mg/ml 100ml inj. ONE (09:03)
[2023-04-06] MEDS ORDERED: LIDOcaine 1% 30ml preserv. free vial ONE (09:07)
[2023-04-06] MEDS ORDERED: diphenhydrAMINE 50 mg/ml inj ONE (10:28)
[2023-04-06] MEDS ORDERED: heparin 10,000 units/1 ML INJ ONE (11:47)
[2023-04-06] MEDS ORDERED: LIDOcaine 1% (10mg/ml)w/preservative inj. 20ml MDV ONE (12:19)
[2023-04-06] MEDS ORDERED: iohexol 300 MG/1 ML 50ml polymer ONE ×2 (12:19→16:32)
[2023-04-06] MEDS ORDERED: fentaNYL /PF 50mcg/ml 5ml ampule ONE (12:19)
[2023-04-06] MEDS ORDERED: propofol inj 20 ML IV ONE (12:20)
[2023-04-06] MEDS ORDERED: rocuronium 10mg/ml inj IV ONE (12:20)
[2023-04-06] MEDS ORDERED: ePHEDrine 50MG/ML INJ. ONE (12:23)
[2023-04-06] MEDS ORDERED: ceFAZolin 1000mg inj ONE ×2 (13:23)
[2023-04-06] MEDS ORDERED: LIDOcaine 1% 30ml preserv. free vial SQ ONE (13:30)
[2023-04-06] MEDS ORDERED: heparin 10,000 units/1 ML INJ IR ONE ×2 (14:19→14:21)
[2023-04-06] MEDS ORDERED: albumin (Human) 5% 250ml 250 ML IV ONE ×3 (14:31→19:32)
[2023-04-06] MEDS ORDERED: ringers solution, lacted 1,000 ML IV SCH (14:40)
[2023-04-06] MEDS ORDERED: meperidine/PF 25mg/ml syringe IV PRN ×2 (14:40)
[2023-04-06] MEDS ORDERED: ondansetron/PF 4mg/2ml inj IV PRN (14:40)
[2023-04-06] MEDS ORDERED: proCHLORperazine 10 MG/2 ml inj IV PRN (14:40)
[2023-04-06] MEDS ORDERED: morphine 2 MG/ML inj. syringe IV PRN (14:40)
[2023-04-06] MEDS ORDERED: heparin 1,000unit/ml 10ml vial 10 ML ONE (15:49)
[2023-04-06] MEDS ORDERED: iohexol 300 MG/1 ML 50ml polymer ICATH ONE (16:04)
[2023-04-06] MEDS ORDERED: protamine sulfate 10mg/ml inj. ONE (16:55)
[2023-04-06] MEDS ORDERED: acetaminophen 1,000mg/100ml IV 100 ML IV ONE (17:34)
[2023-04-06] MEDS: meperidine/PF 25mg/ml syringe IV PRN ×4 (18:04→19:03)
[2023-04-06 18:09] LABS: APTT > 139 SECONDS (22-32)
[2023-04-06] MEDS: morphine 4 MG/ML inj SYRINge IV PRN ×2 (18:09→18:20)
[2023-04-06 19:13] LABS: BASOPHILS # (AUTO) 0.1 X10'3 (0-0.2); BASOPHILS % (AUTO) 0.6 % (0-1); EOSINOPHILS # (AUTO) 0.2 X10'3 (0-0.9); EOSINOPHILS % (AUTO) 1.6 % (0-6); HEMATOCRIT 22.9 % (42.0-52.0); HEMOGLOBIN 7.6 g/dl (14.0-17.9); LYMPHOCYTES # (AUTO) 1.3 X10'3 (1.1-4.8); LYMPHOCYTES % (AUTO) 10.8 % (21-51); MEAN CORPUSCULAR HEMOGLOBIN 31.8 PG (27.0-31.0); MEAN CORPUSCULAR HGB CONC 33.3 g/dL (33.0-36.5); MEAN CORPUSCULAR VOLUME 95.7 FL (78-98); MEAN PLATELET VOLUME 7.6 FL (7.4-10.4); MONOCYTES # (AUTO) 0.9 X10'3 (0-0.9); MONOCYTES % (AUTO) 7.6 % (2-12); NEUTROPHILS # (AUTO) 9.2 X10'3 (1.8-7.7); NEUTROPHILS % (AUTO) 79.4 % (42-75); PLATELET COUNT 356 X10'3 (140-440); RED BLOOD COUNT 2.39 X10'6 (4.70-6.10); RED CELL DISTRIBUTION WIDTH 16.5 % (11.5-14.5); WHITE BLOOD COUNT 11.5 X10'3 (4.5-11.0)
[2023-04-06] MEDS ORDERED: albumin (Human) 5% 250ml 750 ML IV ONE (19:32)
[2023-04-06] MEDS ORDERED: albumin (Human) 5% 250ml 500 ML IV ONE ×2 (19:35→20:18)
[2023-04-06] MEDS ORDERED: LORazepam 2 mg/ml vial IV PRN (19:35)
[2023-04-06] MEDS ORDERED: albumin (human) 25% 100ml IV 100 ML in dextrose 5% water 500ml 400 ML IV ONE (19:35)
[2023-04-06] MEDS ORDERED: albumin (human) 25% 100ml IV 100 ML in normal saline 500ml IV soln 400 ML IV ONE (19:35)
[2023-04-06] MEDS: morphine 2 MG/ML inj. syringe IV PRN ×2 (19:45→21:15)
[2023-04-06] MEDS ORDERED: LORazepam 2 mg/ml vial ONE (19:53)
[2023-04-06 20:21] LABS: APTT 26 SECONDS (22-32)
[2023-04-06] MEDS ORDERED: iohexol 350MG/ML 100ml bottle IV ONE (20:24)
[2023-04-06] MEDS: lamoTRIgine 100mg tablet PO SCH (21:21)
[2023-04-06] MEDS: traZODone 50mg tablet PO PRN (21:53)
[2023-04-06 22:11] LABS: LYMPHOCYTES # (AUTO) 0.7 X10'3 (1.1-4.8); MEAN CORPUSCULAR VOLUME 95.4 FL (78-98); WHITE BLOOD COUNT 8.6 X10'3 (4.5-11.0)
[2023-04-06 22:13] LABS: BASOPHILS % (AUTO) 0.5 % (0-1); EOSINOPHILS # (AUTO) 0.1 X10'3 (0-0.9); EOSINOPHILS % (AUTO) 0.6 % (0-6); LYMPHOCYTES % (AUTO) 8.1 % (21-51); MEAN CORPUSCULAR HEMOGLOBIN 32.1 PG (27.0-31.0); MEAN CORPUSCULAR HGB CONC 33.7 g/dL (33.0-36.5); MEAN PLATELET VOLUME 7.4 FL (7.4-10.4); MONOCYTES # (AUTO) 0.6 X10'3 (0-0.9); MONOCYTES % (AUTO) 6.9 % (2-12); NEUTROPHILS # (AUTO) 7.2 X10'3 (1.8-7.7); NEUTROPHILS % (AUTO) 83.9 % (42-75); PLATELET COUNT 240 X10'3 (140-440); RED BLOOD COUNT 1.81 X10'6 (4.70-6.10); RED CELL DISTRIBUTION WIDTH 16.6 % (11.5-14.5)
[2023-04-06 22:18] LABS: HEMATOCRIT 17.3 % (42.0-52.0); HEMOGLOBIN 5.8 g/dl (14.0-17.9)
[2023-04-06 22:58] LABS: NUCLEATED RED BLOOD CELLS 1 /100WBC (0-0); TOTAL CELLS COUNTED 100
[2023-04-06 22:59] LABS: ANISOCYTOSIS 1+; LARGE PLATELETS FEW; PLATELET ESTIMATE NORMAL; POLYCHROMASIA FEW
[2023-04-07] VITALS (29 sets, daily range): BP systolic 101–156; BP diastolic 47–66; PULSE 73–114; RESP 11–24; TEMP 98.4–99.4; O2SAT 96–100
[2023-04-07] MEDS: cefepime 2g/NS 100ml ADVANTAGE 100 ML IV SCH ×3 (00:19→15:58)
[2023-04-07 03:07] LABS: EOSINOPHILS # (AUTO) 0.1 X10'3 (0-0.9); MEAN PLATELET VOLUME 7.5 FL (7.4-10.4); MONOCYTES # (AUTO) 0.7 X10'3 (0-0.9); NEUTROPHILS # (AUTO) 5.3 X10'3 (1.8-7.7)
[2023-04-07 03:09] LABS: BASOPHILS % (AUTO) 0.7 % (0-1); LYMPHOCYTES # (AUTO) 1.1 X10'3 (1.1-4.8); LYMPHOCYTES % (AUTO) 14.9 % (21-51); MEAN CORPUSCULAR HEMOGLOBIN 31.1 PG (27.0-31.0); MEAN CORPUSCULAR HGB CONC 33.5 g/dL (33.0-36.5); MEAN CORPUSCULAR VOLUME 92.9 FL (78-98); MONOCYTES % (AUTO) 9.5 % (2-12); NEUTROPHILS % (AUTO) 73.9 % (42-75); PLATELET COUNT 269 X10'3 (140-440); RED BLOOD COUNT 2.19 X10'6 (4.70-6.10); RED CELL DISTRIBUTION WIDTH 17.5 % (11.5-14.5); WHITE BLOOD COUNT 7.2 X10'3 (4.5-11.0)
[2023-04-07 03:12] LABS: HEMATOCRIT 20.4 % (42.0-52.0); HEMOGLOBIN 6.8 g/dl (14.0-17.9)
[2023-04-07] MEDS: morphine 2 MG/ML inj. syringe IV PRN ×2 (03:18→10:19)
[2023-04-07 03:24] LABS: ALANINE AMINOTRANSFERASE 41 U/L (12-78); ALBUMIN 3.2 G/DL (3.4-5.0); ALBUMIN/GLOBULIN RATIO 1.2 (1.1-1.5); ALKALINE PHOSPHATASE 86 IU/L (46-116); ANION GAP 11 (8-16); ASPARTATE AMINO TRANSFERASE 24 U/L (10-37); BILIRUBIN,TOTAL 0.8 MG/DL (0.1-1.0); BLOOD UREA NITROGEN 8 MG/DL (7-18); BUN/CREATININE RATIO 10.1 (10.0-20.0); CALCIUM 7.9 MG/DL (8.5-10.1); CHLORIDE 108 MMOL/L (99-107); CREATININE 0.79 MG/DL (0.60-1.10); GLUCOSE 146 MG/DL (70-104); POTASSIUM 3.7 MMOL/L (3.5-5.1); SODIUM 138 MMOL/L (135-145); TOTAL CARBON DIOXIDE 18.6 MMOL/L (24-32); TOTAL PROTEIN 5.9 G/DL (6.4-8.2); eCRCL 116 ML/MIN; eGFR > 90 ML/MIN
[2023-04-07] MEDS: normal saline 1000ml 1,000 ML IV SCH ×3 (05:11→17:21)
[2023-04-07] MEDS: lactose-reduced food (Ensure Enlive) - 237ml bottle PO SCH ×2 (07:30→17:50)
[2023-04-07] MEDS: ezetimibe 10mg tablet PO SCH (08:00)
[2023-04-07] MEDS: docusate sod 100mg capsule PO SCH ×2 (08:00→20:40)
[2023-04-07] MEDS: K and/or MAG REPLACEMENT MC SCH ×2 (08:00→20:00)
[2023-04-07] MEDS: atorvastatin 20mg tablet PO SCH (08:17)
[2023-04-07] MEDS: lisinopril 10 MG tablet PO SCH (08:17)
[2023-04-07] MEDS: clopidogrel 75mg tablet PO SCH (08:17)
[2023-04-07] MEDS: apixaban 5mg tablet PO SCH ×2 (08:17→20:40)
[2023-04-07] MEDS: pantoprazole 40mg Tablet.DR PO SCH (08:17)
[2023-04-07] MEDS: HYDROcodone/acetaminophen 10/325mg tab PO PRN ×4 (08:18→23:51)
[2023-04-07 09:15] LABS: HEMATOCRIT 24.7 % (42.0-52.0); HEMOGLOBIN 8.5 g/dl (14.0-17.9); MEAN CORPUSCULAR HEMOGLOBIN 31.3 PG (27.0-31.0); MEAN CORPUSCULAR HGB CONC 34.3 g/dL (33.0-36.5); MEAN CORPUSCULAR VOLUME 91.3 FL (78-98); MEAN PLATELET VOLUME 7.5 FL (7.4-10.4); PLATELET COUNT 313 X10'3 (140-440); RED CELL DISTRIBUTION WIDTH 17.2 % (11.5-14.5); WHITE BLOOD COUNT 8.6 X10'3 (4.5-11.0)
[2023-04-07] MEDS: VANCOmycin 1250MG/NS 250ml Bag 250 ML IV SCH ×2 (10:23→20:41)
[2023-04-07] MEDS: lamoTRIgine 100mg tablet PO SCH (20:40)
[2023-04-07] MEDS: traZODone 50mg tablet PO PRN (21:35)
[2023-04-08] VITALS (17 sets, daily range): BP systolic 92–154; BP diastolic 38–75; PULSE 76–95; RESP 12–25; O2SAT 96–100
[2023-04-08] MEDS: cefepime 2g/NS 100ml ADVANTAGE 100 ML IV SCH ×3 (00:46→14:59)
[2023-04-08] MEDS: normal saline 1000ml 1,000 ML IV SCH ×2 (01:55→14:24)
[2023-04-08 06:17] LABS: BASOPHILS # (AUTO) 0.1 X10'3 (0-0.2); EOSINOPHILS # (AUTO) 0.4 X10'3 (0-0.9); EOSINOPHILS % (AUTO) 5.1 % (0-6); HEMATOCRIT 23.2 % (42.0-52.0); HEMOGLOBIN 8.1 g/dl (14.0-17.9); LYMPHOCYTES # (AUTO) 1.6 X10'3 (1.1-4.8); LYMPHOCYTES % (AUTO) 20.4 % (21-51); MEAN CORPUSCULAR HEMOGLOBIN 31.9 PG (27.0-31.0); MEAN CORPUSCULAR HGB CONC 34.7 g/dL (33.0-36.5); MEAN CORPUSCULAR VOLUME 91.9 FL (78-98); MEAN PLATELET VOLUME 7.4 FL (7.4-10.4); MONOCYTES # (AUTO) 0.7 X10'3 (0-0.9); MONOCYTES % (AUTO) 9.4 % (2-12); NEUTROPHILS # (AUTO) 5.1 X10'3 (1.8-7.7); NEUTROPHILS % (AUTO) 64.1 % (42-75); PLATELET COUNT 344 X10'3 (140-440); RED BLOOD COUNT 2.52 X10'6 (4.70-6.10); RED CELL DISTRIBUTION WIDTH 17.3 % (11.5-14.5)
[2023-04-08 07:12] LABS: ALANINE AMINOTRANSFERASE 39 U/L (12-78); ALBUMIN 2.7 G/DL (3.4-5.0); ALBUMIN/GLOBULIN RATIO 0.8 (1.1-1.5); ALKALINE PHOSPHATASE 104 IU/L (46-116); ANION GAP 10 (8-16); ASPARTATE AMINO TRANSFERASE 35 U/L (10-37); BILIRUBIN,TOTAL 0.5 MG/DL (0.1-1.0); BLOOD UREA NITROGEN 6 MG/DL (7-18); CALCIUM 8.2 MG/DL (8.5-10.1); CHLORIDE 108 MMOL/L (99-107); CREATININE 0.86 MG/DL (0.60-1.10); GLUCOSE 146 MG/DL (70-104); POTASSIUM 3.6 MMOL/L (3.5-5.1); SODIUM 139 MMOL/L (135-145); TOTAL CARBON DIOXIDE 21.2 MMOL/L (24-32); TOTAL PROTEIN 5.9 G/DL (6.4-8.2); eCRCL 106 ML/MIN; eGFR 90 ML/MIN
[2023-04-08] MEDS: lactose-reduced food (Ensure Enlive) - 237ml bottle PO SCH ×3 (07:44→18:30)
[2023-04-08] MEDS: K and/or MAG REPLACEMENT MC SCH ×2 (07:46→20:00)
[2023-04-08] MEDS: docusate sod 100mg capsule PO SCH ×2 (07:47→20:00)
[2023-04-08] MEDS: apixaban 5mg tablet PO SCH ×2 (08:24→20:12)
[2023-04-08] MEDS: clopidogrel 75mg tablet PO SCH (08:24)
[2023-04-08] MEDS: pantoprazole 40mg Tablet.DR PO SCH (08:24)
[2023-04-08] MEDS: HYDROcodone/acetaminophen 10/325mg tab PO PRN ×2 (08:25→16:04)
[2023-04-08] MEDS: ezetimibe 10mg tablet PO SCH (08:25)
[2023-04-08] MEDS: atorvastatin 20mg tablet PO SCH (08:28)
[2023-04-08] MEDS ORDERED: VANCOmycin 1250MG/NS 250ml Bag 250 ML IV SCH (09:00)
[2023-04-08 12:18] LABS: ANISOCYTOSIS 1+; PLATELET ESTIMATE NORMAL; POLYCHROMASIA FEW; TOTAL CELLS COUNTED 100
[2023-04-08] MEDS: lamoTRIgine 100mg tablet PO SCH (20:13)
[2023-04-08] MEDS: traZODone 50mg tablet PO PRN (20:18)
[2023-04-09] MEDS: normal saline 1000ml 1,000 ML IV SCH (04:35)
[2023-04-09] MEDS: docusate sod 100mg capsule PO SCH (07:05)
[2023-04-09 07:45] LABS: BASOPHILS # (AUTO) 0.1 X10'3 (0-0.2); BASOPHILS % (AUTO) 0.7 % (0-1); EOSINOPHILS # (AUTO) 0.4 X10'3 (0-0.9); EOSINOPHILS % (AUTO) 5.2 % (0-6); HEMATOCRIT 23.3 % (42.0-52.0); LYMPHOCYTES # (AUTO) 1.5 X10'3 (1.1-4.8); LYMPHOCYTES % (AUTO) 17.6 % (21-51); MEAN CORPUSCULAR HEMOGLOBIN 31.7 PG (27.0-31.0); MEAN CORPUSCULAR HGB CONC 34.1 g/dL (33.0-36.5); MEAN CORPUSCULAR VOLUME 93.1 FL (78-98); MEAN PLATELET VOLUME 7.4 FL (7.4-10.4); MONOCYTES # (AUTO) 0.6 X10'3 (0-0.9); MONOCYTES % (AUTO) 7.6 % (2-12); NEUTROPHILS # (AUTO) 5.7 X10'3 (1.8-7.7); NEUTROPHILS % (AUTO) 68.9 % (42-75); PLATELET COUNT 415 X10'3 (140-440); RED BLOOD COUNT 2.51 X10'6 (4.70-6.10); WHITE BLOOD COUNT 8.2 X10'3 (4.5-11.0)
[2023-04-09 08:00] VITALS: RESP 18; O2SAT 98
[2023-04-09 08:00] LABS: ALANINE AMINOTRANSFERASE 34 U/L (12-78); ALBUMIN 2.5 G/DL (3.4-5.0); ALBUMIN/GLOBULIN RATIO 0.7 (1.1-1.5); ALKALINE PHOSPHATASE 104 IU/L (46-116); ANION GAP 9 (8-16); ASPARTATE AMINO TRANSFERASE 28 U/L (10-37); BILIRUBIN,TOTAL 0.5 MG/DL (0.1-1.0); BLOOD UREA NITROGEN 7 MG/DL (7-18); BUN/CREATININE RATIO 8.1 (10.0-20.0); CALCIUM 8.7 MG/DL (8.5-10.1); CHLORIDE 108 MMOL/L (99-107); CREATININE 0.86 MG/DL (0.60-1.10); GLUCOSE 150 MG/DL (70-104); POTASSIUM 3.4 MMOL/L (3.5-5.1); SODIUM 139 MMOL/L (135-145); TOTAL CARBON DIOXIDE 21.8 MMOL/L (24-32); TOTAL PROTEIN 6.1 G/DL (6.4-8.2); eCRCL 106 ML/MIN; eGFR 90 ML/MIN
[2023-04-09] MEDS: K and/or MAG REPLACEMENT MC SCH (08:00)
[2023-04-09] MEDS: pantoprazole 40mg Tablet.DR PO SCH (08:45)
[2023-04-09] MEDS: apixaban 5mg tablet PO SCH (08:46)
[2023-04-09] MEDS: clopidogrel 75mg tablet PO SCH (08:46)
[2023-04-09] MEDS: atorvastatin 20mg tablet PO SCH (08:46)
[2023-04-09] MEDS: ezetimibe 10mg tablet PO SCH (08:46)
[2023-04-09] MEDS: HYDROcodone/acetaminophen 10/325mg tab PO PRN (08:46)
[2023-04-09] MEDS: morphine 2 MG/ML inj. syringe IV PRN (10:39)
[2023-04-09] MEDS ORDERED: APIX5TAB3 PO (12:57)
[2023-04-09] MEDS ORDERED: CLOP75TA34 PO (12:57)
[2023-04-09 15:00] VITALS: BP 128/70; PULSE 70; RESP 20; TEMP 98.6; O2SAT 97
== END 2023-04-09 16:15 | disposition home or self-care (01) | DRG 181 ==
LOC: ER 15:05 → ED HOLD 16:58 → EDBEDREQ 20:27 → ORTHO 4S 21:10 → CICU 2S 03-30 14:30 → ORTHO 4S 04-04 06:50 → CICU 2S 04-06 18:13 → PCU 3S 04-08 17:32
PROVIDERS: ADMIT Internal Medicine; ATTEND Internal Medicine
PROC: 3E05317 Introduction of Other Thrombolytic into Peripheral Artery, Percutaneous Approach (ICD-10-PCS; principal; 2023-03-30)
PROC: 04CL3ZZ Extirpation of Matter from Left Femoral Artery, Percutaneous Approach (ICD-10-PCS; 2023-03-30)
PROC: 3E05317 Introduction of Other Thrombolytic into Peripheral Artery, Percutaneous Approach (ICD-10-PCS; 2023-03-31)
PROC: B41G1ZZ Fluoroscopy of Left Lower Extremity Arteries using Low Osmolar Contrast (ICD-10-PCS; 2023-03-31)
PROC: 04CL3ZZ Extirpation of Matter from Left Femoral Artery, Percutaneous Approach (ICD-10-PCS; 2023-04-01)
PROC: 3E05317 Introduction of Other Thrombolytic into Peripheral Artery, Percutaneous Approach (ICD-10-PCS; 2023-04-01)
PROC: B41G1ZZ Fluoroscopy of Left Lower Extremity Arteries using Low Osmolar Contrast (ICD-10-PCS; 2023-04-01)
PROC: 04WY3JZ Revision of Synthetic Substitute in Lower Artery, Percutaneous Approach (ICD-10-PCS; 2023-04-01)
PROC: 04UL0JZ Supplement Left Femoral Artery with Synthetic Substitute, Open Approach (ICD-10-PCS; 2023-04-01)
PROC: B42G1ZZ Computerized Tomography (CT Scan) of Left Lower Extremity Arteries using Low Osmolar Contrast (ICD-10-PCS; 2023-04-02)
PROC: B41C1ZZ Fluoroscopy of Pelvic Arteries using Low Osmolar Contrast (ICD-10-PCS; 2023-04-06)
PROC: B3281ZZ Computerized Tomography (CT Scan) of Bilateral Internal Carotid Arteries using Low Osmolar Contrast (ICD-10-PCS; 2023-04-06)
PROC: B42G1ZZ Computerized Tomography (CT Scan) of Left Lower Extremity Arteries using Low Osmolar Contrast (ICD-10-PCS; 2023-04-06)
PROC: 04WY0JZ Revision of Synthetic Substitute in Lower Artery, Open Approach (ICD-10-PCS; 2023-04-06)
PROC: 30233N1 Transfusion of Nonautologous Red Blood Cells into Peripheral Vein, Percutaneous Approach (ICD-10-PCS; 2023-04-06)
PROC: 04CL0ZZ Extirpation of Matter from Left Femoral Artery, Open Approach (ICD-10-PCS; 2023-04-07)
PROC: 04UL0JZ Supplement Left Femoral Artery with Synthetic Substitute, Open Approach (ICD-10-PCS; 2023-04-07)
DX: T82.868A Thrombosis due to vascular prosthetic devices, implants and grafts, initial encounter (principal); N17.9 Acute kidney failure, unspecified; E87.1 Hypo-osmolality and hyponatremia; D72.829 Elevated white blood cell count, unspecified; I73.9 Peripheral vascular disease, unspecified; J44.9 Chronic obstructive pulmonary disease, unspecified; G62.9 Polyneuropathy, unspecified; N18.9 Chronic kidney disease, unspecified; F32.A Depression, unspecified; I12.9 Hypertensive chronic kidney disease with stage 1 through stage 4 chronic kidney disease, or unspecified chronic kidney disease; K21.9 Gastro-esophageal reflux disease without esophagitis; Y83.8 Other surgical procedures as the cause of abnormal reaction of the patient, or of later complication, without mention of misadventure at the time of the procedure; E78.00 Pure hypercholesterolemia, unspecified; Z79.82 Long term (current) use of aspirin; Z91.030 Bee allergy status; Z88.8 Allergy status to other drugs, medicaments and biological substances; Z79.899 Other long term (current) drug therapy; Z87.891 Personal history of nicotine dependence; Z85.01 Personal history of malignant neoplasm of esophagus; Z82.49 Family history of ischemic heart disease and other diseases of the circulatory system; Y92.89 Other specified places as the place of occurrence of the external cause
CPT/HCPCS: 36160; 36246; 36415; 36430; 37184; 37211; 37213; 37214; 71045; 73206; 73590; 73706; 74176; 75710; 75736; 76000; 76937; 77002; 80048; 80053; 80061; 80076; 80202; 82150; 82948; 83036; 83605; 83690; 83735; 84100; 84145; 85007; 85025; 85027; 85384; 85610; 85730; 86885; 86900; 86901; 86920; 87040; 87070; 87075; 87081; 90686; 90732; 93005; 93922; 93926; 93970; 97161; 97530; 99152; 99153; 99285; A4333; A4349; A4421; A4615; A4618; A4620; A6212; A6213; A6258; A6402; A6449; A6455; A7000; C1729; C1751; C1757; C1758; C1760; C1768; C1769; C1887; C1894; G0269; G0378; J0131; J0690; J0692; J0780; J1100; J1170; J1200; J1644; J2060; J2175; J2250; J2270; J2274; J2405; J2704; J2710; J2720; J2997; J3010; J3370; J3490; J7030; J7040; J7050; J7120; P9016; P9045; Q9967

== ENCOUNTER 2023-05-03 16:00 | Inpatient (IN) | payer MEDICAID ==
[~2023-05-03] VITALS: Ht 190.5 cm; Wt 90.0 kg
[~2023-05-03 16:00] MED LIST changes: +APIX5TAB3 PO; +CLOP75TA34 PO; -HYDR-3965 PO; -LIDO35.4 TOP; -LISI20TA28 PO; +rocuronium 10mg/ml inj IV ONE
[2023-05-03] MEDS ORDERED: magnesium hydroxide 30ml (MOM) UD suspension PO PRN (18:05)
[2023-05-03] MEDS ORDERED: acetaminophen 325mg tablet PO PRN ×2 (18:05)
[2023-05-03] MEDS ORDERED: magnesium 4gm in 100ml NS 100 ML IV PRN (18:05)
[2023-05-03] MEDS ORDERED: magnesium Cl slow-release 64mg tablet PO PRN (18:05)
[2023-05-03] MEDS ORDERED: potassium Cl 40MEQ/1/2NS 520ml 520 ML IV PRN (18:05)
[2023-05-03] MEDS ORDERED: metoclopramide 5 mg/ml inj IV PRN (18:05)
[2023-05-03] MEDS ORDERED: mag hydrox/Alum hydrox/simeth 30ml oral suspension PO PRN (18:05)
[2023-05-03] MEDS ORDERED: potassium Cl 20 mEq SR tablet PO PRN ×2 (18:05)
[2023-05-03] MEDS: normal saline 1000ml 1,000 ML IV SCH (18:05)
[2023-05-03] MEDS ORDERED: HYDROcodone/acetaminophen 5mg/325mg tablet PO PRN (18:05)
[2023-05-03] MEDS ORDERED: magnesium 2GM in 50ml NS 50 ML IV PRN (18:05)
[2023-05-03] MEDS ORDERED: HYDROmorphone/PF 0.2 MG/ML SYRINGE IV PRN (18:05)
[2023-05-03] MEDS ORDERED: ondansetron/PF 4mg/2ml inj IV PRN (18:05)
[2023-05-03] MEDS ORDERED: acetaminophen 650mg rectal suppository RC PRN (18:05)
[2023-05-03] MEDS ORDERED: bisacodyl 10mg suppository rectal RC PRN (18:05)
[2023-05-03] MEDS ORDERED: ondansetron 4mg rapidly disintigrating tab PO PRN (18:05)
[2023-05-03 18:21] VITALS: BP 139/97; PULSE 98; RESP 16; TEMP 97.3; O2SAT 100
[2023-05-03] MEDS: K and/or MAG REPLACEMENT MC SCH (20:00)
[2023-05-03] MEDS: docusate sod 100mg capsule PO SCH (20:00)
[2023-05-03 20:46] LABS: BASOPHILS % (AUTO) 0.3 % (0-1); EOSINOPHILS # (AUTO) 0.1 X10'3 (0-0.9); EOSINOPHILS % (AUTO) 1.3 % (0-6); HEMATOCRIT 34.1 % (42.0-52.0); HEMOGLOBIN 10.9 g/dl (14.0-17.9); LYMPHOCYTES # (AUTO) 0.5 X10'3 (1.1-4.8); LYMPHOCYTES % (AUTO) 6.6 % (21-51); MEAN CORPUSCULAR HEMOGLOBIN 28.9 PG (27.0-31.0); MEAN CORPUSCULAR HGB CONC 32.1 g/dL (33.0-36.5); MEAN PLATELET VOLUME 7.5 FL (7.4-10.4); MONOCYTES # (AUTO) 0.4 X10'3 (0-0.9); MONOCYTES % (AUTO) 5.3 % (2-12); NEUTROPHILS # (AUTO) 6.2 X10'3 (1.8-7.7); NEUTROPHILS % (AUTO) 86.5 % (42-75); PLATELET COUNT 357 X10'3 (140-440); RED BLOOD COUNT 3.79 X10'6 (4.70-6.10); WHITE BLOOD COUNT 7.2 X10'3 (4.5-11.0)
[2023-05-03 21:00] LABS: APTT 26 SECONDS (22-32); INR 0.9 INR; PROTHROMBIN TIME 10.2 SECONDS (9.0-12.0)
[2023-05-03] MEDS ORDERED: temazepam 15mg capsule PO PRN (21:00)
[2023-05-03 21:01] LABS: ANION GAP 10 (8-16); BLOOD UREA NITROGEN 13 MG/DL (7-18); CHLORIDE 97 MMOL/L (99-107); GLUCOSE 168 MG/DL (70-104); POTASSIUM 3.5 MMOL/L (3.5-5.1); SODIUM 132 MMOL/L (135-145); TOTAL CARBON DIOXIDE 25.4 MMOL/L (24-32)
[2023-05-03 21:02] LABS: ALANINE AMINOTRANSFERASE 19 U/L (12-78); ALBUMIN 3.2 G/DL (3.4-5.0); ALBUMIN/GLOBULIN RATIO 0.7 (1.1-1.5); ALKALINE PHOSPHATASE 165 IU/L (46-116); ASPARTATE AMINO TRANSFERASE 13 U/L (10-37); BILIRUBIN,TOTAL 0.6 MG/DL (0.1-1.0); BUN/CREATININE RATIO 13.3 (10.0-20.0); CALCIUM 8.3 MG/DL (8.5-10.1); CREATININE 0.98 MG/DL (0.60-1.10); MAGNESIUM 2.1 MG/DL (1.5-2.4); PHOSPHORUS 3.7 MG/DL (2.3-4.5); TOTAL PROTEIN 7.9 G/DL (6.4-8.2); eGFR 78 ML/MIN
[2023-05-03] MEDS: HYDROcodone/acetaminophen 10/325mg tab PO PRN (21:58)
[2023-05-03 22:00] VITALS: BP 116/86; PULSE 99; RESP 16; TEMP 98; O2SAT 99
[2023-05-03] MEDS: traZODone 50mg tablet PO SCH (23:24)
[2023-05-03] MEDS: pregabalin 75mg capsule PO SCH (23:24)
[2023-05-04] VITALS (9 sets, daily range): BP systolic 85–130; BP diastolic 50–97; PULSE 72–156; RESP 14–18; TEMP 97.4–98.2; O2SAT 98–100
[2023-05-04] MEDS: piperacillin/tazo 3.375gm/50ml 50 ML IV SCH ×4 (00:25→23:54)
[2023-05-04] MEDS: normal saline 1000ml 1,000 ML IV SCH ×3 (04:08→23:54)
[2023-05-04] MEDS: pregabalin 75mg capsule PO SCH ×2 (06:35→20:00)
[2023-05-04 06:36] LABS: BASOPHILS % (AUTO) 0.5 % (0-1); EOSINOPHILS # (AUTO) 0.1 X10'3 (0-0.9); EOSINOPHILS % (AUTO) 2.2 % (0-6); HEMATOCRIT 29.7 % (42.0-52.0); HEMOGLOBIN 9.8 g/dl (14.0-17.9); LYMPHOCYTES # (AUTO) 0.7 X10'3 (1.1-4.8); LYMPHOCYTES % (AUTO) 10.8 % (21-51); MEAN CORPUSCULAR HEMOGLOBIN 29.8 PG (27.0-31.0); MEAN CORPUSCULAR HGB CONC 33.1 g/dL (33.0-36.5); MEAN PLATELET VOLUME 7.5 FL (7.4-10.4); MONOCYTES # (AUTO) 0.5 X10'3 (0-0.9); MONOCYTES % (AUTO) 7.4 % (2-12); NEUTROPHILS # (AUTO) 4.8 X10'3 (1.8-7.7); NEUTROPHILS % (AUTO) 79.1 % (42-75); PLATELET COUNT 302 X10'3 (140-440); RED CELL DISTRIBUTION WIDTH 16.8 % (11.5-14.5); WHITE BLOOD COUNT 6.1 X10'3 (4.5-11.0)
[2023-05-04] MEDS: HYDROcodone/acetaminophen 10/325mg tab PO PRN (06:36)
[2023-05-04 06:47] LABS: ALANINE AMINOTRANSFERASE 16 U/L (12-78); ALBUMIN 2.7 G/DL (3.4-5.0); ALBUMIN/GLOBULIN RATIO 0.6 (1.1-1.5); ALKALINE PHOSPHATASE 151 IU/L (46-116); ANION GAP 8 (8-16); ASPARTATE AMINO TRANSFERASE 12 U/L (10-37); BILIRUBIN,TOTAL 0.6 MG/DL (0.1-1.0); BLOOD UREA NITROGEN 11 MG/DL (7-18); BUN/CREATININE RATIO 11.6 (10.0-20.0); CALCIUM 8.9 MG/DL (8.5-10.1); CHLORIDE 103 MMOL/L (99-107); CREATININE 0.95 MG/DL (0.60-1.10); GLUCOSE 150 MG/DL (70-104); POTASSIUM 3.8 MMOL/L (3.5-5.1); SODIUM 136 MMOL/L (135-145); TOTAL CARBON DIOXIDE 25.4 MMOL/L (24-32); TOTAL PROTEIN 6.9 G/DL (6.4-8.2); eCRCL 96 ML/MIN; eGFR 80 ML/MIN
[2023-05-04] MEDS: K and/or MAG REPLACEMENT MC SCH ×2 (08:00→20:00)
[2023-05-04] MEDS: docusate sod 100mg capsule PO SCH ×2 (08:00→20:00)
[2023-05-04 09:21] LABS: CHOL/HDL RATIO 6.3 (0.00-4.99); CHOLESTEROL 215 MG/DL (0-200); HDL CHOLESTEROL 34 MG/DL (35-60); LDL CHOLESTEROL 148 MG/DL (50-100); TRIGLYCERIDES 109 MG/DL (20-135)
[2023-05-04] MEDS: HYDROmorphone inj. 0.5 MG/0.5 ML DISP.SYRIN IV PRN ×2 (11:34→15:58)
[2023-05-04] MEDS: vancomycin/NS 1 GM ADD-VANTAGE 250 ML IV SCH ×2 (14:16→23:54)
[2023-05-04] MEDS ORDERED: LIDOcaine 1%/PF 5ML 10 MG/ML VIAL ONE (18:08)
[2023-05-04] MEDS ORDERED: heparin 10,000 units/1 ML INJ ONE (18:24)
[2023-05-04] MEDS ORDERED: iohexol 300 MG/1 ML 50ml polymer ONE (18:25)
[2023-05-04] MEDS ORDERED: meperidine/PF 25mg/ml syringe IV PRN ×2 (18:40)
[2023-05-04] MEDS ORDERED: ondansetron/PF 4mg/2ml inj IV PRN (18:40)
[2023-05-04] MEDS ORDERED: proCHLORperazine 10 MG/2 ml inj IV PRN (18:40)
[2023-05-04] MEDS ORDERED: morphine 2 MG/ML inj. syringe IV PRN (18:40)
[2023-05-04] MEDS ORDERED: labetalol 20mg/4ml (5mg/ml) syringe IV PRN (18:40)
[2023-05-04] MEDS ORDERED: morphine 4 MG/ML inj SYRINge IV PRN (18:40)
[2023-05-04] MEDS ORDERED: hydrALAZINE 20mg/ml inj. IV PRN (18:40)
[2023-05-04] MEDS ORDERED: acetaminophen 1,000mg/100ml IV 100 ML IV ONE (18:40)
[2023-05-04] MEDS ORDERED: ringers solution, lacted 1,000 ML IV SCH (18:40)
[2023-05-04] MEDS ORDERED: LIDOcaine 2% (20mg/ml) 5ml vial ONE ×2 (18:45→19:46)
[2023-05-04] MEDS ORDERED: rocuronium 10mg/ml inj IV ONE ×2 (18:45→19:46)
[2023-05-04] MEDS ORDERED: propofol inj 20 ML IV ONE ×2 (18:45→19:46)
[2023-05-04] MEDS ORDERED: midazolam 1 mg/ML 2ml injection ONE (18:46)
[2023-05-04] MEDS ORDERED: fentaNYL /PF 50mcg/ml 5ml ampule ONE (18:47)
[2023-05-04] MEDS ORDERED: sevoflurane 250ml liquid IH ONE (18:48)
[2023-05-04] MEDS ORDERED: albumin (Human) 5% 250ml BOTTLE IV ONE (18:48)
[2023-05-04] MEDS ORDERED: ePHEDrine 50MG/ML INJ. ONE ×2 (19:46→21:24)
[2023-05-04] MEDS ORDERED: phenylephrine 10mg/ml inj. -priapism dosing ONE ×2 (19:46→21:24)
[2023-05-04] MEDS ORDERED: 0.9 % SODIUM CHLORIDE 10 ML VIAL ONE ×8 (19:46→21:24)
[2023-05-04] MEDS ORDERED: VANCOmycin 1250MG/NS 250ml Bag 250 ML IV SCH (20:00)
[2023-05-04] MEDS ORDERED: DESMOPRESSIN IV ONE ×2 (20:10)
[2023-05-04] MEDS ORDERED: NORMAL SALINE IV ONE ×2 (20:10)
[2023-05-04] MEDS ORDERED: dexamethasone sod phosphate 4mg/ml inj. ONE (20:29)
[2023-05-04] MEDS ORDERED: ondansetron/PF 4mg/2ml inj ONE (20:29)
[2023-05-04] MEDS: traZODone 50mg tablet PO SCH (21:00)
[2023-05-04] MEDS ORDERED: NORepinephrine 1 mg/ml inj IV ONE ×2 (21:10→21:11)
[2023-05-04] MEDS ORDERED: protamine sulfate 10mg/ml inj. ONE (21:14)
[2023-05-04] MEDS ORDERED: heparin 1,000unit/ml 10ml vial 10 ML ONE (21:24)
[2023-05-04] MEDS ORDERED: albumin (Human) 5% 250ml 250 ML IV ONE ×3 (21:42→22:41)
[2023-05-04] MEDS ORDERED: midazolam 1 mg/ML 2ml injection IV PRN (21:45)
[2023-05-04] MEDS ORDERED: fentaNYL/PF 50MCG/1 ML 2ML syringe IV PRN (21:45)
[2023-05-04] MEDS ORDERED: midazolam 100mg in NS 100ml 100 ML IV PRN (22:45)
[2023-05-04 22:55] LABS: ABG BASE EXCESS -9.7 mmol/L (-2.0-2.0); ABG HCO3 16.1 mmol/L (22.0-26.0); ABG OXYGEN SATURATION 99.8 % (94-97); ABG PCO2 (T) 35.1 mmHg (35.0-48.0); ABG PH (T) 7.282 (7.340-7.440); ABG PO2 (T) 458.1 mmHg (75.0-100.0); FCOHb 0.3 % (0.0-3.9); FHHb 0.2 % (0.0-5.0); FMetHb 0.1 % (0.0-1.5); FO2Hb 99.4 % (94-97); PATIENT TEMPERATURE 37.3; PEEP 5 cm H2O; RESPIRATORY RATE 14 b/min; TIDAL VOLUME 600 mL; TOTAL HEMOGLOBIN 6.4 G/dl (14.0-17.9)
[2023-05-04] MEDS ORDERED: PHENYLephrine 10mg/ml inj. 50 MG in normal saline 250ml IV soln 245 ML IV SCH (22:55)
[2023-05-04] MEDS ORDERED: vasopressin inj. 40 UNIT in normal saline 50ml IV soln 38 ML IV SCH (23:00)
[2023-05-04 23:23] LABS: MEAN PLATELET VOLUME 7.3 FL (7.4-10.4); WHITE BLOOD COUNT 10.9 X10'3 (4.5-11.0)
[2023-05-04 23:26] LABS: MEAN CORPUSCULAR HEMOGLOBIN 29.9 PG (27.0-31.0); MEAN CORPUSCULAR HGB CONC 32.1 g/dL (33.0-36.5); MEAN CORPUSCULAR VOLUME 93.2 FL (78-98); PLATELET COUNT 243 X10'3 (140-440); RED BLOOD COUNT 1.67 X10'6 (4.70-6.10)
[2023-05-04 23:30] LABS: APTT 24 SECONDS (22-32); INR 1.1 INR
[2023-05-04 23:33] LABS: PROTHROMBIN TIME 11.9 SECONDS (9.0-12.0)
[2023-05-04 23:36] LABS: HEMATOCRIT 15.6 % (42.0-52.0)
[2023-05-04 23:38] LABS: ALANINE AMINOTRANSFERASE 8 U/L (12-78); ALBUMIN 2.5 G/DL (3.4-5.0); ALBUMIN/GLOBULIN RATIO 1.1 (1.1-1.5); ALKALINE PHOSPHATASE 82 IU/L (46-116); ANION GAP 13 (8-16); ASPARTATE AMINO TRANSFERASE 11 U/L (10-37); BILIRUBIN,TOTAL 0.7 MG/DL (0.1-1.0); BLOOD UREA NITROGEN 8 MG/DL (7-18); BUN/CREATININE RATIO 13.6 (10.0-20.0); CHLORIDE 113 MMOL/L (99-107); CREATININE 0.59 MG/DL (0.60-1.10); GLUCOSE 193 MG/DL (70-104); POTASSIUM 3.1 MMOL/L (3.5-5.1); SODIUM 142 MMOL/L (135-145); TOTAL PROTEIN 4.7 G/DL (6.4-8.2); eCRCL 155 ML/MIN; eGFR > 90 ML/MIN
[2023-05-04 23:42] LABS: CALCIUM 5.6 MG/DL (8.5-10.1)
[2023-05-04] MEDS ORDERED: CALCIUM GLUC 1gm/50ml NACL,iso 50 ML IV ONE (23:45)
[2023-05-04] MEDS: propofol 1000mg/100ml bottle 100 ML IV SCH (23:56)
[2023-05-05] VITALS (40 sets, daily range): BP systolic 93–140; BP diastolic 57–98; PULSE 54–151; RESP 9–24; TEMP 99.2; O2SAT 99–100
[2023-05-05] MEDS ORDERED: gelatin sponge, absorbable (Gelfoam 100) sponge TP ONE
[2023-05-05] MEDS ORDERED: potassium Cl 40MEQ/270ML bag 270 ML IV PRN
[2023-05-05] MEDS ORDERED: magnesium 2GM in 50ml NS 50 ML IV PRN
[2023-05-05] MEDS ORDERED: rocuronium 10mg/ml inj IV ONE (00:05)
[2023-05-05] MEDS ORDERED: midazolam 1 mg/ML 2ml injection IV ONE (00:05)
[2023-05-05] MEDS ORDERED: NORepinephrine 8mg/ 250ml NS 250 ML IV ONE (01:59)
[2023-05-05] MEDS: NORepinephrine 8mg/ 250ml NS 250 ML IV SCH ×4 (02:03→16:01)
[2023-05-05 02:24] LABS: ANISOCYTOSIS 1+; MICROCYTOSIS 1+; PLATELET ESTIMATE NORMAL; POLYCHROMASIA FEW; TOTAL CELLS COUNTED 100
[2023-05-05 02:25] LABS: HYPOCHROMASIA 1+
[2023-05-05 03:11] LABS: BASOPHILS % (AUTO) 0.1 % (0-1); EOSINOPHILS % (AUTO) 0 % (0-6); HEMATOCRIT 31.2 % (42.0-52.0); HEMOGLOBIN 10.2 g/dl (14.0-17.9); LYMPHOCYTES # (AUTO) 0.2 X10'3 (1.1-4.8); LYMPHOCYTES % (AUTO) 1.3 % (21-51); MEAN CORPUSCULAR HEMOGLOBIN 30.1 PG (27.0-31.0); MEAN CORPUSCULAR HGB CONC 32.9 g/dL (33.0-36.5); MEAN CORPUSCULAR VOLUME 91.7 FL (78-98); MEAN PLATELET VOLUME 7.5 FL (7.4-10.4); MONOCYTES # (AUTO) 0.5 X10'3 (0-0.9); MONOCYTES % (AUTO) 4.2 % (2-12); NEUTROPHILS # (AUTO) 11.9 X10'3 (1.8-7.7); NEUTROPHILS % (AUTO) 94.4 % (42-75); PLATELET COUNT 260 X10'3 (140-440); RED CELL DISTRIBUTION WIDTH 14.9 % (11.5-14.5); WHITE BLOOD COUNT 12.6 X10'3 (4.5-11.0)
[2023-05-05 03:22] LABS: ALANINE AMINOTRANSFERASE 13 U/L (12-78); ALKALINE PHOSPHATASE 108 IU/L (46-116); ANION GAP 17 (8-16); ASPARTATE AMINO TRANSFERASE 13 U/L (10-37); BILIRUBIN,TOTAL 2.1 MG/DL (0.1-1.0); BLOOD UREA NITROGEN 9 MG/DL (7-18); CHLORIDE 106 MMOL/L (99-107); GLUCOSE 325 MG/DL (70-104); MAGNESIUM 1.7 MG/DL (1.5-2.4); POTASSIUM 4.6 MMOL/L (3.5-5.1); SODIUM 137 MMOL/L (135-145); TOTAL PROTEIN 6.1 G/DL (6.4-8.2); TRIGLYCERIDES 127 MG/DL (20-135); eCRCL 92 ML/MIN; eGFR 76 ML/MIN
[2023-05-05 03:48] LABS: TOTAL CARBON DIOXIDE 14.1 MMOL/L (24-32)
[2023-05-05 03:55] LABS: ABG BASE EXCESS -12.9 mmol/L (-2.0-2.0); ABG OXYGEN SATURATION 99.5 % (94-97); ABG PCO2 (T) 30.5 mmHg (35.0-48.0); ABG PH (T) 7.249 (7.340-7.440); ABG PO2 (T) 277.6 mmHg (75.0-100.0); FCOHb 0.1 % (0.0-3.9); FHHb 0.5 % (0.0-5.0); FMetHb 0.3 % (0.0-1.5); FO2Hb 99.1 % (94-97); MODE SIMV 10/5; PATIENT TEMPERATURE 37.2; PEEP 5 cm H2O; RESPIRATORY RATE 12 b/min; TIDAL VOLUME 600 mL; TOTAL HEMOGLOBIN 11.6 G/dl (14.0-17.9)
[2023-05-05] MEDS: vancomycin/NS 1 GM ADD-VANTAGE 250 ML IV SCH ×3 (05:48→20:18)
[2023-05-05] MEDS: propofol 1000mg/100ml bottle 100 ML IV SCH ×2 (06:15→16:00)
[2023-05-05] MEDS: FENTANYL-0.9 % NACL/PF 100 ML IV PRN ×4 (07:25→21:16)
[2023-05-05] MEDS: K and/or MAG REPLACEMENT MC SCH ×2 (08:00→20:00)
[2023-05-05] MEDS ORDERED: albumin (Human) 5% 250ml 250 ML IV ONE ×4 (08:35)
[2023-05-05] MEDS: pregabalin 75mg capsule PO SCH ×2 (09:25→20:18)
[2023-05-05 09:32] LABS: ANION GAP 14 (8-16); BLOOD UREA NITROGEN 9 MG/DL (7-18); BUN/CREATININE RATIO 8.4 (10.0-20.0); CALCIUM 8.1 MG/DL (8.5-10.1); CHLORIDE 108 MMOL/L (99-107); CREATININE 1.07 MG/DL (0.60-1.10); GLUCOSE 344 MG/DL (70-104); POTASSIUM 5.2 MMOL/L (3.5-5.1); SODIUM 137 MMOL/L (135-145); eCRCL 86 ML/MIN; eGFR 70 ML/MIN
[2023-05-05 09:35] LABS: TOTAL CARBON DIOXIDE 14.8 MMOL/L (24-32)
[2023-05-05] MEDS: piperacillin/tazo 3.375gm/50ml 50 ML IV SCH ×3 (09:44→23:13)
[2023-05-05] MEDS ORDERED: VANCOMYCIN LEVEL IV ONE (12:30)
[2023-05-05] MEDS: normal saline 1000ml 1,000 ML IV SCH ×2 (12:31→20:05)
[2023-05-05] MEDS ORDERED: HYDR-3972 PO (15:06)
[2023-05-05] MEDS: traZODone 50mg tablet PO SCH (20:18)
[2023-05-05] MEDS: docusate sodium 100mg/10ml UD cup PO SCH (20:18)
[2023-05-06] VITALS (37 sets, daily range): BP systolic 94–158; BP diastolic 48–74; PULSE 56–106; RESP 8–18; TEMP 98–98.5; O2SAT 95–100
[2023-05-06] MEDS: propofol 1000mg/100ml bottle 100 ML IV SCH (00:05)
[2023-05-06] MEDS: NORepinephrine 8mg/ 250ml NS 250 ML IV SCH ×2 (00:05→10:13)
[2023-05-06] MEDS: mineral oil/petrolatum ophthal oint EACHEYE SCH ×4 (02:03→20:00)
[2023-05-06 02:39] LABS: BASOPHILS % (AUTO) 0.1 % (0-1); EOSINOPHILS % (AUTO) 0 % (0-6); HEMOGLOBIN 7.2 g/dl (14.0-17.9); LYMPHOCYTES # (AUTO) 0.3 X10'3 (1.1-4.8); LYMPHOCYTES % (AUTO) 4.5 % (21-51); MEAN CORPUSCULAR HEMOGLOBIN 30.1 PG (27.0-31.0); MEAN CORPUSCULAR HGB CONC 33.4 g/dL (33.0-36.5); MEAN CORPUSCULAR VOLUME 90.3 FL (78-98); MEAN PLATELET VOLUME 7.1 FL (7.4-10.4); MONOCYTES # (AUTO) 0.9 X10'3 (0-0.9); MONOCYTES % (AUTO) 13.2 % (2-12); NEUTROPHILS # (AUTO) 5.5 X10'3 (1.8-7.7); NEUTROPHILS % (AUTO) 82.2 % (42-75); PLATELET COUNT 139 X10'3 (140-440); RED BLOOD COUNT 2.37 X10'6 (4.70-6.10); RED CELL DISTRIBUTION WIDTH 15.4 % (11.5-14.5); WHITE BLOOD COUNT 6.7 X10'3 (4.5-11.0)
[2023-05-06 02:47] LABS: HEMATOCRIT 21.4 % (42.0-52.0)
[2023-05-06 03:24] LABS: ALANINE AMINOTRANSFERASE 9 U/L (12-78); ALBUMIN 3.3 G/DL (3.4-5.0); ALBUMIN/GLOBULIN RATIO 1.7 (1.1-1.5); ALKALINE PHOSPHATASE 73 IU/L (46-116); ANION GAP 10 (8-16); ASPARTATE AMINO TRANSFERASE 7 U/L (10-37); BILIRUBIN,TOTAL 0.7 MG/DL (0.1-1.0); BLOOD UREA NITROGEN 5 MG/DL (7-18); BUN/CREATININE RATIO 7.7 (10.0-20.0); CALCIUM 7.9 MG/DL (8.5-10.1); CHLORIDE 110 MMOL/L (99-107); CREATININE 0.65 MG/DL (0.60-1.10); GLUCOSE 208 MG/DL (70-104); MAGNESIUM 2.1 MG/DL (1.5-2.4); POTASSIUM 4.1 MMOL/L (3.5-5.1); SODIUM 142 MMOL/L (135-145); TOTAL CARBON DIOXIDE 21.7 MMOL/L (24-32); TOTAL PROTEIN 5.2 G/DL (6.4-8.2); eCRCL 141 ML/MIN; eGFR > 90 ML/MIN
[2023-05-06 03:41] LABS: ABG BASE EXCESS -6.1 mmol/L (-2.0-2.0); ABG HCO3 18.3 mmol/L (22.0-26.0); ABG PCO2 (T) 30.8 mmHg (35.0-48.0); ABG PO2 (T) 145.7 mmHg (75.0-100.0); ALLEN'S TEST Modified; FCOHb 0.4 % (0.0-3.9); FMetHb 0.3 % (0.0-1.5); FO2Hb 98.3 % (94-97); MODE VENT - CPAP; PATIENT TEMPERATURE 36.8; PEEP 5 cm H2O; TOTAL HEMOGLOBIN 7.3 G/dl (14.0-17.9)
[2023-05-06] MEDS: vancomycin/NS 1 GM ADD-VANTAGE 250 ML IV SCH ×3 (05:09→20:07)
[2023-05-06] MEDS: FENTANYL-0.9 % NACL/PF 100 ML IV PRN (05:09)
[2023-05-06] MEDS: normal saline 1000ml 1,000 ML IV SCH ×2 (06:05→13:25)
[2023-05-06] MEDS: docusate sodium 100mg/10ml UD cup PO SCH ×2 (07:21→20:00)
[2023-05-06] MEDS: pregabalin 75mg capsule PO SCH ×2 (07:21→20:06)
[2023-05-06] MEDS: piperacillin/tazo 3.375gm/50ml 50 ML IV SCH ×3 (07:21→23:49)
[2023-05-06] MEDS: K and/or MAG REPLACEMENT MC SCH ×2 (08:00→20:00)
[2023-05-06] MEDS ORDERED: VANCOMYCIN LEVEL IV ONE (12:30)
[2023-05-06] MEDS: traZODone 50mg tablet PO SCH (20:06)
[2023-05-06] MEDS: HYDROcodone/acetaminophen 10/325mg tab PO PRN ×2 (20:06→23:49)
[2023-05-07] VITALS (18 sets, daily range): BP systolic 113–153; BP diastolic 54–77; PULSE 70–100; RESP 12–18; TEMP 97.6–98; O2SAT 95–99
[2023-05-07] MEDS: mineral oil/petrolatum ophthal oint EACHEYE SCH ×2 (02:00→08:00)
[2023-05-07] MEDS: normal saline 1000ml 1,000 ML IV SCH ×2 (02:06→15:48)
[2023-05-07 02:46] LABS: BASOPHILS % (AUTO) 0.5 % (0-1); EOSINOPHILS % (AUTO) 0.7 % (0-6); HEMOGLOBIN 7.3 g/dl (14.0-17.9); LYMPHOCYTES # (AUTO) 0.5 X10'3 (1.1-4.8); LYMPHOCYTES % (AUTO) 12.3 % (21-51); MEAN CORPUSCULAR HEMOGLOBIN 29.5 PG (27.0-31.0); MEAN CORPUSCULAR HGB CONC 33.7 g/dL (33.0-36.5); MEAN CORPUSCULAR VOLUME 87.5 FL (78-98); MEAN PLATELET VOLUME 7.5 FL (7.4-10.4); MONOCYTES # (AUTO) 0.4 X10'3 (0-0.9); NEUTROPHILS # (AUTO) 3.1 X10'3 (1.8-7.7); NEUTROPHILS % (AUTO) 77.5 % (42-75); PLATELET COUNT 101 X10'3 (140-440); RED BLOOD COUNT 2.49 X10'6 (4.70-6.10); RED CELL DISTRIBUTION WIDTH 16.9 % (11.5-14.5)
[2023-05-07 03:02] LABS: ALANINE AMINOTRANSFERASE 12 U/L (12-78); ALBUMIN 2.6 G/DL (3.4-5.0); ALBUMIN/GLOBULIN RATIO 1.2 (1.1-1.5); ALKALINE PHOSPHATASE 74 IU/L (46-116); ANION GAP 11 (8-16); ASPARTATE AMINO TRANSFERASE 13 U/L (10-37); BILIRUBIN,TOTAL 0.6 MG/DL (0.1-1.0); BLOOD UREA NITROGEN 7 MG/DL (7-18); BUN/CREATININE RATIO 9.6 (10.0-20.0); CALCIUM 7.6 MG/DL (8.5-10.1); CHLORIDE 108 MMOL/L (99-107); CREATININE 0.73 MG/DL (0.60-1.10); GLUCOSE 136 MG/DL (70-104); MAGNESIUM 1.8 MG/DL (1.5-2.4); POTASSIUM 3.1 MMOL/L (3.5-5.1); SODIUM 141 MMOL/L (135-145); TOTAL PROTEIN 4.8 G/DL (6.4-8.2); eCRCL 125 ML/MIN; eGFR > 90 ML/MIN
[2023-05-07 03:05] LABS: HEMATOCRIT 21.8 % (42.0-52.0)
[2023-05-07] MEDS: vancomycin/NS 1 GM ADD-VANTAGE 250 ML IV SCH ×3 (05:07→21:37)
[2023-05-07] MEDS: docusate sodium 100mg/10ml UD cup PO SCH ×2 (07:59→20:00)
[2023-05-07] MEDS: HYDROcodone/acetaminophen 10/325mg tab PO PRN ×2 (08:00→21:47)
[2023-05-07] MEDS: pregabalin 75mg capsule PO SCH ×2 (08:00→21:39)
[2023-05-07] MEDS: piperacillin/tazo 3.375gm/50ml 50 ML IV SCH ×2 (08:01→15:43)
[2023-05-07] MEDS: K and/or MAG REPLACEMENT MC SCH ×2 (08:02→20:00)
[2023-05-07] MEDS: HYDROmorphone inj. 0.5 MG/0.5 ML DISP.SYRIN IV PRN (09:53)
[2023-05-07] MEDS ORDERED: IRON PO SCH (13:00)
[2023-05-07] MEDS ORDERED: MULTIVIT PO SCH (13:00)
[2023-05-07] MEDS ORDERED: MINERALS PO SCH (13:00)
[2023-05-07] MEDS ORDERED: VITAMIN K PO SCH (13:00)
[2023-05-07] MEDS ORDERED: FOLIC ACID PO SCH (13:00)
[2023-05-07] MEDS ORDERED: CALCIUM PO SCH (13:00)
[2023-05-07] MEDS ORDERED: non-formulary drug (Albuterol Sulfate (Ventolin Hfa) 1 PUFFS) IH PRN (16:50)
[2023-05-07] MEDS: ipratropium/albuterol 3ml nebule NEB SCH (20:36)
[2023-05-07] MEDS ORDERED: traZODone 50mg tablet PO SCH (21:00)
[2023-05-07] MEDS: fluticasone nasal spray 16GM bottle NS SCH (21:38)
[2023-05-07] MEDS: traZODone 50mg tablet PO SCH (21:39)
[2023-05-07] MEDS: busPIRone 15mg tablet PO SCH (21:39)
[2023-05-07] MEDS: lamoTRIgine 100mg tablet PO SCH (21:40)
[2023-05-08] VITALS (12 sets, daily range): BP systolic 110–157; BP diastolic 68–82; PULSE 78–110; RESP 15–23; TEMP 97.2–98.9; O2SAT 96–98
[2023-05-08] MEDS: piperacillin/tazo 3.375gm/50ml 50 ML IV SCH (02:23)
[2023-05-08] MEDS: HYDROcodone/acetaminophen 10/325mg tab PO PRN ×5 (02:23→23:04)
[2023-05-08] MEDS: vancomycin/NS 1 GM ADD-VANTAGE 250 ML IV SCH (05:04)
[2023-05-08 07:07] LABS: BASOPHILS % (AUTO) 0.8 % (0-1); EOSINOPHILS # (AUTO) 0.1 X10'3 (0-0.9); EOSINOPHILS % (AUTO) 2.3 % (0-6); HEMATOCRIT 24.5 % (42.0-52.0); HEMOGLOBIN 8.2 g/dl (14.0-17.9); LYMPHOCYTES # (AUTO) 0.4 X10'3 (1.1-4.8); LYMPHOCYTES % (AUTO) 12.7 % (21-51); MEAN CORPUSCULAR HEMOGLOBIN 29.9 PG (27.0-31.0); MEAN CORPUSCULAR HGB CONC 33.3 g/dL (33.0-36.5); MEAN CORPUSCULAR VOLUME 89.8 FL (78-98); MEAN PLATELET VOLUME 7.6 FL (7.4-10.4); MONOCYTES # (AUTO) 0.3 X10'3 (0-0.9); MONOCYTES % (AUTO) 7.9 % (2-12); NEUTROPHILS # (AUTO) 2.5 X10'3 (1.8-7.7); NEUTROPHILS % (AUTO) 76.3 % (42-75); PLATELET COUNT 122 X10'3 (140-440); RED BLOOD COUNT 2.72 X10'6 (4.70-6.10); RED CELL DISTRIBUTION WIDTH 16.3 % (11.5-14.5); WHITE BLOOD COUNT 3.3 X10'3 (4.5-11.0)
[2023-05-08 07:16] LABS: ALANINE AMINOTRANSFERASE 16 U/L (12-78); ALBUMIN 2.5 G/DL (3.4-5.0); ALKALINE PHOSPHATASE 93 IU/L (46-116); ANION GAP 9 (8-16); ASPARTATE AMINO TRANSFERASE 14 U/L (10-37); BILIRUBIN,TOTAL 0.7 MG/DL (0.1-1.0); BLOOD UREA NITROGEN 4 MG/DL (7-18); BUN/CREATININE RATIO 5.6 (10.0-20.0); CALCIUM 7.7 MG/DL (8.5-10.1); CHLORIDE 113 MMOL/L (99-107); CREATININE 0.71 MG/DL (0.60-1.10); GLUCOSE 131 MG/DL (70-104); POTASSIUM 3.3 MMOL/L (3.5-5.1); SODIUM 145 MMOL/L (135-145); TOTAL CARBON DIOXIDE 22.9 MMOL/L (24-32); TOTAL PROTEIN 5.1 G/DL (6.4-8.2); eCRCL 129 ML/MIN; eGFR > 90 ML/MIN
[2023-05-08] MEDS: fluticasone nasal spray 16GM bottle NS SCH ×2 (08:00→20:00)
[2023-05-08] MEDS: K and/or MAG REPLACEMENT MC SCH ×2 (08:00→20:00)
[2023-05-08] MEDS: docusate sodium 100mg/10ml UD cup PO SCH ×2 (08:00→20:00)
[2023-05-08] MEDS: ipratropium/albuterol 3ml nebule NEB SCH ×3 (08:25→21:00)
[2023-05-08] MEDS: levoFLOXACIN-Levaquin 750MG/D5 150 ML IV SCH (08:29)
[2023-05-08] MEDS: pantoprazole 40mg Tablet.DR PO SCH (08:30)
[2023-05-08] MEDS: atorvastatin 20mg tablet PO SCH (08:31)
[2023-05-08] MEDS: ezetimibe 10mg tablet PO SCH (08:32)
[2023-05-08] MEDS: busPIRone 15mg tablet PO SCH ×2 (08:32→20:00)
[2023-05-08] MEDS: buPROPion SR 150mg tablet PO SCH (08:32)
[2023-05-08] MEDS: pregabalin 75mg capsule PO SCH ×2 (08:33→20:00)
[2023-05-08] MEDS: multivitamins, therapeutics tablet PO SCH ×2 (08:33→20:00)
[2023-05-08] MEDS: linezolid 600mg/300ml PREMIX 300 ML IV SCH ×2 (10:25→20:00)
[2023-05-08] MEDS: HYDROmorphone inj. 0.5 MG/0.5 ML DISP.SYRIN IV PRN (20:51)
[2023-05-08] MEDS: lamoTRIgine 100mg tablet PO SCH (21:23)
[2023-05-08] MEDS: traZODone 50mg tablet PO SCH (23:06)
[2023-05-09] VITALS (11 sets, daily range): BP systolic 121–142; BP diastolic 57–85; PULSE 75–93; RESP 15–18; TEMP 98–98.9; O2SAT 97–98
[2023-05-09] MEDS: HYDROmorphone inj. 0.5 MG/0.5 ML DISP.SYRIN IV PRN ×4 (03:45→20:11)
[2023-05-09 06:10] LABS: BASOPHILS % (AUTO) 0.5 % (0-1); EOSINOPHILS # (AUTO) 0.1 X10'3 (0-0.9); EOSINOPHILS % (AUTO) 3.2 % (0-6); HEMATOCRIT 25.3 % (42.0-52.0); HEMOGLOBIN 8.5 g/dl (14.0-17.9); LYMPHOCYTES # (AUTO) 0.5 X10'3 (1.1-4.8); LYMPHOCYTES % (AUTO) 17.2 % (21-51); MEAN CORPUSCULAR HEMOGLOBIN 30.2 PG (27.0-31.0); MEAN CORPUSCULAR HGB CONC 33.7 g/dL (33.0-36.5); MEAN CORPUSCULAR VOLUME 89.8 FL (78-98); MEAN PLATELET VOLUME 7.6 FL (7.4-10.4); MONOCYTES # (AUTO) 0.4 X10'3 (0-0.9); MONOCYTES % (AUTO) 11.3 % (2-12); NEUTROPHILS # (AUTO) 2.2 X10'3 (1.8-7.7); NEUTROPHILS % (AUTO) 67.8 % (42-75); PLATELET COUNT 115 X10'3 (140-440); RED BLOOD COUNT 2.81 X10'6 (4.70-6.10); RED CELL DISTRIBUTION WIDTH 16.5 % (11.5-14.5); WHITE BLOOD COUNT 3.2 X10'3 (4.5-11.0)
[2023-05-09 06:36] LABS: ALANINE AMINOTRANSFERASE 14 U/L (12-78); ALBUMIN 2.6 G/DL (3.4-5.0); ALBUMIN/GLOBULIN RATIO 0.9 (1.1-1.5); ALKALINE PHOSPHATASE 117 IU/L (46-116); ANION GAP 11 (8-16); ASPARTATE AMINO TRANSFERASE 12 U/L (10-37); BILIRUBIN,TOTAL 0.4 MG/DL (0.1-1.0); BLOOD UREA NITROGEN 5 MG/DL (7-18); BUN/CREATININE RATIO 6.5 (10.0-20.0); CALCIUM 8.8 MG/DL (8.5-10.1); CHLORIDE 111 MMOL/L (99-107); CREATININE 0.77 MG/DL (0.60-1.10); GLUCOSE 120 MG/DL (70-104); POTASSIUM 3.6 MMOL/L (3.5-5.1); SODIUM 143 MMOL/L (135-145); TOTAL CARBON DIOXIDE 21.3 MMOL/L (24-32); TOTAL PROTEIN 5.6 G/DL (6.4-8.2); eCRCL 119 ML/MIN; eGFR > 90 ML/MIN
[2023-05-09] MEDS: fluticasone nasal spray 16GM bottle NS SCH (08:00)
[2023-05-09] MEDS: docusate sodium 100mg/10ml UD cup PO SCH ×2 (08:00→19:53)
[2023-05-09] MEDS: K and/or MAG REPLACEMENT MC SCH ×2 (08:00→20:00)
[2023-05-09] MEDS: ipratropium/albuterol 3ml nebule NEB SCH ×3 (08:07→20:25)
[2023-05-09] MEDS: pantoprazole 40mg Tablet.DR PO SCH (08:15)
[2023-05-09] MEDS: pregabalin 75mg capsule PO SCH ×2 (08:15→19:53)
[2023-05-09] MEDS: multivitamins, therapeutics tablet PO SCH ×2 (08:16→19:53)
[2023-05-09] MEDS: busPIRone 15mg tablet PO SCH ×2 (08:17→19:53)
[2023-05-09] MEDS: atorvastatin 20mg tablet PO SCH (08:17)
[2023-05-09] MEDS: buPROPion SR 150mg tablet PO SCH (08:18)
[2023-05-09] MEDS: ezetimibe 10mg tablet PO SCH (08:18)
[2023-05-09] MEDS: HYDROcodone/acetaminophen 10/325mg tab PO PRN ×3 (08:19→17:38)
[2023-05-09] MEDS: levoFLOXACIN-Levaquin 750MG/D5 150 ML IV SCH (08:25)
[2023-05-09] MEDS: linezolid 600mg/300ml PREMIX 300 ML IV SCH ×2 (08:26→20:04)
[2023-05-09] MEDS ORDERED: aspirin 81mg, enteric-coated 1 TAB TABLET.DR PO ONE (08:40)
[2023-05-09] MEDS: clopidogrel 75mg tablet PO SCH (10:30)
[2023-05-09] MEDS: traZODone 50mg tablet PO SCH (20:05)
[2023-05-09] MEDS: lamoTRIgine 100mg tablet PO SCH (20:12)
[2023-05-09] MEDS: budesonide 0.5mg/2ml UD nebule IH SCH (20:25)
[2023-05-10] VITALS (13 sets, daily range): BP systolic 95–134; BP diastolic 52–75; PULSE 68–104; RESP 16–20; TEMP 97.2–98.3; O2SAT 96–99
[2023-05-10] MEDS: HYDROcodone/acetaminophen 10/325mg tab PO PRN ×4 (00:11→19:41)
[2023-05-10] MEDS: budesonide 0.5mg/2ml UD nebule IH SCH ×2 (07:58→20:17)
[2023-05-10] MEDS: ipratropium/albuterol 3ml nebule NEB SCH ×3 (07:59→20:17)
[2023-05-10] MEDS: K and/or MAG REPLACEMENT MC SCH ×2 (08:00→20:00)
[2023-05-10] MEDS: docusate sodium 100mg/10ml UD cup PO SCH ×2 (08:00→19:42)
[2023-05-10 08:54] LABS: ABSOLUTE RETICS # 93300 /CUMM (23000-93000); BASOPHILS % (AUTO) 0.5 % (0-1); EOSINOPHILS # (AUTO) 0.1 X10'3 (0-0.9); EOSINOPHILS % (AUTO) 2.7 % (0-6); HEMATOCRIT 26.2 % (42.0-52.0); HEMOGLOBIN 8.7 g/dl (14.0-17.9); LYMPHOCYTES # (AUTO) 0.5 X10'3 (1.1-4.8); LYMPHOCYTES % (AUTO) 13.9 % (21-51); MEAN CORPUSCULAR HEMOGLOBIN 29.9 PG (27.0-31.0); MEAN CORPUSCULAR HGB CONC 33.1 g/dL (33.0-36.5); MEAN CORPUSCULAR VOLUME 90.6 FL (78-98); MEAN PLATELET VOLUME 7.9 FL (7.4-10.4); MONOCYTES # (AUTO) 0.4 X10'3 (0-0.9); MONOCYTES % (AUTO) 10.8 % (2-12); NEUTROPHILS # (AUTO) 2.8 X10'3 (1.8-7.7); NEUTROPHILS % (AUTO) 72.1 % (42-75); PLATELET COUNT 122 X10'3 (140-440); RED BLOOD COUNT 2.89 X10'6 (4.70-6.10); RED CELL DISTRIBUTION WIDTH 16.9 % (11.5-14.5); RETICULOCYTE % (AUTO) 3.2 % (0.5-1.5); WHITE BLOOD COUNT 3.8 X10'3 (4.5-11.0)
[2023-05-10 09:16] LABS: ALANINE AMINOTRANSFERASE 14 U/L (12-78); ALBUMIN 2.7 G/DL (3.4-5.0); ALBUMIN/GLOBULIN RATIO 0.8 (1.1-1.5); ALKALINE PHOSPHATASE 127 IU/L (46-116); ANION GAP 8 (8-16); ASPARTATE AMINO TRANSFERASE 14 U/L (10-37); BILIRUBIN,TOTAL 0.3 MG/DL (0.1-1.0); BLOOD UREA NITROGEN 8 MG/DL (7-18); BUN/CREATININE RATIO 8.6 (10.0-20.0); CALCIUM 9.1 MG/DL (8.5-10.1); CHLORIDE 108 MMOL/L (99-107); CREATININE 0.93 MG/DL (0.60-1.10); GLUCOSE 131 MG/DL (70-104); POTASSIUM 3.7 MMOL/L (3.5-5.1); SODIUM 143 MMOL/L (135-145); TOTAL PROTEIN 6.1 G/DL (6.4-8.2); eCRCL 98 ML/MIN; eGFR 82 ML/MIN
[2023-05-10] MEDS: buPROPion SR 150mg tablet PO SCH ×2 (09:33→19:40)
[2023-05-10] MEDS: multivitamins, therapeutics tablet PO SCH ×2 (09:34→19:41)
[2023-05-10] MEDS: clopidogrel 75mg tablet PO SCH (09:34)
[2023-05-10] MEDS: pantoprazole 40mg Tablet.DR PO SCH (09:34)
[2023-05-10] MEDS: busPIRone 15mg tablet PO SCH ×2 (09:34→19:41)
[2023-05-10] MEDS: aspirin 81mg, enteric-coated 1 TAB TABLET.DR PO SCH (09:35)
[2023-05-10] MEDS: atorvastatin 20mg tablet PO SCH (09:36)
[2023-05-10] MEDS: ezetimibe 10mg tablet PO SCH (09:36)
[2023-05-10] MEDS: pregabalin 75mg capsule PO SCH ×2 (09:37→19:41)
[2023-05-10] MEDS: levoFLOXACIN-Levaquin 750MG/D5 150 ML IV SCH (09:42)
[2023-05-10] MEDS: linezolid 600mg/300ml PREMIX 300 ML IV SCH (09:58)
[2023-05-10] MEDS ORDERED: DAPTOmycin inj. 500 MG in normal saline 100ml IV soln 100 ML IV SCH (10:25)
[2023-05-10] MEDS: HYDROmorphone inj. 0.5 MG/0.5 ML DISP.SYRIN IV PRN ×3 (11:31→23:46)
[2023-05-10] MEDS: DAPTOmycin inj. 500 MG in normal saline 100ml IV soln 100 ML IV SCH (12:06)
[2023-05-10] MEDS: lamoTRIgine 100mg tablet PO SCH (21:20)
[2023-05-10] MEDS: traZODone 50mg tablet PO SCH (21:21)
[2023-05-11 02:00] VITALS: BP 115/47; PULSE 91; RESP 18; TEMP 98.8; O2SAT 97
[2023-05-11] MEDS: HYDROcodone/acetaminophen 10/325mg tab PO PRN ×3 (02:02→12:01)
[2023-05-11] MEDS: HYDROmorphone inj. 0.5 MG/0.5 ML DISP.SYRIN IV PRN (03:39)
[2023-05-11 07:00] VITALS: BP 105/55; PULSE 73; RESP 15; TEMP 98.3; O2SAT 96
[2023-05-11] MEDS: docusate sodium 100mg/10ml UD cup PO SCH (08:00)
[2023-05-11] MEDS ORDERED: atorvastatin 20mg tablet PO SCH (08:00)
[2023-05-11 08:08] VITALS: PULSE 87; RESP 18; O2SAT 97
[2023-05-11] MEDS: budesonide 0.5mg/2ml UD nebule IH SCH (08:08)
[2023-05-11] MEDS: ipratropium/albuterol 3ml nebule NEB SCH (08:08)
[2023-05-11 08:16] VITALS: PULSE 86; RESP 18
[2023-05-11 08:35] LABS: CREATINE KINASE 9 U/L (39-308)
[2023-05-11] MEDS: aspirin 81mg, enteric-coated 1 TAB TABLET.DR PO SCH (09:13)
[2023-05-11] MEDS: multivitamins, therapeutics tablet PO SCH (09:13)
[2023-05-11] MEDS: pantoprazole 40mg Tablet.DR PO SCH (09:13)
[2023-05-11] MEDS: buPROPion SR 150mg tablet PO SCH (09:14)
[2023-05-11] MEDS: pregabalin 75mg capsule PO SCH (09:14)
[2023-05-11] MEDS: busPIRone 15mg tablet PO SCH (09:14)
[2023-05-11] MEDS: ezetimibe 10mg tablet PO SCH (09:14)
[2023-05-11] MEDS: clopidogrel 75mg tablet PO SCH (09:14)
[2023-05-11] MEDS: DAPTOmycin inj. 500 MG in normal saline 100ml IV soln 100 ML IV SCH (09:22)
[2023-05-11] MEDS: levoFLOXACIN-Levaquin 750MG/D5 150 ML IV SCH (09:22)
[2023-05-11 12:01] VITALS: RESP 16
[2023-05-11] MEDS ORDERED: LEVO750T68 PO (13:21)
[2023-05-11] MEDS ORDERED: HYDR-3972 PO (13:21)
[2023-05-12] MEDS ORDERED: levoFLOXACIN 750MG TABLET PO SCH (08:00)
== END 2023-05-11 16:01 | disposition home health service (06) | DRG 181 ==
LOC: ORTHO 4S 16:00 → UNDOADMIN 16:00 → ORTHO 4S 18:08 → CICU 2S 05-04 20:41 → PCU 3S 05-07 13:17
PROVIDERS: ADMIT Family Medicine; ATTEND Internal Medicine
PROC: 04UL0KZ Supplement Left Femoral Artery with Nonautologous Tissue Substitute, Open Approach (ICD-10-PCS; 2023-05-04)
PROC: 30233N1 Transfusion of Nonautologous Red Blood Cells into Peripheral Vein, Percutaneous Approach (ICD-10-PCS; 2023-05-04)
PROC: 02HV33Z Insertion of Infusion Device into Superior Vena Cava, Percutaneous Approach (ICD-10-PCS; 2023-05-04)
PROC: 03HY32Z Insertion of Monitoring Device into Upper Artery, Percutaneous Approach (ICD-10-PCS; 2023-05-04)
PROC: 04PY0JZ Removal of Synthetic Substitute from Lower Artery, Open Approach (ICD-10-PCS; principal; 2023-05-04 18:48)
DX: T82.7XXA Infection and inflammatory reaction due to other cardiac and vascular devices, implants and grafts, initial encounter (principal); D61.818 Other pancytopenia; T81.31XA Disruption of external operation (surgical) wound, not elsewhere classified, initial encounter; C15.9 Malignant neoplasm of esophagus, unspecified; D62 Acute posthemorrhagic anemia; T82.898A Other specified complication of vascular prosthetic devices, implants and grafts, initial encounter; B95.2 Enterococcus as the cause of diseases classified elsewhere; B96.1 Klebsiella pneumoniae [K. pneumoniae] as the cause of diseases classified elsewhere; E78.00 Pure hypercholesterolemia, unspecified; Y83.2 Surgical operation with anastomosis, bypass or graft as the cause of abnormal reaction of the patient, or of later complication, without mention of misadventure at the time of the procedure; J44.9 Chronic obstructive pulmonary disease, unspecified; G62.9 Polyneuropathy, unspecified; N18.9 Chronic kidney disease, unspecified; I12.9 Hypertensive chronic kidney disease with stage 1 through stage 4 chronic kidney disease, or unspecified chronic kidney disease; I73.9 Peripheral vascular disease, unspecified; Z82.49 Family history of ischemic heart disease and other diseases of the circulatory system; Z82.5 Family history of asthma and other chronic lower respiratory diseases; Z83.3 Family history of diabetes mellitus; Z82.0 Family history of epilepsy and other diseases of the nervous system; Z80.3 Family history of malignant neoplasm of breast; Y92.89 Other specified places as the place of occurrence of the external cause; Z88.8 Allergy status to other drugs, medicaments and biological substances; Z91.030 Bee allergy status; Z87.891 Personal history of nicotine dependence; Z92.21 Personal history of antineoplastic chemotherapy; Z92.3 Personal history of irradiation
CPT/HCPCS: 36415; 36430; 36600; 71045; 80048; 80053; 80061; 80202; 82550; 82803; 83605; 83735; 84100; 84478; 85007; 85018; 85025; 85045; 85610; 85730; 86870; 86880; 86885; 86900; 86901; 86902; 86905; 86920; 86922; 86945; 87040; 87070; 87075; 87077; 87081; 87186; 93005; 94002; 94003; 94640; 94760; 97116; 97161; 97530; A4333; A4615; A4618; A6196; A6209; A6222; A6224; A6243; A6253; A6258; A6446; A6449; A6455; A7000; C1758; G0378; J0610; J0878; J1100; J1170; J1644; J1956; J2020; J2250; J2370; J2405; J2543; J2597; J2704; J2720; J3010; J3370; J3480; J3490; J7030; J7040; J7120; P9016; P9045; Q9967

== ENCOUNTER 2023-06-02 19:49 | Outpatient (CLI) | payer MEDICAID ==
[~2023-06-02 19:49] MED LIST changes: -CLOP75TA34 PO; +HYDR-3972 PO; +LEVO750T68 PO; -rocuronium 10mg/ml inj IV ONE
[2023-06-02 20:07] LABS: BASOPHILS % (AUTO) 0.2 % (0-1); EOSINOPHILS # (AUTO) 0.3 X10'3 (0-0.9); EOSINOPHILS % (AUTO) 5.2 % (0-6); HEMATOCRIT 34.1 % (42.0-52.0); HEMOGLOBIN 11.4 g/dl (14.0-17.9); LYMPHOCYTES # (AUTO) 0.2 X10'3 (1.1-4.8); LYMPHOCYTES % (AUTO) 2.7 % (21-51); MEAN CORPUSCULAR HEMOGLOBIN 30.2 PG (27.0-31.0); MEAN CORPUSCULAR HGB CONC 33.5 g/dL (33.0-36.5); MEAN CORPUSCULAR VOLUME 90.2 FL (78-98); MEAN PLATELET VOLUME 7.6 FL (7.4-10.4); MONOCYTES # (AUTO) 0.9 X10'3 (0-0.9); MONOCYTES % (AUTO) 14.3 % (2-12); NEUTROPHILS # (AUTO) 4.8 X10'3 (1.8-7.7); NEUTROPHILS % (AUTO) 77.6 % (42-75); PLATELET COUNT 296 X10'3 (140-440); RED BLOOD COUNT 3.79 X10'6 (4.70-6.10); RED CELL DISTRIBUTION WIDTH 18.9 % (11.5-14.5); WHITE BLOOD COUNT 6.1 X10'3 (4.5-11.0)
[2023-06-02 20:13] LABS: ALBUMIN 3.3 G/DL (3.4-5.0); ANION GAP 10 (8-16); BLOOD UREA NITROGEN 10 MG/DL (7-18); C-REACTIVE PROTEIN 3.44 MG/DL (0.0-0.5); CHLORIDE 107 MMOL/L (99-107); CREATININE 0.83 MG/DL (0.60-1.10); GLUCOSE 121 MG/DL (70-104); POTASSIUM 4.2 MMOL/L (3.5-5.1); SODIUM 143 MMOL/L (135-145); eGFR > 90 ML/MIN
[2023-06-02 22:14] LABS: ANISOCYTOSIS 2+; PLATELET ESTIMATE NORMAL
[2023-06-02 22:15] LABS: ELLIPTOCYTES FEW; TEAR DROP CELLS FEW
== END 2023-06-02 23:59 | disposition home or self-care (01) ==
LOC: LAB SPEC 19:49
PROVIDERS: ATTEND Internal Medicine Infectious Disease
DX: A49.01 Methicillin susceptible Staphylococcus aureus infection, unspecified site (principal)
CPT/HCPCS: 36415; 80048; 85008; 85025; 86140